=== PATIENT | female | born 1995 | race Caucasian/White ===

== ENCOUNTER → 2020-05-07 11:50 | Outpatient (CLI) | payer BC, SELFPAY ==
[2020-05-07 11:14] VITALS: BMI 23.6
[2020-05-07 12:35] LABS: hCG Titer Quant., Serum 514 mIU/mL (1-3)
== END ==
PROVIDERS: PCP Family Medicine; Referring Provider Obstetrics & Gynecology; Visit Provider Obstetrics & Gynecology
DX: O20.0 Threatened abortion (principal)
CPT/HCPCS: 36415; 84702

== ENCOUNTER → 2020-05-09 09:26 | Outpatient (CLI) | payer BC, SELFPAY ==
[2020-05-07 11:14] VITALS: BMI 23.6
[2020-05-09 10:56] LABS: hCG Titer Quant., Serum 1175 mIU/mL (1-3)
== END ==
PROVIDERS: PCP Family Medicine; Visit Provider Obstetrics & Gynecology
DX: O20.0 Threatened abortion (principal)
CPT/HCPCS: 36415; 84702

== ENCOUNTER → 2020-06-02 | Outpatient (CLI) | payer BC, SELFPAY ==
[2020-06-02 11:32] VITALS: BMI 27.8
[2020-06-02 14:23] LABS: Amphetamine Urine VISTA NEGATIVE (<1000 ng/mL); Barbiturate Urine VISTA NEGATIVE (< 200 ng/mL); Benzodiazepine Urine VISTA NEGATIVE (< 200 ng/mL); Cocaine Urine VISTA NEGATIVE (< 300 ng/mL); Ecstacy Urine VISTA NEGATIVE (< 500 ng/mL); Methadone Urine VISTA NEGATIVE (< 300 ng/mL); PCP Urine VISTA NEGATIVE (< 25 ng/mL); THC Urine VISTA NEGATIVE (< 50 ng/mL); Vista UDS pH Range 7
[2020-06-04 20:34] LABS: HPV Reflexed? NOT INDICATED
[2020-06-05 03:06] LABS: Chlamydia By Nucleic Acid AMP Negative (Negative)
[2020-06-05 14:12] LABS: Gonococcus By Nucleic Acid AMP Negative (Negative)
== END | disposition home or self-care (01) ==
PROVIDERS: PCP Family Medicine; Referring Provider Obstetrics & Gynecology; Visit Provider Obstetrics & Gynecology
DX: Z34.00 Encounter for supervision of normal first pregnancy, unspecified trimester (principal)
CPT/HCPCS: 80307; 87086; 87088; 87491; 87591; 88175; G0145

== ENCOUNTER → 2020-06-15 08:16 | Outpatient (CLI) | payer BC, SELFPAY ==
[2020-06-02 11:32] VITALS: BMI 27.8
[2020-06-15 08:47] LABS: Absolute Lymphocyte Count 2.24 X10^3/uL (0.83-4.51); Absolute Neutrophil Count 6.2 X10^3/uL (2.0-7.7); Basophil# 0.04 X10^3/uL; Basophil% 0.4 % (0-1); Eosinophil# 0.11 X10^3/uL; Eosinophils% 1.2 % (0-5); Hematocrit 38.2 % (37-47); Hemoglobin 12.8 g/dL (12.0-15.0); Lymphocyte # 2.24 X10^3/ul (4.0); Lymphocyte % 24.5 % (19-41); Mean Corp Hgb Conc 33.5 g/dL (32-36); Mean Corpuscular Hgb 29.6 pg (27.0-32.0); Mean Corpuscular Volume 88.2 fL (81-99); Mean Platelet Vol. 9.1 fl (6.2-12.0); Monocyte% 5.5 % (0-10); NRBC Flagged by Analyzer 0 % (0-5); Neutrophil # 6.23 X10^3/uL (2.7-7.7); Platelet Count 347 K/mm3 (150-450); RBC Distribution Width CV 13.1 % (11.6-14.6); RBC Distribution Width SD 42.3 fl (35.1-43.9); Red Blood Count 4.33 M/mm3 (4.2-5.4); White Blood Count 9.2 K/mm3 (4.4-11.0)
[2020-06-15 09:15] LABS: Thyroid Stim Hormone (TSH) 3.41 uIU/mL (0.358-3.74)
[2020-06-15 10:38] LABS: HIV - WCH Non-Reactive (Nonreactive); Hepatitis B Surface Antigen Non-Reactive (Nonreactive); Hepatitis C Antibody Non-Reactive (Nonreactive); Rubella IgG 120.5 IU/mL
[2020-06-15 17:09] LABS: NATERA MAILED SPECIMEN
[2020-06-17 03:03] LABS: Rapid Plasmin Reagin (RPR) NONREACTIVE (NONREACTIVE)
== END ==
PROVIDERS: PCP Family Medicine; Referring Provider Obstetrics & Gynecology; Visit Provider Obstetrics & Gynecology
DX: Z34.81 Encounter for supervision of other normal pregnancy, first trimester (principal)
CPT/HCPCS: 36415; 84443; 85025; 86592; 86703; 86762; 86803; 86850; 86900; 86901; 87340

== ENCOUNTER → 2020-06-30 11:27 | Outpatient (CLI) | payer BC, SELFPAY ==
[2020-06-30 10:52] VITALS: BMI 27.6
== END ==
PROVIDERS: PCP Family Medicine; Referring Provider Obstetrics & Gynecology; Visit Provider Obstetrics & Gynecology
DX: Z34.81 Encounter for supervision of other normal pregnancy, first trimester (principal)

== ENCOUNTER → 2020-10-18 08:49 | Outpatient (CLI) | payer BC, SELFPAY ==
[2020-09-21 13:07] VITALS: BMI 29.8
[2020-10-18 09:19] LABS: Absolute Lymphocyte Count 1.91 X10^3/uL (0.83-4.51); Absolute Neutrophil Count 10.5 X10^3/uL (2.0-7.7); Basophil# 0.07 X10^3/uL; Basophil% 0.5 % (0-1); Eosinophil# 0.06 X10^3/uL; Eosinophils% 0.4 % (0-5); Hematocrit 36.1 % (37-47); Hemoglobin 12.1 g/dL (12.0-15.0); Lymphocyte # 1.91 X10^3/ul (4.0); Lymphocyte % 14.2 % (19-41); Mean Corp Hgb Conc 33.5 g/dL (32-36); Mean Corpuscular Hgb 29.9 pg (27.0-32.0); Mean Corpuscular Volume 89.1 fL (81-99); Mean Platelet Vol. 9.1 fl (6.2-12.0); Monocyte# 0.67 X10^3/uL; NRBC Flagged by Analyzer 0 % (0-5); Neutrophil # 10.49 X10^3/uL (2.7-7.7); Neutrophil % 78.2 % (47-70); Platelet Count 329 K/mm3 (150-450); RBC Distribution Width CV 12.8 % (11.6-14.6); RBC Distribution Width SD 41.4 fl (35.1-43.9); Red Blood Count 4.05 M/mm3 (4.2-5.4); White Blood Count 13.4 K/mm3 (4.4-11.0)
[2020-10-18 09:39] LABS: Glucose Challenge Gest 1H 50g 139 mg/dL (70-140); Thyroid Stim Hormone (TSH) 9.52 uIU/mL (0.358-3.74)
== END ==
PROVIDERS: PCP Family Medicine; Referring Provider Obstetrics & Gynecology; Visit Provider Obstetrics & Gynecology
DX: O99.280 Endocrine, nutritional and metabolic diseases complicating pregnancy, unspecified trimester (principal); E89.0 Postprocedural hypothyroidism; Z13.1 Encounter for screening for diabetes mellitus; Z3A.00 Weeks of gestation of pregnancy not specified
CPT/HCPCS: 36415; 82950; 84439; 84443; 85025

== ENCOUNTER → 2020-10-21 06:47 | Outpatient (CLI) | payer BC, SELFPAY ==
[2020-10-18 09:33] VITALS: BMI 30.9
[2020-10-21 08:03] LABS: Glucose GTT-Gestation. Fasting 72 mg/dL (<105)
[2020-10-21 08:53] LABS: Glucose GTT-Gestational 1 Hr 203 mg/dL (<190)
[2020-10-21 09:33] LABS: Glucose GTT-Gestational 2 Hr 181 mg/dL (<165)
[2020-10-21 10:47] LABS: Glucose GTT-Gestational 3 Hr 126 L (<145)
== END ==
PROVIDERS: PCP Family Medicine; Referring Provider Obstetrics & Gynecology; Visit Provider Obstetrics & Gynecology
DX: O99.810 Abnormal glucose complicating pregnancy (principal); Z3A.00 Weeks of gestation of pregnancy not specified
CPT/HCPCS: 36415; 82951; 82952

== ENCOUNTER → 2020-11-15 08:46 | Outpatient (CLI) | payer BC, SELFPAY ==
[2020-11-01 13:41] VITALS: BMI 29.9
--- NOTE | 2020-11-15 08:49 | US_ITS ---
STUDY: SECOND AND THIRD TRIMESTER OBSTETRICAL ULTRASOUND - LIMITED REASON FOR EXAM: Female, 25 years old growth LMP: 04/04/2020. PRIOR ULTRASOUND: None. TECHNIQUE: Transabdominal TECHNICAL QUALITY: Adequate. FINDINGS: There is a single intrauterine fetus. The fetus is in an transverse lie with the head on the maternal left side. There is demonstrated cardiac activity with a heart rate of 147 bpm. There is a normal amniotic fluid volume. The largest amniotic fluid pocket measures 6.8 cm. The amniotic fluid index (ADRIANA) is 18.3 cm. The placenta is anterior and fundal in location and is not low lying. There are Grade 2 placental changes. The cervix measures 5.85 cm in length. BIOMETRY: BPD: 8.2 cm: 32 weeks, 6 days HC: 30.3 cm: 33 weeks, 4 days AC: 28.5 cm: 32 weeks, 3 days FL: 6.4 cm: 32 weeks, 5 days Age by LMP: 32 weeks, 1 days. MICHAEL by LMP: 01/09/2021. age by current US: 32 weeks, 6 days. MICHAEL by current US: 01/04/2021. Estimated weight: 2049 grams, +/- 307 grams, 60 percentile. US/OB Limited With Biometrics IMPRESSION: Single live intrauterine gestation with a mean gestational age of 32 weeks and 6 days. Electronically Signed: Darwin Cunningham MD at 10:56 EDT , Service support ,
== END ==
PROVIDERS: PCP Family Medicine; Referring Provider Obstetrics & Gynecology; Visit Provider Obstetrics & Gynecology
DX: O24.410 Gestational diabetes mellitus in pregnancy, diet controlled (principal); Z3A.32 32 weeks gestation of pregnancy
CPT/HCPCS: 76816

== ENCOUNTER → 2020-11-24 08:21 | Outpatient (CLI) | payer BC, SELFPAY ==
[2020-11-15 13:24] VITALS: BMI 30.4
[2020-11-24 09:15] LABS: T4 Free Direct 1.28 ng/dL (0.76-1.46); Thyroid Stim Hormone (TSH) 0.74 uIU/mL (0.358-3.74)
[2020-11-24 16:38] LABS: Xtra Tube EP Lab EXTRA TUBE
== END ==
PROVIDERS: PCP Family Medicine; Referring Provider Internal Medicine Endocrinology, Diabetes & Metabolism; Visit Provider Internal Medicine Endocrinology, Diabetes & Metabolism
DX: O99.280 Endocrine, nutritional and metabolic diseases complicating pregnancy, unspecified trimester (principal); E03.9 Hypothyroidism, unspecified; Z3A.00 Weeks of gestation of pregnancy not specified
CPT/HCPCS: 36415; 84439; 84443

== ENCOUNTER 2020-11-24 09:30 | Outpatient (RCR) | payer BC, SELFPAY ==
[2020-10-25 14:09] VITALS: BMI 30.9
== END 2020-11-24 23:59 ==
LOC: NS 09:30
PROVIDERS: PCP Family Medicine; Visit Provider Obstetrics & Gynecology
DX: Z71.3 Dietary counseling and surveillance (principal); O24.419 Gestational diabetes mellitus in pregnancy, unspecified control; Z3A.00 Weeks of gestation of pregnancy not specified
CPT/HCPCS: 97802; G0108

== ENCOUNTER → 2020-12-13 | Outpatient (CLI) | payer BC, SELFPAY ==
[2020-12-13 13:40] VITALS: BMI 30.9
== END | disposition home or self-care (01) ==
LOC: LABSPEC 17:00
PROVIDERS: PCP Family Medicine; Referring Provider Obstetrics & Gynecology; Visit Provider Obstetrics & Gynecology
DX: Z34.00 Encounter for supervision of normal first pregnancy, unspecified trimester (principal)
CPT/HCPCS: 87081

== ENCOUNTER → 2020-12-16 08:46 | Outpatient (CLI) | payer BC, SELFPAY ==
[2020-11-01 13:41] VITALS: BMI 29.9
[2020-12-13 13:40] VITALS: BMI 30.9
--- NOTE | 2020-12-16 08:49 | US_ITS ---
STUDY: SECOND AND THIRD TRIMESTER OBSTETRICAL ULTRASOUND - LIMITED REASON FOR EXAM: Female, 25 years old . growth. Gestational diabetes. LMP: 04/04/2020. PRIOR ULTRASOUND: Comparison is made with prior study dated 11/15/2020. TECHNIQUE: Transabdominal TECHNICAL QUALITY: Adequate. FINDINGS: There is a single intrauterine fetus. The fetus is in a cephalic presentation. There is demonstrated cardiac activity with a heart rate of 145 bpm. There is a normal amniotic fluid volume. The largest amniotic fluid pocket measures 5. cm. The amniotic fluid index (ADRIANA) is 12.4 cm. The placenta is anterior in location and is not low lying. There are Grade 3 placental changes. BIOMETRY: BPD: 9.1 cm: 37 weeks, 0 days HC: 32.9 cm: 37 weeks, 2 days AC: 32.2 cm: 36 weeks, 0 days FL: 6.8 cm: 35 weeks, 0 days Age by LMP: 36 weeks, 4 days. MICHAEL by LMP: 01/09/2021. age by prior US: 37 weeks, 2 days. MICHAEL by prior US: 01/04/2021. age by current US: 36 weeks, 1 days. MICHAEL by current US: 01/11/2021. Estimated weight: 2826 grams, +/- 424 grams, 42 percentile. US/OB Limited With Biometrics IMPRESSION: Single live intrauterine gestation with a mean gestational age of 37 weeks and 2 days. The measurements obtained today fall within the normal expected range. Electronically Signed: Darwin Cunningham MD at 11:10 EDT , Service support ,
== END ==
PROVIDERS: PCP Family Medicine; Referring Provider Obstetrics & Gynecology; Visit Provider Obstetrics & Gynecology
DX: O24.410 Gestational diabetes mellitus in pregnancy, diet controlled (principal); Z3A.37 37 weeks gestation of pregnancy
CPT/HCPCS: 76816

== ENCOUNTER → 2021-01-03 15:29 | Outpatient (CLI) | payer BC, SELFPAY ==
[2020-12-13 13:40] VITALS: BMI 30.9
[2021-01-03 13:24] VITALS: BMI 31.3
== END ==
PROVIDERS: PCP Family Medicine; Visit Provider Obstetrics & Gynecology
DX: Z34.90 Encounter for supervision of normal pregnancy, unspecified, unspecified trimester (principal)
CPT/HCPCS: 87635; C9803; U0002

== ENCOUNTER 2021-01-07 05:00 | Inpatient (IN) | payer BC, SELFPAY ==
[2021-01-03 13:24] VITALS: BMI 31.3
[2021-01-07] VITALS (40 sets, daily range): BP systolic 110–151; BP diastolic 63–92; PULSE 83–116; TEMP 36.6–37.8; O2SAT 97–100; BMI 32.3
[2021-01-07] MEDS: Lactated Ringers 1,000 ML 50 ML IV (06:45)
[2021-01-07 06:56] LABS: Bedside Glucose 102 mg/dL (70-110)
--- NOTE | 2021-01-07 07:33 | HP.PCM.OB_ITS ---
HPI - General General Date of Admission: 01/07/21 HPI Narrative MERON GO, is a 25 F at 39/5 who presents with contractions and was scheduled for IOL for GDMA1 this am. COUNT INCLUDES THE [facility] Medical History (Updated 01/07/21 @ 07:[address] 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 Thyroid disease Thyroid nodule Home Medications multivitamin no.47-iron fum 27 mg-folate no.1 1 mg-dha 300 mg capsule 1 cap PO DAILY 05/25/20 [History Last Taken Unknown] blood sugar diagnostic #100 ea 10/21/20 [Rx Last Taken Unknown] blood-glucose meter #1 ea 10/21/20 [Rx Last Taken Unknown] lancets 30 gauge #100 ea 10/21/20 [Rx Last Taken Unknown] blood-glucose meter #1 ea 10/26/20 [History Last Taken Unknown] levothyroxine 175 mcg tablet 175 mcg PO DAILY tab 10/26/20 [History Last Taken Unknown] Allergy/AdvReac Type Severity Reaction Status Date / Time ibuprofen [From Advil] Allergy Severe mouth Verified 01/07/21 05:37 tingles and tounge swells naproxen [From Aleve] Allergy Severe Anaphylaxis Verified 01/07/21 05:37 Family History Other Colon cancer Diabetes Heart disease Surgical History H/O thyroidectomy (~2009) History of tonsillectomy and adenoidectomy Social History household members: spouse current occupational status: employed current occupation: [employer] pets and animals: Yes Smoking Status: Former smoker second hand exposure: No alcohol intake: never substance use type: does not use seatbelt use: always do you feel safe at home: Yes additional social history: REBECCA Sylvester History 1 Elective abortions Hx Para 0 Spontaneous abortions Hx # Term Pregnancies Ectopic pregnancies Hx # Pregnancies Multiple births # of living children Visit Details Expected Delivery Route/Plan Labor Preferences- CB/BF classes: discussed, planning , labor support person: [place], mom- Audria labor intervention preferences: pain management options preferred: epidural cut cord/dad catch: yes : yes PP control planned: pill discussed possible routes of delivery and associated risks: discussed possible delivery modalities and possible indications for each including R/B/A of , VAVD, FAVD, and CS. questions answered. special requests: [] Plans flu vaccine: decline tdap vaccine: given rhogam: na LARC form signed: declined movement and labor precautions reviewed. Problem list reviewed and updated with the most current plan of care details and appropriate orders placed. Relevant counseling for the gestational age provided. Continue routine care and follow up unless otherwise noted in visit notes/problem list details OB Flowsheet Initial Weight: 172 lb Date -?-?-?-?-?-?-?-?-?-?-?-?- EGA Weight BP Urine Prot -?-?-?-?-?-?-?-?-?-?-?-?- Glucose FHR FuHt Pres Dilation -?-?-?-?-?-?-?-?-?-?-?-?- Effaced St Visit Note 06/02/20 -?-?-?-?-?-?-?-?-?-?-?-?- 8w 3d 172 lb 8 oz (+8 oz) 126/80 -?-?-?-?-?-?-?-?-?-?-?-?- 170 -?-?-?-?-?-?-?-?-?-?-?--?- GP - CRL consist ent with LMP. 06/30/20 -?-?-?-?-?-?-?-?-?-?-?-?- 12w 3d 171 lb 2 oz (-14 oz) 124/82 -?-?-?-?-?-?-?-?-?-?-?-?- 160 -?-?-?-?-?-?-?-?-?-?-?-?- GP - no cramping or bleeding. PRR. Discussed NIPT low fraction - repeat blood draw today. 07/27/20 -?-?-?-?-?-?-?-?-?-?-?-?- 16w 2d 173 lb 6 oz (+1 lb 6 oz) 104/70 Negative -?-?-?-?-?-?-?-?-?-?-?-?- Negative 156 -?-?-?-?-?-?-?-?-?-?-?--?- MH-No Vb, LOF. Denies concerns. Anatomy US 08/1208/25/20 -?-?-?-?-?-?-?-?-?-?-?-?- 20w 3d 176 lb 4 oz (+4 lb 4 oz) 110/72 Negative -?-?-?-?-?-?-?-?-?-?-?-?- Negative 155 -?-?-?-?-?-?-?-?-?-?-?-?- GP - no ctx, LOF , VB. +FM. Anatomy results reviewed. Discussed MFM recommended growth US 2/2 hypothyroid - after discussion with patient will plan for 1 growth at 36 weeks. 10/18/20 -?-?-?-?-?-?-?-?-?-?-?-?- 28w 1d 192 lb (+20 lb) 100/78 Negative -?-?-?-?-?-?-?-?-?-?-?-?- Negative 150 -?-?-?-?-?-?-?-?-?-?-?-?- SM- ordered 3 hr gtt, no vb lof good fm no regular ctx. planning CB classes, discussed abnl thyroid testing and glucose. 11/01/20 -?-?-?-?-?-?-?-?-?-?-?-?- 30w 1d 191 lb 4 oz (+19 lb 4 oz) 114/82 -?-?-?--?-?-?-?-?-?-?-?-?- 145 30 -?-?-?-?-?-?-?-?-?-?-?-?- GP - no LOF, VB, DFM, ctx. Discussed GDM diagnosis. BGTs controlled with diet. Discussed timing of delivery and growths q4w 11/15/20 -?-?-?-?-?-?-?-?-?-?-?-?- 32w 1d 194 lb (+22 lb) 124/78 Negative -?-?-?-?-?-?-?-?-?-?-?-?- Negative 140 32 -?-?-?-?-?-?-?-?-?-?-?-?- SM- no vb lof go od fm no regular ctx 11/29/20 -?-?-?-?-?-?-?-?-?-?-?-?- 34w 1d 195 lb (+23 lb) 120/76 Negative -?-?-?-?-?-?-?-?-?-?-?-?- Negative 145 34 -?-?-?-?-?-?-?-?-?-?-?-?- SM- no vb lof go od fm no regular ctx 12/13/20 -?-?-?-?-?-?-?-?-?-?-?-?- 36w 1d 197 lb 8 oz (+25 lb 8 oz) 116/90 120/82 Negative -?-?-?-?-?-?-?-?-?-?-?-?- Negative 140 36 Cephalic 0 .5 -?-?-?-?-?-?-?-?-?-?-?-?- 50 -3 GP - no LO F, VB, DFM, ctx. Discussed routes of delivery. BGTs well controlled with diet. 12/20/20 -?-?-?-?-?-?-?-?-?-?-?-?- 37w 1d 200 lb (+28 lb) -?-?-?-?-?-?-?-?-?-?-?-?- 140 37 Cephalic 1 -?-?-?-?-?-?-?-?-?-?-?-?- SM- no vb lof go od fm n regular ctx BS well controlled 12/27/20 -?-?-?-?-?-?-?-?-?-?-?-?- 38w 1d 203 lb 1 oz (+31 lb 1 oz) 120/86 Negative -?-?-?-?-?-?-?-?-?-?-?-?- Negative 140 38 Cephalic 1 -?-?-?-?-?-?-?-?-?-?-?-?- 50 -3 GP - no LO F, VB, dFM, ctx. BGTs controlled. Will schedule IOL at next visit. 01/03/21 -?-?--?-?-?-?-?-?-?-?-?-?- 39w 1d 201 lb (+29 lb) 120/82 Negative -?-?-?-?-?-?-?-?-?-?-?-?- Negative 140 39 Cephalic 1 -?-?-?-?-?-?-?-?-?-?--?-?- 50 -3 SM- no vb lof good fm n oreuglar ctx discussed IOL by the end of the week for GDMA1 01/07/21 -?-?-?-?-?-?-?-?-?-?-?-?- 39w 5d 200 lb 6 oz (+28 lb 6 oz) 151/92 136/78 133/79 131/83 124/84 -?-?-?-?-?-?-?-?-?-?-?-?- -?-?-?-?-?-?-?-?-?-?-?-?- GP - Admitted in active labor and for iol for GDMA1 NST FHR Rate Baby A Baseline: 140 Variability:: Moderate Accelerations:: 15 x 15 Decelerations:: None NST Reactive:: Yes FHR Category:: Category I Uterine Activity:: q5 min ROS Eyes Eyes: Reports systems reviewed and no addt'l complaints, except as documented ENT HEENT: Reports systems reviewed and no addt'l complaints, except as documented Cardiovascular Cardiovascular: Reports systems reviewed and no addt'l complaints, except as documented Respiratory/Chest Respiratory/Chest: Reports systems reviewed and no addt'l complaints, except as documented Gastrointestinal Gastrointestinal: Reports systems reviewed and no addt'l complaints, except as documented Genitourinary Genitourinary: Reports systems reviewed and no addt'l complaints, except as documented Musculoskeletal Musculoskeletal: Reports systems reviewed and no addt'l complaints, except as documented Integumentary Integumentary: Reports systems reviewed and no addt'l complaints, except as documented Neurologic Neurologic: Reports systems reviewed and no addt'l complaints, except as documented Psychiatric Psychiatric: Reports systems reviewed and no addt'l complaints, except as documented Endocrine Endocrinology: Reports systems reviewed and no addt'l complaints, except as documented Hematologic/Lymphatic Hematologic/Lymphatic: Reports systems reviewed and no addt'l complaints, except as documented Allergic/Immunologic Allergic/Immunologic: Reports systems reviewed and no addt'l complaints, except as documented Vital Signs Vital Signs Vital Signs: 01/07/21 05:12 01/07/21 05:28 01/07/21 05:43 Temperature Temperature Source Pulse Rate 113 H 101 H 94 Blood Pressure 151/92 H 136/78 H 133/79 H BP Systolic 151 136 133 BP Diastolic 92 78 79 Pulse Ox 01/07/21 05:58 01/07/21 06:06 01/07/21 07:24 Temperature 98.9 F 98.3 F Temperature Source Temporal Temporal Pulse Rate 116 H Blood Pressure 131/83 H BP Systolic 131 BP Diastolic 83 Pulse Ox 98 01/07/21 07:27 Temperature Temperature Source Pulse Rate 105 H Blood Pressure 124/84 H BP Systolic 124 BP Diastolic 84 Pulse Ox 97 Physical Exam Const alert, oriented x3, no apparent distress, average body habitus, healthy appearing and well nourished HEENT normocephalic and moist oral mucous membranes Head and Scalp: atraumatic Eyes PERRL and EOMs intact bilaterally Neck full ROM Resp normal respiratory effort, no retractions and no use of accessory muscles Cardio regular rate and regular rhythm GI soft to palpation, non-tender and non-distended Extremity normal to inspection and full ROM Skin no rashes or lesions noted Neuro no focal motor deficits and no sensory deficits noted Psych mental status grossly normal, affect normal, speech normal and activity/motor behavior normal Assessment & Plan (1) Active labor: PLAN: Patient presents IAL, plan expectant management for , pitocin/AROM PRN if needed. Pain management: plans epidural. GBS .negative Management of any complications: GDMA1 - BGTs per protocol [facility] and made any clinically relevant updates. (2) : QUALIFIERS: Weeks of gestation: 38 weeks Qualified Code(s): Z3A.38 - 38 weeks gestation of COMMENT: Declines carrier and AFP. NIPT low FF - repeated. NIPT low risk; NL anatomy (3) Supervision of normal first : QUALIFIERS: Trimester: third trimester Qualified Code(s): Z34.03 - Encounter for supervision of normal first , third trimester COMMENT: PRR MICHAEL 01/09/2021 Girl! Tiffanie Spouse: [place] (4) Thyroid disease affecting : (5) H/O thyroidectomy: COMMENT: [facility] rec serial growth US. After discussion with patient, as long as measuring appropriately will plan growth at 36w. (6) Gestational diabetes: QUALIFIERS: Gestational diabetes mellitus control: diet-controlled Trimester: third trimester Qualified Code(s): O24.410 - Gestational diabetes mellitus in , diet controlled COMMENT: Following with Dr. Jay. Diet controlled. Growths q4w. Timing of delivery 39-40w depending on glycemic control. NL growth 60% 11/15/20
--- NOTE | 2021-01-07 07:42 | DCINST_ITS ---
Discharge Instructions Diet Discharge Diet: No restrictions Activity Discharge Activity: May Not Drive (for 2 weeks), May not drive while taking narcotic pain medications., May Shower and May Take a Tub Bath (in 7 days) May shower in (days): 0 May resume sexual activity in: 4-6 weeks Weight Bearing Status: Full weight bearing Lifting Restrictions: 20 pounds Dressing / Incision Call your doctor if your incision/area has: Continuous Slow Oozing, Sudden Increased Bleeding, Increased Pain/ Swelling, Increased Redness and Foul Smel ling Discharge Call your doctor if you observe: Fever of 101 or Higher and Using more than one pad per hour (for 2 hours) Suture Line Care: Avoid Pulling/Pushing and Avoid Pinching/Bending Cleanse incision/area with: Soap & Water and Keep Dressing Clean & Dry Follow Up Care Please Follow Up With: Aileen Guardado MD When: Call [phone] to make an appointment for an incision check in 1-2 weeks. Test Results: Test results from this visit will be discussed in further detail at your follow-up appointment, if applicable. Discharge Plan Admission Admit Date/Time: 01/07/21 05:00 Attending Provider: Alis Miranda Primary Care Provider: Frank Shoemaker Discharge Orders/Prescriptions Prescriptions: No Action PNV-DHA 27 mg iron-1 mg -300 mg capsule 1 cap PO DAILY RF: 0 levothyroxine 175 mcg tablet 175 mcg PO DAILY RF: 0 (DME) blood-glucose meter Kit See Rx Instructions ea .ROUTE .MEDSUPPLY Qty: 1 RF: 0 (DME) blood-glucose meter Misc See Rx Instructions .ROUTE .MEDSUPPLY Qty: 1 RF: 0 (DME) Blood Glucose Test Strip See Rx Instructions .ROUTE .MEDSUPPLY Qty: 100 RF: 6 (DME) lancets 30 gauge misc See Rx Instructions .ROUTE .MEDSUPPLY Qty: 100 RF: 6 Referrals / Follow Up: Frank Shoemaker [Primary Care Provider] -
--- NOTE | 2021-01-07 07:48 | PN.OBGYN_ITS ---
Objective Data Objective Data Vital Signs: Vital Signs Temp Pulse BP Pulse Ox 98.3 F 105 H 124/84 H 97 01/07/21 07:24 01/07/21 07:27 01/07/21 07:27 01/07/21 07:27 Weight: 200 lb 6 oz Body Mass Index (BMI) 32.3 Lab / Micro Data Result Diagrams: 01/07/21 06:35 Labs: Laboratory Results - last 24 hr 01/07/21 01/07/21 01/07/21 06:27 06:35 06:35 WBC Cancelled Corrected WBC Cancelled RBC Cancelled Hgb Cancelled Hct Cancelled MCV Cancelled MCH Cancelled MCHC Cancelled RDW Std Deviation Cancelled RDW Coeff of Abdiaziz Cancelled Plt Count Cancelled MPV Cancelled Immature Gran % (Auto) Cancelled Neut % (Auto) Cancelled Lymph % (Auto) Cancelled [place] % (Auto) Cancelled Eos % (Auto) Cancelled Baso % (Auto) Cancelled Absolute Neuts (auto) Cancelled Absolute Lymphs (auto) Cancelled Total Counted Cancelled Neutrophils % (Manual) Cancelled Band Neutrophils % Cancelled Lymphocytes % (Manual) Cancelled Monocytes % (Manual) Cancelled Eosinophils % (Manual) Cancelled Basophils % (Manual) Cancelled Metamyelocytes % Cancelled Myelocytes % Cancelled Promyelocytes % Cancelled Blast Cells % Cancelled Plasma Cell % (Manual) Cancelled Other Cells % Cancelled Nucleated RBC % Cancelled Nucleated RBCs/100 WBC Cancelled Differential Comment Cancelled Diff Path Review Cancelled Hypersegmented Neuts Cancelled Atypical Lymphocytes Cancelled Reactive Lymphocytes Cancelled Smudge Cells Cancelled Toxic Granulation Cancelled Toxic Vacuolation Cancelled Dohle Bodies Cancelled Carolina Rods Cancelled Platelet Estimate Cancelled Plt Morphology Comment Cancelled RBC Morphology Cancelled Polychromasia Cancelled Hypochromasia Cancelled Poikilocytosis Cancelled Basophilic Stippling Cancelled Anisocytosis Cancelled Microcytosis Cancelled Macrocytosis Cancelled Spherocytes Cancelled Sickle Cells Cancelled Target Cells Cancelled Tear Drop Cells Cancelled Ovalocytes Cancelled Stomatocytes Cancelled [place] Bodies Cancelled Francisco Cells Cancelled Bite Cells Cancelled Crenated Cell Cancelled Acanthocytes (Spur) Cancelled Rouleaux Cancelled Schistocytes Cancelled POC Glucose 102 Blood Type Cancelled Antibody Screen Cancelled Assessment & Plan (1) Active labor: PLAN: s/p PPD # 2 1. routine post delivery care 2. breast feeding- support given 3. rh positive 4. rubella immune
[2021-01-07 08:31] LABS: Absolute Lymphocyte Count 2.06 X10^3/uL (0.83-4.51); Absolute Neutrophil Count 10.5 X10^3/uL (2.0-7.7); Basophil# 0.06 X10^3/uL; Basophil% 0.4 % (0-1); Eosinophil# 0.31 X10^3/uL; Eosinophils% 2.2 % (0-5); Hematocrit 39.1 % (37-47); Hemoglobin 12.6 g/dL (12.0-15.0); Lymphocyte # 2.06 X10^3/ul (0.83-4.51); Lymphocyte % 14.7 % (19-41); Mean Corp Hgb Conc 32.2 g/dL (32-36); Mean Corpuscular Hgb 28.2 pg (27.0-32.0); Mean Corpuscular Volume 87.5 fL (81-99); Mean Platelet Vol. 9.6 fl (6.2-12.0); Monocyte# 0.99 X10^3/uL; NRBC Flagged by Analyzer 0 % (0-5); Neutrophil # 10.48 X10^3/uL (2.7-7.7); Neutrophil % 74.6 % (47-70); Platelet Count 328 K/mm3 (150-450); RBC Distribution Width CV 13.2 % (11.6-14.6); RBC Distribution Width SD 41.9 fl (35.1-43.9); Red Blood Count 4.47 M/mm3 (4.2-5.4); White Blood Count 14.1 K/mm3 (4.4-11.0)
[2021-01-07 08:36] LABS: Bedside Glucose 105 mg/dL (70-110)
[2021-01-07] MEDS: Oxytocin 30 units/NS 500 ml 30 UNITS/500 ML IV.SOLN IV (09:33)
[2021-01-07 10:36] LABS: Bedside Glucose 113 mg/dL (70-110)
[2021-01-07 11:36] LABS: Bedside Glucose 85 mg/dL (70-110)
[2021-01-07] MEDS: Lactated Ringers 500 ML 999 ML IV (12:13)
[2021-01-07] MEDS: fentaNYL-bupivacaine (epidural) 100 ML BAG EPIDURAL ×3 (13:36→22:23)
[2021-01-07 15:36] LABS: Bedside Glucose 77 mg/dL (70-110)
[2021-01-07 15:36] LABS: Bedside Glucose 80 mg/dL (70-110)
[2021-01-07] MEDS: Lactated Ringers 1,000 ML 200 ML IV ×2 (16:28→21:22)
[2021-01-07 16:46] LABS: Bedside Glucose 80 mg/dL (70-110)
[2021-01-07 18:01] LABS: Bedside Glucose 81 mg/dL (70-110)
[2021-01-07 18:35] LABS: Bedside Glucose 90 mg/dL (70-110)
[2021-01-07 19:41] LABS: Bedside Glucose 70 mg/dL (70-110)
[2021-01-07 20:46] LABS: Bedside Glucose 105 mg/dL (70-110)
[2021-01-07 21:35] LABS: Bedside Glucose 98 mg/dL (70-110)
[2021-01-07 22:36] LABS: Bedside Glucose 109 mg/dL (70-110)
[2021-01-07 23:40] LABS: Bedside Glucose 92 mg/dL (70-110)
[2021-01-08] VITALS (34 sets, daily range): BP systolic 103–141; BP diastolic 57–89; PULSE 88–224; RESP 16–18; TEMP 36.2–38.2; O2SAT 82–100
[2021-01-08] MEDS: Ondansetron 4 MG/2 ML Vial IV (00:44)
[2021-01-08 00:46] LABS: Bedside Glucose 110 mg/dL (70-110)
[2021-01-08 01:41] LABS: Bedside Glucose 122 mg/dL (70-110)
--- NOTE | 2021-01-08 01:42 | EX.PCM.OBRPT ---
Maternal Data Information MICHAEL Calculator Estimated Delivery Date Method Current WG Current Estimate 01/09/21 LMP (Certain) 39w 6d Other Estimates 01/12/21 Ultrasound #1 39w 3d Vaginal Delivery Maternal Presentation Maternal Presentation: Active Labor Type of Induction: Pitocin Medical Reason for Induction: Maternal Medical Condition: list: (gdma1) Operative Information Pre-Operative Diagnosis: IAL Post-Operative Diagnosis: same Surgery / Procedure Performed: Spontaneous Vaginal Delivery Type of Anesthesia: Epidural Special Medications: none Estimated Blood Loss: 200 Fluids Replaced: crystalloid Findings Description of Procedure: Patient began pushing and delivered the head in the SABINA presentation. The head was delivered atraumatically. The anterior and posterior shoulders delivered without complication followed by the rest of the and the was placed on the maternal abdomen. Delayed cord clamping was employed for approximately 60 seconds. Cord was clamped and cut and gentle traction was applied to the cord and the placenta delivered spontaneously immediately following it was noted to be intact with three-vessel cord. The perineum and vagina were inspected and noted to have a first-degree perineal laceration that was repaired in the usual fashion with 3-0 Vicryl repeat. EBL was 200 cc. Patient and infant tolerated delivery well. Presentation: SABINA and LEANDRO Amniotic Membrane Rupture Type: Artificial Amniotic Fluid Description: Clear Placental Delivery Description: Spontaneous Placenta Disposition: [facility] Cord Vessel Description: 3 Vessels Cord Entanglement: None A Gender: Female Delayed Cord Clamping: Yes Post Vaginal Delivery Medications Given After Delivery: IV Pitocin Episiotomy Description: None Laceration: None Complication Complications: None Procedures Urinary/Genital [id number]: [id number] Vaginal Delivery [facility]
--- NOTE | 2021-01-08 01:48 | PCM.DC ---
Discharge Instructions Diet Discharge Diet: No restrictions Activity Discharge Activity: Return to Normal Activity, May not drive while taking narcotic pain medications. and May Shower May resume sexual activity in: 4-6 weeks Dressing / Incision Call your doctor if your incision/area has: Continuous Slow Oozing, Sudden Increased Bleeding, Increased Pain/ Swelling, Increased Redness and Foul Smelling Discharge Follow Up Care Please Follow Up With: Aileen Guardado MD When: Call [phone] to make an appointment with your doctor in 6 weeks. If you had elevated blood pressure or 4th degree laceration, you will need to be seen in 2 weeks. Test Results: Test results from this visit will be discussed in further detail at your follow-up appointment, if applicable. Discharge Plan Admission Admit Date/Time: 01/07/21 05:00 Attending Provider: Alis Miranda Primary Care Provider: Frank Shoemaker Discharge Orders/Prescriptions Prescriptions: New naproxen 250 MG tablet 250 - 500 mg PO Q8H PRN PRN (Reason: MILD PAIN) Qty: 30 RF: 1 Continued levothyroxine 175 mcg tablet 175 mcg PO DAILY RF: 0 No Action PNV-DHA 27 mg iron-1 mg -300 mg capsule 1 cap PO DAILY RF: 0 (DME) blood-glucose meter Kit See Rx Instructions ea .ROUTE .MEDSUPPLY Qty: 1 RF: 0 (DME) blood-glucose meter Misc See Rx Instructions .ROUTE .MEDSUPPLY Qty: 1 RF: 0 (DME) Blood Glucose Test Strip See Rx Instructions .ROUTE .MEDSUPPLY Qty: 100 RF: 6 (DME) lancets 30 gauge misc See Rx Instructions .ROUTE .MEDSUPPLY Qty: 100 RF: 6 Referrals / Follow Up: Frank Shoeamker [Primary Care Provider] -
[2021-01-08] MEDS: Oxytocin 30 units/NS 500 ml 30 UNITS/500 ML IV.SOLN 334 UNITS IV (02:02)
--- NOTE | 2021-01-08 02:11 | NURSING ---
noel catheter removed at 0211
[2021-01-08 04:26] LABS: Bedside Glucose 121 mg/dL (70-110)
[2021-01-08] MEDS: Acetaminophen 500 MG Tablet 1000 MG PO ×3 (04:31→20:54)
[2021-01-08] MEDS: Levothyroxine 175 MCG Tablet PO (05:15)
[2021-01-09 00:35] VITALS: BP 118/63; PULSE 79; RESP 16; TEMP 36.1
[2021-01-09 04:58] VITALS: BP 104/70; PULSE 91; RESP 16; TEMP 36.1
[2021-01-09] MEDS: Levothyroxine 175 MCG Tablet PO (05:01)
[2021-01-09 05:26] LABS: Bedside Glucose 78 mg/dL (70-110)
[2021-01-09 08:00] VITALS: BP 119/81; PULSE 82; RESP 14; TEMP 36.9; O2SAT 96
--- NOTE | 2021-01-09 08:25 | PCM.PN.OB ---
Subjective Subjective Patient doing well without complaints. Tolerating PO. Ambulating and voiding without difficulty. feeding well. Denies chest pain, shortness of breath, calf pain/swelling, fevers, chills, lightheadedness. Objective Data Objective Data Vital Signs: Vital Signs Temp Pulse Resp BP Pulse Ox 97 F L 91 16 104/70 96 01/09/21 04:58 01/09/21 04:58 01/09/21 04:58 01/09/21 04:58 01/08/21 04:29 Oxygen Delivery Method Room Air Weight: 200 lb 6 oz Body Mass Index (BMI) 32.3 Intake & Output: Intake and Output for Last 24 Hours 01/07/21 01/08/21 01/09/21 23:59 23:59 23:59 Intake Total 3519.29 / 3519.29 1467.53 / 1467.53 Output Total 2100 / 2100 1100 / 1100 Balance 1419.29 / 1419.29 367.53 / 367.53 Lab / Micro Data Result Diagrams: 01/07/21 08:10 Labs: Laboratory Results - last 24 hr 01/09/21 05:22 POC Glucose 78 ROS Constitutional Constitutional: Reports systems reviewed and no addt'l complaints, except as documented Cardiovascular Cardiovascular: Reports systems reviewed and no addt'l complaints, except as documented Respiratory/Chest Respiratory/Chest: Reports systems reviewed and no addt'l complaints, except as documented Gastrointestinal Gastrointestinal: Reports systems reviewed and no addt'l complaints, except as documented Physical Exam Const alert, oriented x3 and no apparent distress HEENT Head and Scalp: atraumatic Resp normal respiratory effort GI soft to palpation and non-tender Bimanual Exam - Vag & Uterus: uterus non-tender Uterus Palpation: uterus fundus firm (below Umbilicus) Assessment & Plan (1) Gestational diabetes: QUALIFIERS: Gestational diabetes mellitus control: diet-controlled Trimester: third trimester Qualified Code(s): O24.410 - Gestational diabetes mellitus in , diet controlled COMMENT: Following with Dr. Jay. Diet controlled. Growths q4w. Timing of delivery 39-40w depending on glycemic control. NL growth 60% 11/15/20 PLAN: s/p PPD 1 1. routine post delivery care 2. breast feeding- support given 3. rh positive 4. rubella immune
[2021-01-09] MEDS: Acetaminophen 500 MG Tablet 1000 MG PO (08:32)
== END 2021-01-09 13:20 | disposition home or self-care (01) | DRG 807 ==
PROVIDERS: Admitting Provider Obstetrics & Gynecology; PCP Family Medicine; Visit Provider Obstetrics & Gynecology
DX: O24.420 Gestational diabetes mellitus in childbirth, diet controlled (principal); O70.0 First degree perineal laceration during delivery; O99.284 Endocrine, nutritional and metabolic diseases complicating childbirth; E89.0 Postprocedural hypothyroidism; Z79.890 Hormone replacement therapy; Z79.899 Other long term (current) drug therapy; Z87.891 Personal history of nicotine dependence; Z3A.39 39 weeks gestation of pregnancy; Z37.0 Single live birth
CPT/HCPCS: 59025; 59050; 82962; 85025; 86850; 86900; 86901; 99218; J7120; G0378; J2405

== ENCOUNTER → 2021-02-15 14:21 | Outpatient (CLI) | payer BC, SELFPAY ==
[2021-01-07 05:35] VITALS: BMI 32.3
[2021-02-15 15:20] LABS: Thyroid Stim Hormone (TSH) 0.04 uIU/mL (0.358-3.74)
== END ==
PROVIDERS: PCP Family Medicine; Referring Provider Internal Medicine Endocrinology, Diabetes & Metabolism; Visit Provider Internal Medicine Endocrinology, Diabetes & Metabolism
DX: E03.8 Other specified hypothyroidism (principal); E06.3 Autoimmune thyroiditis
CPT/HCPCS: 36415; 84439; 84443

== ENCOUNTER 2021-12-13 22:14 | Emergency (ER) | payer OTHER, SELFPAY ==
[2021-12-13 22:14] VITALS: BP 146/98; PULSE 129; RESP 26; TEMP 36.8; O2SAT 100; BMI 28.0
--- NOTE | 2021-12-13 22:23 | EKG12_ITS ---
Test Reason : CP Blood Pressure : / mmHG Vent. Rate : 122 BPM Atrial Rate : 122 BPM P-R Int : 142 ms QRS Dur : 086 ms QT Int : 386 ms P-R-T Axes : 058 078 029 degrees QTc Int : 550 ms Sinus tachycardia Nonspecific T wave abnormality Abnormal ECG Confirmed by TAMARA SEQUEIRA, GIORGIO ([id number]), slot editor CORAZON FIORE ([id number]) on 12/15/2021 10:56:47 AM Referred By: KENNY Confirmed By:GIORGIO MCDONALD MD
--- NOTE | 2021-12-13 22:24 | EDS_ITS ---
HPI History of Present Illness Chief Complaint: Chest Pain Detail of Chief Complaint: Epigastric pain/burning retrosternal pressure Informant: patient Onset/Context/Timing Onset: Hours (2029 while playing with daughter) Activity at onset: sudden Timing: Continuous Quality: Positive for Burning (Initially in the epigastrium) and Pressure (Moved to the retrosternal area) Current Severity: Mild Maximum Severity: Moderate Worsened By: Exertion and - (Upright position) Relieved By: - (Better supine position) Associated Symptoms: Positive for Nausea, Vomiting, Diaphoresis, Dyspnea and Lightheadedness; Negative for Cough, Fever, Acid Reflux and Palpitations Narrative Narrative: Patient is a 26-year-old female with history of hypothyroidism who presents with epigastric pain that started at 2030 while playing with daughter. Patient ate Welsh fries and hamburger at 1900. She does have history of indigestion when she eats greasy or fried foods. There is no family history of cholelithiasis and she has no history of cholelithiasis. She is on control pills. She has no history of VTE. No recent surgery, immobilization and denies leg pain, swelling or discoloration. She denies sour eructation. She denies black or maroon-colored stool. She states the discomfort did radiate to the back of her lower neck. She denies fever, chills or night sweats. She denies weight gain or weight loss. She denies upper respiratory infectious symptoms. 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 Thyroid disease Thyroid nodule Home Medications multivitamin no.47-iron fum 27 mg-folate no.1 1 mg-dha 300 mg capsule 1 cap PO DAILY 05/25/20 [History Last Taken Unknown] desogestrel 0.15 mg-ethinyl estradiol 0.03 mg tablet 1 tab PO QDAY #28 tab 02/15/21 [Rx Last Taken Unknown] levothyroxine 175 mcg tablet 175 mcg PO .Mon-Sat #60 tab 11/07/21 [Rx Last Taken Unknown] Allergy/AdvReac Type Severity Reaction Status Date / Time ibuprofen [From Advil] Allergy Severe mouth Verified 12/13/21 22:18 tingles and tounge swells naproxen [From Aleve] Allergy Severe Anaphylaxis Verified 12/13/21 22:18 Family History Other Colon cancer Diabetes Heart disease Surgical History H/O thyroidectomy (~2009) History of tonsillectomy and adenoidectomy Social History household members: spouse current occupational status: employed current occupation: [employer] pets and animals: Yes Smoking Status: Never smoker second hand exposure: No alcohol intake: never substance use type: does not use seatbelt use: always do you feel safe at home: Yes additional social history: - [place]- [place] ROS ROS ED Constitutional Constitutional ED: Denies chills, fever(s), subjective, sweats or weight loss Eyes Eyes: Denies blurry vision or change in vision ENT ENT ED: Denies ear pain, rhinorrhea or sore throat Cardiovascular Cardiovascular: Reports as per HPI; Denies orthopnea or paroxysmal nocturnal dyspnea Respiratory/Chest Respiratory/Chest: Reports dyspnea and dyspnea on exertion; Denies cough, orthopnea, paroxysmal nocturnal dyspnea or sputum Gastrointestinal Gastrointestinal: Reports abdominal pain, nausea and vomiting; Denies constipation, diarrhea or melena Genitourinary Genitourinary ED: Denies dysuria, hematuria or urinary frequency Musculoskeletal Musculoskeletal: Reports neck pain; Denies arthralgias, back pain or myalgias Integumentary Denies rash Neurologic Neurologic: Denies headache(s) or weakness Endocrine Endocrinology: Denies polydipsia, polyphagia or polyuria Hematologic/Lymphatic Hematologic/Lymphatic: Denies easy bleeding or easy bruising EXAM Physical Exam Const Vital Signs: 12/13/21 22:14 12/13/21 23:13 Temperature 98.2 F Temperature Source Oral Pulse Rate 129 H 98 Respiratory Rate 26 H 23 H Blood Pressure 146/98 H 134/75 H Blood Pressure Mean 114 94 Pulse Ox 100 99 Oxygen Delivery Method Room Air Room Air Positive well nourished and well developed General Appearance ED: well developed and NAD; Negative for pallor HEENT Reports TM's clear and moist mucous membranes HEENT Narrative: Uvula midline. Posterior pharyngeal erythema or exudate. normocephalic and atraumatic Tympanic Membrane ED: Yes TM's clear Eyes PERRL and EOMs intact bilaterally General Eye ED: Negative for pale conjunctiva or scleral icterus Neck no lymphadenopathy, supple and no JVD Neck Narrative: No carotid bruit noted right or left. Resp normal respiratory effort and clear to auscultation bilaterally Effort and Inspection: respiratory distress Cardio regular rhythm, S1 normal heart sound, S2 normal heart sound and no murmurs Rate: tachycardic GI normal to inspection, nondistended, normoactive bowel sounds, soft to palpation, non-tender and non-distended Back/Spine no thoracic nor lumbar tenderness Cervical Spine: Negative for cervical spine tenderness Extremity normal to inspection Extremity Narrative: Insert lower extremity DVT. General Extremety ED: Negative for edema or tenderness General Extremity: Negative for edema Neuro oriented x3 and CN's II-XII intact bilaterally Sensorium / Orientation: awake and alert Psych Mood & Affect: anxious Skin no rashes or lesions noted and no wounds General Skin Exam: Negative for jaundice or pallor Heart Score History: Slightly/Non-Suspicious ECG: Nonspecific Repolarization Age: </= 45 years Risk Factors: No Risk Factors Score: 1 MDM MDM MDM Narrative Medical decision making narrative: Differential diagnosis would include peptic ulcer disease/GERD, biliary disease, pulmonary embolus and cardiac etiology. Work-up included EKG, chest x-ray and appropriate labs. Since patient is not PERC negative a D-dimer was obtained since she is tachycardic at 122 on the twelve-lead EKG. Patient was informed of her test results. Patient was informed that this may represent biliary disease or GERD. She states she has had episodes when she is awake in the night where she has discomfort. Recommended keeping a diary to see if there is any relationship with greasy or fried foods or eating late etc. Also suggested that she could take omeprazole that is [id number] and see if this alleviates her nighttime intermittent discomfort. Ultrasound of the gallbladder was not obtained since she had a greasy fried meal 4 hours ago and need to wait at least 6 to 8 hours since the gallbladder may be contracted and resulted in a nondiagnostic test. Furthermore patient's transaminases, alk phos and lipase are all normal. Lab Data Attestation: I reviewed the patient's lab results. Lab results narrative: White count is slightly elevated which is nonspecific. D-dimer is normal at 0.44. Comprehensive metabolic panel is not remarkable. Potassium is low at 3.4. Glucose is slightly elevated at 123. High-sensitivity troponin is less than 3. Transaminases are normal. Lipase is normal. Labs: Laboratory Results - last 24 hr 12/13/21 12/13/21 12/13/21 22:40 22:40 22:40 WBC 11.4 H RBC 4.86 Hgb 14.3 Hct 42.4 MCV 87.2 MCH 29.4 MCHC 33.7 RDW Std Deviation 39.6 RDW Coeff of Abdiaziz 12.4 Plt Count 357 MPV 9.4 Immature Gran % (Auto) 0.400 Neut % (Auto) 65.4 Lymph % (Auto) 26.7 Alcorn % (Auto) 6.2 Eos % (Auto) 1.0 Baso % (Auto) 0.3 Absolute Neuts (auto) 7.4 Absolute Lymphs (auto) 3.04 Nucleated RBC % 0 D-Dimer Quant (PE/DVT) 0.44 Sodium 137 Potassium 3.4 L Chloride 106 Carbon Dioxide 23.0 Anion Gap 8 BUN 7 Creatinine 0.80 Estim Creat Clear Calc 99.76 Est GFR (MDRD) Af Amer 110 Est GFR (MDRD) Non-Af 91 BUN/Creatinine Ratio 8.7 L Glucose 123 H Calcium 8.9 Total Bilirubin 0.50 AST 29 ALT 28 Alkaline Phosphatase 118 H Troponin I High Sens < 3 L Total Protein 8.0 Albumin 3.4 Globulin 4.6 H Albumin/Globulin Ratio 0.7 L Lipase 273 Radiography Chest X-Ray - ED: 1 View, Read by ED Physician (Single view portable chest X interpreted by me as normal. Cardiac silhouette and size normal. Perihilar/mediastinum normal. Osseous structures normal.), Normal, Heart, Lungs, Mediastinum (There is no evidence of hiatal hernia.), Bony Structures, No Acute Disease and No Infiltrates Diagnostic Testing: Clinical Impression(s) from Imaging Studies Chest X-Ray 12/13/21 22:40 IMPRESSION: No radiographic evidence of acute cardiopulmonary disease. Electronically Signed: Felipe Jim MD at 22:56 EDT , EKG Initial EKG: Attestation: I personally reviewed and interpreted this EKG as follows: Interpretation: Sinus Tachycardia (Ventricular rate is 122. VA interval is 142 ms. QRS duration 86 ms. QT duration 386 ms. [place] is normal. There is no ossific changes noted in the inferior leads.) Discharge Plan Triage Chief Complaint: Chest Pain ED Provider: Jamie Joel Dx/Rx/DC Orders Clinical Impression: Substernal chest pain, Nausea & vomiting, Sinus tachycardia, Acute dyspnea Instructions: ED Chest Pain, Noncardiac Prescriptions: No Action PNV-DHA 27 mg iron-1 mg -300 mg capsule 1 cap PO DAILY RF: 0 desogestrel-ethinyl estradiol [Apri] 0.15-0.03 mg tablet 1 tab PO QDAY Qty: 28 RF: 12 levothyroxine 175 mcg tablet 175 mcg PO .Mon-Sat Qty: 60 RF: 0 Primary Care Provider: Frank Shoemaker Referrals: Frank Shoemaker DO [Primary Care Provider] - 1 Week Activity Restrictions/Additional Instructions: 1. Recommend keeping a diary of what to eat during the day and when you have the discomfort. 2. Recommend purchasing [id number] omeprazole and take 1 tablet twice a day to see if this alleviates the discomfort you intermittently have at night. 3. This may represent reflux versus biliary disease. Disposition Disposition: Home, Self Care
--- NOTE | 2021-12-13 22:40 | RAD_ITS ---
EXAM: XR CHEST, 1 VIEW CLINICAL INDICATION: Chest discomfort, shortness of breath TECHNIQUE: Frontal view of the chest. This report was created using [employer] report generation technology. COMPARISON: None. FINDINGS: LUNGS AND PLEURAL SPACES: Unremarkable. No consolidation or edema. No pneumothorax. No effusion. HEART: Unremarkable. Cardiac silhouette not enlarged. MEDIASTINUM: Central airways and mediastinal contour are unremarkable. BONES/JOINTS: Unremarkable. SOFT TISSUES: Unremarkable. RAD/Chest 1 View (Portable) IMPRESSION: No radiographic evidence of acute cardiopulmonary disease. Electronically Signed: Felipe Jim MD at 22:56 EDT ,
[2021-12-13 22:52] LABS: Absolute Lymphocyte Count 3.04 X10^3/uL (0.83-4.51); Absolute Neutrophil Count 7.4 X10^3/uL (2.0-7.7); Basophil# 0.03 X10^3/uL; Basophil% 0.3 % (0-1); Eosinophil# 0.11 X10^3/uL; Hematocrit 42.4 % (37-47); Hemoglobin 14.3 g/dL (12.0-15.0); Lymphocyte # 3.04 X10^3/ul (0.83-4.51); Lymphocyte % 26.7 % (19-41); Mean Corp Hgb Conc 33.7 g/dL (32-36); Mean Corpuscular Hgb 29.4 pg (27.0-32.0); Mean Corpuscular Volume 87.2 fL (81-99); Mean Platelet Vol. 9.4 fl (6.2-12.0); Monocyte# 0.71 X10^3/uL; Monocyte% 6.2 % (0-10); NRBC Flagged by Analyzer 0 % (0-5); Neutrophil # 7.44 X10^3/uL (2.7-7.7); Neutrophil % 65.4 % (47-70); Platelet Count 357 K/mm3 (150-450); RBC Distribution Width CV 12.4 % (11.6-14.6); RBC Distribution Width SD 39.6 fl (35.1-43.9); Red Blood Count 4.86 M/mm3 (4.2-5.4); White Blood Count 11.4 K/mm3 (4.4-11.0)
[2021-12-13 23:09] LABS: D-Dimer Quantitative (DVT/PE) 0.44 FEU/ug/m (0.27-0.49)
[2021-12-13 23:13] VITALS: BP 134/75; PULSE 98; RESP 23; O2SAT 99
[2021-12-13 23:17] LABS: ALB/GLOB Ratio 0.7 RATIO (0.9-2.4); AST(SGOT) 29 U/L (15-37); Alanine Aminotransfer ALT/SGPT 28 U/L (13-56); Albumin, Serum 3.4 g/dL (3.2-5.0); Alkaline Phosphatase 118 U/L (45-117); Anion Gap 8 (5-15); BUN 7 mg/dL (7-18); BUN/Creat Ratio 8.7 RATIO (10-20); Calcium,Total 8.9 mg/dL (8.5-10.1); Chloride 106 mmol/L (98-107); EST Glomerular Filtration Rate 91 mL/min (>60); Est Glom Filt Rate - Afr Amer 110 mL/min (>60); Estimated Creatinine Clearance 99.76 ml/min; Globulin 4.6 g/dL (2.2-4.2); Glucose 123 mg/dL (74-106); Lipase 273 U/L (73-393); Potassium 3.4 mmol/L (3.5-5.1); Sodium Level 137 mmol/L (136-145); Troponin-I HS < 3 pg/mL (3.0-54.0)
[2021-12-13 23:48] VITALS: BP 125/76; PULSE 86; RESP 17; O2SAT 97
== END 2021-12-13 23:54 | disposition home or self-care (01) ==
PROVIDERS: Emergency Provider Emergency Medicine; PCP Family Medicine; Visit Provider Emergency Medicine
DX: R07.2 Precordial pain (principal); R11.2 Nausea with vomiting, unspecified; R10.13 Epigastric pain; R00.0 Tachycardia, unspecified; R06.00 Dyspnea, unspecified; E89.0 Postprocedural hypothyroidism; M54.2 Cervicalgia; Z79.3 Long term (current) use of hormonal contraceptives; Z79.890 Hormone replacement therapy; Z79.899 Other long term (current) drug therapy
CPT/HCPCS: 71045; 80053; 83690; 84484; 85025; 85379; 93005; 99283

== ENCOUNTER → 2022-02-16 | Outpatient (CLI) | payer OTHER, SELFPAY ==
[2022-02-16 15:13] LABS: T4 Free Direct 1.47 ng/dL (0.76-1.46); Thyroid Stim Hormone (TSH) 0.42 uIU/mL (0.358-3.74)
== END | disposition home or self-care (01) ==
LOC: PAVLAB 14:08
PROVIDERS: PCP Family Medicine; Referring Provider Internal Medicine Endocrinology, Diabetes & Metabolism; Visit Provider Internal Medicine Endocrinology, Diabetes & Metabolism
DX: E03.8 Other specified hypothyroidism (principal); E06.3 Autoimmune thyroiditis
CPT/HCPCS: 36415; 84439; 84443

== ENCOUNTER → 2023-02-13 | Outpatient (CLI) | payer OTHER, SELFPAY ==
[2023-02-13 14:01] LABS: T4 Free Direct 1.15 ng/dL (0.76-1.46)
== END | disposition home or self-care (01) ==
LOC: BIMLAB 08:22
PROVIDERS: PCP Family Medicine; Referring Provider Internal Medicine Endocrinology, Diabetes & Metabolism; Visit Provider Internal Medicine Endocrinology, Diabetes & Metabolism
DX: E03.8 Other specified hypothyroidism (principal); E06.3 Autoimmune thyroiditis
CPT/HCPCS: 36415; 84439; 84443

== ENCOUNTER → 2023-02-23 | Outpatient (CLI) | payer OTHER, SELFPAY ==
[2023-03-01 19:12] LABS: HPV Reflexed? NOT INDICATED
== END | disposition home or self-care (01) ==
LOC: LABSPEC 16:34
PROVIDERS: PCP Family Medicine; Referring Provider Obstetrics & Gynecology; Visit Provider Obstetrics & Gynecology
DX: Z12.4 Encounter for screening for malignant neoplasm of cervix (principal)
CPT/HCPCS: 88175; G0145

== ENCOUNTER → 2023-04-03 | Outpatient (CLI) | payer OTHER, SELFPAY ==
[2023-04-03 09:48] LABS: T4 Free Direct 1.18 ng/dL (0.76-1.46); Thyroid Stim Hormone (TSH) 5.17 uIU/mL (0.358-3.74)
== END | disposition home or self-care (01) ==
PROVIDERS: PCP Family Medicine; Referring Provider Internal Medicine Endocrinology, Diabetes & Metabolism; Visit Provider Internal Medicine Endocrinology, Diabetes & Metabolism
DX: E06.3 Autoimmune thyroiditis (principal)
CPT/HCPCS: 36415; 84439; 84443

== ENCOUNTER → 2023-06-08 | Outpatient (CLI) | payer OTHER, SELFPAY ==
[2023-06-08 10:53] LABS: T4 Free Direct 1.32 ng/dL (0.76-1.46); Thyroid Stim Hormone (TSH) 0.29 uIU/mL (0.358-3.74)
== END | disposition home or self-care (01) ==
LOC: MTLAB 07:38
PROVIDERS: PCP Family Medicine; Referring Provider Internal Medicine Endocrinology, Diabetes & Metabolism; Visit Provider Internal Medicine Endocrinology, Diabetes & Metabolism
DX: E03.8 Other specified hypothyroidism (principal); E06.3 Autoimmune thyroiditis
CPT/HCPCS: 36415; 84439; 84443

== ENCOUNTER → 2023-07-10 | Outpatient (CLI) | payer OTHER, SELFPAY ==
[2023-07-10 12:59] LABS: T4 Free Direct 1.27 ng/dL (0.76-1.46); Thyroid Stim Hormone (TSH) 1.36 uIU/mL (0.358-3.74)
== END | disposition home or self-care (01) ==
LOC: BIMLAB 09:42
PROVIDERS: PCP Family Medicine; Visit Provider Internal Medicine Endocrinology, Diabetes & Metabolism
DX: E03.8 Other specified hypothyroidism (principal); E06.3 Autoimmune thyroiditis
CPT/HCPCS: 36415; 84439; 84443

== ENCOUNTER → 2023-07-25 | Outpatient (CLI) | payer OTHER, SELFPAY ==
[2023-07-25 14:25] LABS: Absolute Lymphocyte Count 2.57 X10^3/uL (0.83-4.51); Absolute Neutrophil Count 6.9 X10^3/uL (2.0-7.7); Basophil# 0.06 X10^3/uL; Basophil% 0.6 % (0-1); Eosinophil# 0.14 X10^3/uL; Eosinophils% 1.4 % (0-5); Hematocrit 40.5 % (37-47); Hemoglobin 13.4 g/dL (12.0-15.0); Lymphocyte # 2.57 X10^3/ul (0.83-4.51); Lymphocyte % 25.1 % (19-41); Mean Corp Hgb Conc 33.1 g/dL (32-36); Mean Corpuscular Hgb 29.6 pg (27.0-32.0); Mean Corpuscular Volume 89.4 fL (81-99); Mean Platelet Vol. 8.9 fl (6.2-12.0); Monocyte# 0.58 X10^3/uL; Monocyte% 5.7 % (0-10); NRBC Flagged by Analyzer 0 % (0-5); Neutrophil # 6.85 X10^3/uL (2.7-7.7); Neutrophil % 66.7 % (47-70); Platelet Count 322 K/mm3 (150-450); RBC Distribution Width CV 12.1 % (11.6-14.6); RBC Distribution Width SD 39.6 fl (35.1-43.9); Red Blood Count 4.53 M/mm3 (4.2-5.4); White Blood Count 10.3 K/mm3 (4.4-11.0)
[2023-07-25 14:51] LABS: Hemoglobin A1c 4.9 % (3.8-5.6)
[2023-07-25 15:29] LABS: HIV - WCH Non-Reactive (Nonreactive); Hepatitis B Surface Antigen Non-Reactive (Nonreactive); Hepatitis C Antibody Non-Reactive (Nonreactive); Rubella IgG Reactive (Nonreactive); Syphilis Antibodies Non-reactive
[2023-07-29 08:07] LABS: Chlamydia By Nucleic Acid AMP Negative (Negative); Gonococcus By Nucleic Acid AMP Negative (Negative)
== END | disposition home or self-care (01) ==
PROVIDERS: PCP Family Medicine; Referring Provider Registered Nurse; Visit Provider Registered Nurse
DX: O99.280 Endocrine, nutritional and metabolic diseases complicating pregnancy, unspecified trimester (principal); E07.9 Disorder of thyroid, unspecified; Z3A.00 Weeks of gestation of pregnancy not specified; Z86.32 Personal history of gestational diabetes
CPT/HCPCS: 36415; 83036; 85025; 86703; 86762; 86780; 86803; 86850; 86900; 86901; 87086; 87340; 87491; 87591

== ENCOUNTER → 2023-09-17 | Outpatient (CLI) | payer OTHER, SELFPAY ==
--- OUTSIDE RECORDS SUMMARY | 2023-09-17 08:54 | XMS RPT_ITS | CCD ---
Author Name Unknown Address [address] [place] [address] Organization [facility] Care Team Providers Care Playground Director Name Role Phone Winter, Salisbury Unavailable Unavailable Winter, Luisito Unavailable Unavailable PROVIDER, UNKNOWN Unavailable Unavailable Winter, Salisbury Devyn Primary Care Provider Winter, Salisbury Devyn Primary Care Provider Winter DO, Salisbury Devyn Primary Care Provid er Winter DO, Salisbury Devyn Primary Care Provid er Winter DO, [place]bury Devyn Primary Care Provid er WINTER, [facility] Primary Care ARMANI Martínez Referring Unavail able [facility] Unavai lable [facility], [facility] Referring Unavai labBERNARDA Hare Attending Unavailable WINTER, [facility] Primary Care Unavai lable WINTER, [facility] Referring Unavai lable WINTER, [facility] Primary Care ARMANI Martínez Admitting Unavail able ARMANI CHAMORRO Attending Unavail able ARMANI CHAMORRO Referring Unavail able [facility] Primary Care Kaitlini ARMANI Gudino Referring Unavail able Allergies Allergy Classification Reported Allergen(s) Allergy Type Date of Onset Reaction(s) Facility (20 sources) Ibuprofen; Translations: [IBUPROFEN] Drug Allergy 11-03-2016 Angioedema, Rash, Swelling [facility] (20 sources) Naproxen; Translations: [NAPROXEN] Drug Allergy 11-03-2016 Angioedema, Swelling, Anaphylaxis [facility] Medications Completed/Discontinued Medications Medication Drug Class(es) Dates Sig (Normalized) Sig (Original) Desogestrel / Ethinyl Estradiol (15 sources) Progestin, Estrogen Start: 05-07-2021 take 1 tablet by mouth once daily ENSKYCE 0.15-0.03 mg per tablet Take 1 tablet by mouth once daily. 0 05/07/2021 Active Problems Active Problems Problem Classification Problem Date Documented Da te Episodic/Chronic Calculus of urinary tract (2 sources) Calculus of ureter; Translations: [Calculus of ureter] Onset: 8 Episodic Complications of surgical procedures or medical care (2 sources) Postoperative hypothyroidism; Translations: [Postprocedural hypothyroidism] Onset: 2 Chronic Esophageal disorders (17 sources) Gastroesophageal reflux disease without esophagitis; Translations: [Gastro-esophageal reflux disease without esophagitis] Onset: 2 Chronic Fracture of lower limb (3 sources) Closed fracture of fifth metatarsal bone; Translations: [Displaced fracture of fifth metatarsal bone, right foot, initial encounter for closed fracture] Episodic Other aftercare (1 source) Surgical follow-up; Translations: [Encounter for follow-up examination after completed treatment for conditions other than malignant neoplasm] Episodic Other connective tissue disease (1 source) Pain in right foot; Translations: [Pain in right foot] Episodic Other gastrointestinal disorders (1 source) H/O: gallstones; Translations: [Personal history of other diseases of the digestive system] Episodic Other injuries and conditions due to external causes (1 source) Fracture of bone; Translations: [Other injury of unspecified body region, initial encounter] Episodic Other liver diseases (3 sources) Lesion of liver; Translations: [Liver disease, unspecified] Chronic Other liver diseases (2 sources) Chronic liver disease; Translations: [Liver disease, unspecified] Chronic Other liver diseases (2 sources) Liver disease, unspecified; Translations: [Chronic liver disease] Onset: 2 Chronic Past or Other Problems Problem Classification Problem Date Documented Da te Episodic/Chronic Abdominal pain (20 sources) Unspecified abdominal pain; Translations: [Right upper quadrant pain] Onset: 07-04-2018 Episodic Biliary tract disease (5 sources) Gallstone; Translations: [Calculus of gallbladder without cholecystitis without obstruction] Onset: 03-09-2022 Episodic Conditions associated with dizziness or vertigo (2 sources) Dizziness; Translations: [Dizziness and giddiness] Onset: 03-22-2022 Episodic Other aftercare (1 source) Encounter for follow-up examination after completed treatment for conditions other than malignant neoplasm; Translations: [Postop check] Onset: 03-22-2022 Episodic Other gastrointestinal disorders (1 source) Personal history of other diseases of the digestive system; Translations: [History of gallstones] Onset: 03-22-2022 Episodic Other nervous system disorders (1 source) Other acute postprocedural pain; Translations: [Postoperative pain] Onset: 03-16-2022 Episodic Residual codes; unclassified (1 source) Acquired absence of other specified parts of digestive tract; Translations: [S/P jocelin] Onset: 03-22-2022 Episodic Results Test Name Value Interpretation Reference Range Facil ity Vital Signs Date Time Vital Sign Value Performing Clinician William alas 03-22-2022 12:57-0400 Body height 167.6 cm Bernarda De La Torre APRN.DRAFTING LAYOUT WORKER Work Phone: [facility] 03-22-2022 12:57-0400 Body weight 73.94 kg Bernarda De La Torre APRN.DRAFTING LAYOUT WORKER Work Phone: [facility] 03-22-2022 12:57-0400 Diastolic blood pressure 71 mm[Hg] Bernarda De La Torre APRN.DRAFTING LAYOUT WORKER Work Phone: [facility] 03-22-2022 12:57-0400 Heart rate 92 /min Bernarda De La Torre APRN.DRAFTING LAYOUT WORKER Work Phone: [facility] 03-22-2022 12:57-0400 SaO2% (BldA) [Mass fraction] 99 % Bernarda De La Torre APRN.DRAFTING LAYOUT WORKER Work Phone: [facility] 03-22-2022 12:57-0400 Systolic blood pressure 104 mm[Hg] Bernarda De La Torre APRN.DRAFTING LAYOUT WORKER Work Phone: [facility] 03-09-2022 10:06-0400 Body height 167.[address] [facility] 03-09-2022 10:06-0400 Body temperature 98.2 [degF] Pst 1 [facility] 03-09-2022 10:06-0400 Body weight 74.[address] [facility] 03-09-2022 10:06-0400 Diastolic blood pressure 78 mm[Hg] Pst [address] [facility] 03-09-2022 10:06-0400 Heart rate 90 /min Pst [address] [facility] 03-09-2022 10:06-0400 Respiratory rate 18 /min Pst 1 [facility] 03-09-2022 10:06-0400 SaO2% (BldA) [Mass fraction] 100 % Pst [address] [facility] 03-09-2022 10:06-0400 Systolic blood pressure 117 mm[Hg] Pst [address] [facility] 01-09-2022 14:13-0400 Body height 167.6 cm Armani Chamorro MD Work Phone: [facility] 01-09-2022 14:13-0400 Body weight 77.11 kg Armani Chamorro MD Work Phone: [facility] 01-09-2022 14:13-0400 Diastolic blood pressure 67 mm[Hg] Armani Chamorro MD Work Phone: [facility] 01-09-2022 14:13-0400 Heart rate 74 /min Armani Chamorro MD Work Phone: [facility] 01-09-2022 14:13-0400 Respiratory rate 20 /min Armani Chamorro MD Work Phone: [facility] 01-09-2022 14:13-0400 Systolic blood pressure 113 mm[Hg] Armani Chamorro MD Work Phone: [facility] 12-14-2021 10:43-0400 Body height 167.6 cm Luisito Winter DO Work Phone: [facility] 12-14-2021 10:43-0400 Body temperature 97.7 [degF] Salisbury Winter DO Work Phone: [facility] 12-14-2021 10:43-0400 Body weight 77.56 kg Salisbury Winter DO Work Phone: [facility] 12-14-2021 10:43-0400 Diastolic blood pressure 78 mm[Hg] Salisbury Winter DO Work Phone: [facility] 12-14-2021 10:43-0400 Heart rate 97 /min Luisito Winter DO Work Phone: [facility] 12-14-2021 10:43-0400 SaO2% (BldA) [Mass fraction] 98 % Salisbury Winter DO Work Phone: [facility] 12-14-2021 10:43-0400 Systolic blood pressure 102 mm[Hg] Salisbury Winter DO Work Phone: [facility] 07-06-2021 13:40-0500 Body height 167.6 cm Roxie Figas DPM Work Phone: [facility] 07-06-2021 13:40-0500 Body weight 78.47 kg Roxie Figas DPM Work Phone: [facility] 07-06-2021 13:40-0500 Respiratory rate 17 /min Roxie Figas DPM Work Phone: [facility] 06-10-2021 14:00-0400 Body height 167.6 cm Roxie Figas DPM Work Phone: [facility] 06-10-2021 14:00-0400 Body weight 78.47 kg Roxie Figas DPM Work Phone: [facility] 06-10-2021 14:00-0400 Respiratory rate 20 /min Roxie Figas DPM Work Phone: [facility] 05-20-2021 13:32-0400 Body height 167.6 cm Roxie Figas DPM Work Phone: [facility] 05-20-2021 13:32-0400 Body weight 78.47 kg Roxie Figas DPM Work Phone: [facility] 05-20-2021 13:32-0400 Respiratory rate 16 /min Roxie Figas DPM Work Phone: [facility] Encounters Encounter Date Encounter Type Care Provider Facility Start: 03-02-2023 Telephone encounter Luisito Yanet Shoemaker DO [facility] [place] Procedures Date Procedure Procedure Detail Performing Clinician Start: 12-19-2021 Us abdominal real ti me w/image limited Salisbury Devyn Shoemaker DO Work Phone: Start: 07-06-2021 Radex foot complete minimum 3 views Roxie Figas DPM Work Phone: Start: 06-10-2021 Radex foot complete minimum 3 views Roxie Figas DPM Work Phone: Start: 05-20-2021 Radex foot complete minimum 3 views Roxie Figas DPM Work Phone: Start: 05-16-2021 Radex foot complete minimum 3 views Salisbury Devyn Shoemaker DO Work Phone: Start: 05-16-2021 Adult depression scr eening assessment [facility] Start: 12-27-2020 EXTERNAL IMAGING Curriculum Writer al Provider Start: 12-27-2020 EXTERNAL LAB External P rovider Start: 12-02-2020 EXTERNAL LAB External P rovider Start: 11-19-2020 EXTERNAL IMAGING Curriculum Writer al Provider History of cholecystectomy S/P jocelin C kurtis De La Torre APRN.DRAFTING LAYOUT WORKER Work Phone: Plan of Treatment Date Care Activity Detail Author Start: 04-27-2023 Influenza vaccination INFLUENZA (#1) [facility] Start: 08-27-2022 DEPRESSION ASSESSMENT DEPRESSION ASSESSMENT [facility] Start: 05-16-2022 Adult depression screening assessment DEPRESSION SCREENING [facility] Start: 04-27-[address] [facility] Start: 02-28-2022 End: 04-30-2022 Alanine aminotransferase [Enzymatic activity/volume] in Serum or Plasma ALT/SGPT Lab Routine Calculus of gallbladder with chronic cholecystitis without obstruction Liver lesion Expected: 02/28/2022, Expires: 04/30/2022 [facility] Work Phone: Payers Date Payer Category Payer Unknown 2021 Unknown [employer] P[employer] [id number] 2021-Present [phone] [address] [facility] [place] [address] PPO [id number] 2021 Unknown [id number] 2009 Unknown [id number] 1995 Unknown [id number] Social History Date Type Detail Facility Tobacco smoking status NDIS Unknown if ev er smoked [facility] Start: 1995 Sex Assigned At Not on file [facility] Start: 05-13-2021 Tobacco smoking status NDIS Unknown if ever smoked [facility] Start: 05-16-2021 End: 06-10-2021 Tobacco smoking status NHIS Never smoker [facility] Start: 05-16-2021 End: 06-10-2021 Tobacco use and exposure Never used [facility] Start: 05-16-2021 End: 03-22-2022 Alcohol intake Current drinker of alcohol (finding) [facility] Start: 05-16-2021 [facility] Start: 12-09-2021 End: 03-22-2022 Exposure to SARS-CoV-2 (event) Not sure [facility] Start: 03-22-2022 End: 09-19-2022 [facility] Start: 03-22-2022 End: 09-19-[address] [facility] Adult Depression Scr eening Assessment 0 [facility] Clinical Notes 05-16-2021 to 03-02-2023 Telephone Encounter - Nicole Campos LPN - 03/02/2023 11:39 AM EDTTelephone Encounter - Nicole Campos LPN - 03/02/2023 11:39 AM RT Aleah(R) - 06/02/2022 9:00 AM EDT Note Date & Type Note Facility 03-02-2023 Miscellaneous Notes Called patient who advised she sees her Inspector [employer] Mirror, Dr. Krunal Jay for her thyroid ----- Message from Luisito Shoemaker DO sent at 03/02/2023 11:20 AM EDT ----- Somebody else managing thyroid. Correct? documented in this encounter [facility] 06-02-2022 Note HNO ID: [id number] Author: Gillian Coronel RT(R) Service: Radiology Author Type: Technologist Type: Progress Notes Filed: 06/02/2022 9:02 AM Note Text: Radiology Service Progress Note DATE OF SERVICE: June 02, 2022 TIME: 9:01 AM PATIENT IDENTITY VERIFICATION COMPLETED USING TWO (2) STANDARD IDENTIFIERS: Name and Date of confirmed by patient verbally. FALL SCREENING: Has the patient had 2 falls in the last year or 1 fall with injury or currently using an Ambulatory Assistive Device (Walker, Cane, Wheelchair, Crutches, etc.)? No PATIENT GENDER DATA: Female. status: : No status: NO. PATIENT RELEVANT IMPLANT DATA REVIEWED: Not Applicable ALLERGIES: Reviewed and unchanged CONTRAST ALLERGY: NO. EXAM: MRI - CONTRAST TYPE: GROUP II PERIPHERAL IV DATA: Ambulatory: A peripheral IV was started in the Left antecubital site with a Angio cath: 22 gauge. RADIOLOGY DEPARTMENT: MR; Exam(s) Completed: Body: Liver (routine) SIGNATURE: Rich Corrigan RT(R) PATIENT NAME: Esther Silver DATE: June 02, 2022 TIME: 9:01 AM [facility] 06-02-2022 History of Present illness Narrative Radiology Service Progress Note DATE OF SERVICE: June 02, 2022 TIME: 9:01 AM PATIENT IDENTITY VERIFICATION COMPLETED USING TWO (2) STANDARD IDENTIFIERS: Name and Date of confirmed by patient verbally. FALL SCREENING: Has the patient had 2 falls in the last year or 1 fall with injury or currently using an Ambulatory Assistive Device (Walker, Cane, Wheelchair, Crutches, etc.)? No PATIENT GENDER DATA: Female. status: : No status: NO. PATIENT RELEVANT IMPLANT DATA REVIEWED: Not Applicable ALLERGIES: Reviewed and unchanged CONTRAST ALLERGY: NO. EXAM: MRI - CONTRAST TYPE: GROUP II PERIPHERAL IV DATA: Ambulatory: A peripheral IV was started in the Left antecubital site with a Angio cath: 22 gauge. RADIOLOGY DEPARTMENT: MR; Exam(s) Completed: Body: Liver (routine) SIGNATURE: Rich Corrigan RT(R) PATIENT NAME: Esther Silver DATE: June 02, 2022 TIME: 9:01 AM documented in this encounter [facility] 05-22-2022 Miscellaneous Notes Pt requesting a refill of Levothyroxine 150mcg 1 daily. Please send to [facility] Hendricks documented in this encounter [facility] 03-22-2022 Note HNO ID: [id number] Author: Bernarda De La Torre APRN.DRAFTING LAYOUT WORKER Service: ? Author Type: Nurse Practitioner Type: Progress Notes Filed: 03/22/2022 1:36 PM Note Text: Esther Silver is a 26 year old female who is here for postoperative visit following Lap Jocelin performed on 03/16/[address] Chamorro. Patient reports that she is still having some soreness and pulling at the umbilical incision site, mostly with movement. She is still taking Tylenol PRN for pain which is helping. Does report headaches and occasional dizziness, but feels she is not drinking as much fluid as she should. Reports normal BMs, no hematuria. Denies and N/V, fevers, chills, drainage, redness, swelling, or calf pain. 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 did well with thyroidectomy and wisdom teeth surgeries PAST SURGICAL HISTORY Procedure Laterality Date - ADENOIDECTOMY PRIMARY - EXTRACTION, ERUPTED TOOTH OR EXPOSED ROOT (ELEVATION AND/OR FORCEPS REMOVAL) wisdom teeth - THYROID 2010 thyroidectomy - TONSILLECTOMY HX 2002 Tobacco Use: Low Risk ? ? Smoking Tobacco Use: Never Smoker ? ? Smokeless Tobacco Use: Never Used Alcohol Use: Not on file Drug Use: Never ALLERGIES Allergen Reactions - Ibuprofen Rash, Angioedema, Swelling Other reaction(s): Anaphylaxis, mouth tingles and tounge swells, Swelling, tongue swelling, facial itching Aleve and advil Other reaction(s): mouth tingles and tounge swells - Naproxen Angioedema, Swelling, Anaphylaxis Current Outpatient Medications Medication Sig - oxyCODONE IR (ROXICODONE) 5 mg immediate release tablet Take 1 tablet by mouth every 6 hours as needed for pain. - levothyroxine (SYNTHROID) 150 mcg tablet Take 150 mcg by mouth once daily. No current facility-administered medications for this visit. PATHOLOGY REPORT: FINAL DIAGNOSIS A. Gallbladder, cholecystectomy: - Cholelithiasis, chronic cholecystitis, and cholesterolosis. OPERATIVE NOTE: Patient is a 26-year-old female with chronic cholecystitis and cholelithiasis which is fairly symptomatic. We recommend proceeding with a laparoscopic cholecystectomy. The procedure was reviewed in detail including the risks, benefits and complications inherent to the procedure. These include, but are not limited to, bleeding, infection, other organ injury, bile leak, bile duct injury necessitating further surgery. The patient understood and was agreeable to proceed. Patient brought to the operating room after adequate general anesthesia is obtained abdomen prepped and draped in sterile fashion. All port sites were injected with 0.5% Marcaine with epinephrine. Infraumbilical incision made carried down through subcutaneous tissue to the fascia. The fascia was incised and elevated peritoneum was incised and peritoneal cavity entered in direct visualization. Blunt tipped port was placed the abdomen was then insufflated with carbon oxide to pressure approximately 15. Next the epigastric and 2 lateral ports were placed under direct utilization. Gallbladder was grasped and elevated. A critical view of safety was dissected free and identified our cystic duct. In clearing out the tissue we had gone through our cystic artery was identified it and placed a clip on it as well. Our cystic duct was clipped and divided. Gallbladder was then taken off liver bed using cautery. It was then placed in Endopouch. Right upper quadrant was inspected and was hemostatic. It was irrigated and aspirated dry. Ports were then removed under direct visualization. Gallbladder was removed as well. Fascia at umbilicus was reapproximated with 0 Vicryl suture. The remainder the 0.5% Marcaine with epinephrine was injected. Skin is then reapproximated 4 Monocryl in a subcuticular fashion. She tolerated procedure well, was extubated and transferred to the recovery in stable condition. REVIEW OF SYSTEMS: Review of Systems Constitutional: Negative for chills and fever. HENT: Negative for trouble swallowing. Headaches, dizziness Respiratory: Negative for cough and shortness of breath. Cardiovascular: Negative for chest pain and palpitations. Gastrointestinal: Negative for blood in stool and diarrhea. Genitourinary: Negative for hematuria. Musculoskeletal: Negative for gait problem. Skin: Negative for rash and wound (surgical incision ). Neurological: Positive for dizziness and headaches. Negative for seizures and syncope. Psychiatric/Behavioral: Negative for confusion. The patient is not nervous/anxious. PHYSICAL EXAM: BP 104/71 Pulse 92 Ht 5' 6 (1.68m) Wt 163 lb (73.9kg) SpO2 99% LMP 03/09/2022 BMI 26.32 kg/(m2). Physical Exam Vitals and nursing note reviewed. Eyes: Pupils: Pupils are equal, round, and reactive (more content not included)... [facility] 03-22-2022 History of Present illness Narrative Images from the original note were not included. Esther Silver is a 26 year old female who is here for postoperative visit following Lap Jocelin performed on 03/16/[address] Chamorro. Patient reports that she is still having some soreness and pulling at the umbilical incision site, mostly with movement. She is still taking Tylenol PRN for pain which is helping. Does report headaches and occasional dizziness, but feels she is not drinking as much fluid as she should. Reports normal BMs, no hematuria. Denies and N/V, fevers, chills, drainage, redness, swelling, or calf pain. 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 did well with thyroidectomy and wisdom teeth surgeries PAST SURGICAL HISTORY Procedure Laterality Date ADENOIDECTOMY PRIMARY <AGE 12 EXTRACTION, ERUPTED TOOTH OR EXPOSED ROOT (ELEVATION AND/OR FORCEPS REMOVAL) wisdom teeth THYROID 2010 thyroidectomy TONSILLECTOMY HX 2002 Tobacco Use: Low Risk Smoking Tobacco Use: Never Smoker Smokeless Tobacco Use: Never Used Alcohol Use: Not on file Drug Use: Never ALLERGIES Allergen Reactions Ibuprofen Rash, Angioedema, Swelling Other reaction(s): Anaphylaxis, mouth tingles and tounge swells, Swelling, tongue swelling, facial itching Aleve and advil Other reaction(s): mouth tingles and tounge swells Naproxen Angioedema, Swelling, Anaphylaxis Current Outpatient Medications Medication Sig oxyCODONE IR (ROXICODONE) 5 mg immediate release tablet Take 1 tablet by mouth every 6 hours as needed for pain. levothyroxine (SYNTHROID) 150 mcg tablet Take 150 mcg by mouth once daily. No current facility-administered medications for this visit. PATHOLOGY REPORT: FINAL DIAGNOSIS A. Gallbladder, cholecystectomy: - Cholelithiasis, chronic cholecystitis, and cholesterolosis. OPERATIVE NOTE: Patient is a 26-year-old female with chronic cholecystitis and cholelithiasis which is fairly symptomatic. We recommend proceeding with a laparoscopic cholecystectomy. The procedure was reviewed in detail including the risks, benefits and complications inherent to the procedure. These include, but are not limited to, bleeding, infection, other organ injury, bile leak, bile duct injury necessitating further surgery. The patient understood and was agreeable to proceed. Patient brought to the operating room after adequate general anesthesia is obtained abdomen prepped and draped in sterile fashion. All port sites were injected with 0.5% Marcaine with epinephrine. Infraumbilical incision made carried down through subcutaneous tissue to the fascia. The fascia was incised and elevated peritoneum was incised and peritoneal cavity entered in direct visualization. Blunt tipped port was placed the abdomen was then insufflated with carbon oxide to pressure approximately 15. Next the epigastric and 2 lateral ports were placed under direct utilization. Gallbladder was grasped and elevated. A critical view of safety was dissected free and identified our cystic duct. In clearing out the tissue we had gone through our cystic artery was identified it and placed a clip on it as well. Our cystic duct was clipped and divided. Gallbladder was then taken off liver bed using cautery. It was then placed in Endopouch. Right upper quadrant was inspected and was hemostatic. It was irrigated and aspirated dry. Ports were then removed under direct visualization. Gallbladder was removed as well. Fascia at umbilicus was reapproximated with 0 Vicryl suture. The remainder the 0.5% Marcaine with epinephrine was injected. Skin is then reapproximated 4 Monocryl in a subcuticular fashion. She tolerated procedure well, was extubated and transferred to the recovery in stable condition. REVIEW OF SYSTEMS: Review of Systems Constitutional: Negative for chills and fever. HENT: Negative for trouble swallowing. Headaches, dizziness Respiratory: Negative for cough and shortness of breath. Cardiovascular: Negative for chest pain and palpitations. Gastrointestinal: Negative for blood in stool and diarrhea. Genitourinary: Negative for hematuria. Musculoskeletal: Negative for gait problem. Skin: Negative for rash and wound (surgical incision ). Neurological: Positive for dizziness and headaches. Negative for seizures and syncope. Psychiatric/Behavioral: Negative for confusion. The patient is not nervous/anxious. PHYSICAL EXAM: BP 104/71 Pulse 92 Ht 5' 6 (1.68m) Wt 163 lb (73.9kg) SpO2 99% LMP 03/09/2022 BMI 26.32 kg/(m^2). Physical Exam Vitals and nursing note reviewed. Eyes: Pupils: Pupils are equal, round, and reactive to light. Cardiovascular: Rate and Rhythm: Normal rate and regular rhythm. Pulses: Normal pulses. Heart sounds: Normal heart sounds. Pulmonary: Effort: Pulmonary effort is normal. Breath sounds: Normal breath sounds. Abdominal: General: Bowel sounds are normal. Musculoskeletal: Right lower leg: No edema. Left lower leg: No edema. Skin: Findings: No erythema or lesion. Comments: Four Lap surgical sites noted on ABD, all approximated with surgical glue intact. Small amount of ecchymosis noted. No induration, redness, edema, or drainage noted. Neurological: Mental Status: She is alert and oriented to person, place, and time. Assessment: Postop check (primary encounter diagnosis) History of gallstones S/p jocelin Dizziness Plan: Esther Silver is a 26 year old female who underwent a Lap Jocelin on 03/16/[address] Chamorro. Patient reports she is still having some ABD soreness, takes Tylenol which helps. Is having headaches and some dizziness, denies any syncope, CP, SOB. Denies any N/V, constipation, fevers, chills, or drainage. Upon assessment, four Lap surgical sites noted on ABD, all approximated with surgical glue intact. Small amount of ecchymosis noted. No induration, redness, edema, or drainage noted. ASSESSMENT/PLAN: 1. Postop check - ICD9: V67.00, ICD10: Z09 (primary diagnosis) -restrict lifting to less than ten pounds until 04/17/22, work excuse given -F/u PRN 2. History of gallstones - ICD9: V12.79, ICD10: Z87.19 3. S/P jocelin - ICD9: V45.79, ICD10: Z90.49 -Keep active with walking, rest when needed 4. Dizziness - ICD9: 780.4, ICD10: R42 -be sure to drink plenty of fluids, eight 8oz of water a day Bernarda De La Torre APRN.ANA I spent a total of 15 minutes on the date of the service which included preparing to see the patient, [id number] patient care, completing clinical documentation, obtaining and/or reviewing separately obtained history, performing a medically appropriate examination and communicating with other HCPs (not separately reported). documented in this encounter [facility] 03-22-2022 Instructions Bernarda De La Torre APRN.ANA - 03/22/2022 1:00 PM EDT SIGNS OF INFECTION: 1. Contact the office if you see any drainage from the wound that is yellow, green or has an odor, or is bleeding through dressings. [place] tinged or yellow CLEAR fluid can be a normal part of healing. A virtual visit can be arranged. 2. If your wound is becoming red, painful, swollen along the wound edges, or has drainage, contact the office for further advice. 3. If you have a fever greater than 100.5, chills, nausea and vomiting, cannot eat, or your urine is becoming very dark, contact the office for additional advice. 4. If you have a drastic change in bowel function with constipation which is now causing severe abdominal pain, nausea and vomiting, and bloating, contact the office for additional advice. You may be asked to go to the ER for further evaluation. 5. If you have frequent diarrhea that is not expected, the stool has a foul odor, has considerable mucous or blood, and you are having many watery loose stools per day with abdominal bloating or pain, contact the office for further advice. You may be asked to go to the ER for further evaluation. 6. documented in this encounter [facility] 03-16-2022 Note HNO ID: [id number] Author: Janine Anton RN Service: ? Author Type: Registered Nurse Type: Nursing Progress Note Filed: 03/16/2022 4:47 PM Note Text: Pt given IS and instructed on use, able to return demonstrate proper technique. [facility] 03-16-2022 Note HNO ID: [id number] Author: Jose Mcknight APRN.CRNA Service: Anesthesiology Author Type: Nurse Rim Turning Machine Operator Type: Anesthesia Procedure Notes Filed: 03/16/2022 1:48 PM Note Text: ANESTHESIOLOGY PROCEDURE NOTE Gastric Tube General Information Procedure Start Time/Medication Administration: 03/16/2022 1:25 PM Patient location during procedure: OR Timeout Performed Pre-procedure: timeout performed Consent Obtained: Yes Patient identity confirmed: arm band and patient sedated or unresponsive Indication: gastric decompression Staffing SENIOR BEHAVIORAL SCIENTIST: Jose Mcknight APRN.SENIOR BEHAVIORAL SCIENTIST Performed by: JUDY Procedure Details Type: Orogastric tube Cortrak monitor used: Yes Size: 18 Fr cm Distance Advanced: 50 cm Initial Auscultation Appears Confirmatory: Yes Securement: taped to the cheek Successful Placement: yes Post-Procedure Details Patient tolerated the procedure well with no immediate complications SIGNATURE: Jose Mcknight APRN.CRNA PATIENT NAME: Esther Silver DATE: March 16, 2022 TIME: 1:47 PM CSN: [id number] [facility] 03-16-2022 Note HNO ID: [id number] Author: Jose Mcknight APRN.SENIOR BEHAVIORAL SCIENTIST Service: Anesthesiology Author Type: Nurse Rim Turning Machine Operator Type: Anesthesia Procedure Notes Filed: 03/16/2022 1:39 PM Note Text: ANESTHESIOLOGY PROCEDURE NOTE Airway General Information Procedure Start Time/Medication Administration: 03/16/2022 1:24 PM Patient location during procedure: OR Timeout Performed Pre-procedure: timeout performed Consent Obtained: Yes Patient identity confirmed: arm band Staffing Anesthesiologist: Coy Aguilar MD SENIOR BEHAVIORAL SCIENTIST: Jose Mcknight APRN.SENIOR BEHAVIORAL SCIENTIST Performed by: JUDY Indications and Patient Condition Preoxygenated: yes Patient position: sniffing Manual In-Line Stabilization: No Difficult Mask: No Indications for airway management: anesthesia anesthesia circuit Method: asleep Cricoid Pressure: No Final Airway Details Final airway type: endotracheal airway Final Endotracheal Airway: ETT Cuffed: yes Successful intubation technique: direct laryngoscopy Endotracheal tube insertion site: oral Blade: Jacquelyn Blade size: #3 ETT size (mm): 7.0 Measurement (cm): 21 Cormack-Lehane Classification: grade IIa - partial view of glottis Number of attempts at approach: 1 Failed airway: no Unrecognized esophageal intubation: no Airway not difficult SIGNATURE: Jose Mcknight APRN.SENIOR BEHAVIORAL SCIENTIST PATIENT NAME: Esther Silver DATE: March 16, 2022 TIME: 1:38 PM CSN: [id number] [facility] 03-09-2022 History and physical note HISTORY AND PHYSICAL EXAMINATION SERVICE DATE: 03/06/2022 SERVICE TIME: 10:18 AM PRIMARY CARE PHYSICIAN: Luisito Shoemaker DO REASON FOR VISIT: Esther Silver is a 26 year old female who is scheduled for Procedure(s): LAPAROSCOPIC CHOLECYSTECTOMY WITH GRAMS (N/A) at the request of Dr. Armani Chamorro MD for routine H&P. My final recommendation will be communicated back to the requesting physician by way of shared medical record or letter. Subjective The patient has the following: COVID-19 Immunization Status Overdue - COVID-19 VACCINE (1) Overdue - never done No completion, postpone, frequency change, or communication history exists for this topic. CHIEF COMPLAINT: I am here to have my gallbaldder out HPI: 26 year old female presents to [facility] in preparation for a laparoscopic cholecystectomy with grams. The patient reports a history of intermittent episodes of right upper abdominal discomfort and pain, especially after eating fatty foods. States she noticed heartburn pain and back pain at the end of 2020 and thought it was her mattress. She had a gallbladder attack in November 2021 and went to the ED and was told it was likely GERD and started on omeprazole. The medication did not help so she was told to stop taking omeprazole. She has undergone an ultrasound which is positive for cholelithiasis and a liver lesion. She had an MRI to further evaluate the liver lesion and was told they look benign. She denies pain today. Upper abdominal pain usually occurs after eating. She avoids foods like pizza. She has discussed surgical options with Dr. Domingo and has agreed to proceed. REVIEW OF SYSTEMS: General: Negative for: unintentional weight change, malaise and fever. Neurological: Negative for: dementia, headaches, multiple sclerosis, Parkinson's disease, seizures and strokes. Respiratory: Negative for: asthma, COPD, current cough, dyspnea, pneumonia within 6 weeks and obstructive sleep apnea. Cardiovascular: No history of HTN requiring medication, no history of angina, CHF, HI, cardiac surgery or stents. Denies rest pain, gangrene or revascularization/amputation for PVD. No history of cardiovascular symptoms or problems. Negative for: anticoagulation therapy, arrhythmia, CAD, chest pain, CHF, DVT/PE, hyperlipidemia, hypertension and murmur/valvular heart disease. GI: See HPI Negative for: GERD. : Negative for: dysuria, frequent urination, hematuria and urinary incontinence. PRENATAL TEACHER: Negative for abnormal vaginal bleeding, abnormal vaginal discharge. Endocrine: Positive hx of gestational diabetes Positive for: hypothyroidism. Hematology: Negative for: anemia, factor V Leiden, thrombocytopenia, von Willebrand disease and chronic anti-coagulation/platelet meds. Oncology: No history of CA metastasis, chemo within 30 days, or radiotherapy within 90 days. No history of oncological symptoms or problems. Psych: Negative for: anxiety and depression. Musculoskeletal: Negative for: back pain, joint pain and rheumatoid arthritis. Skin: Negative for: itching and rash. 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 did well with thyroidectomy and wisdom teeth surgeries PAST SURGICAL HISTORY Procedure Laterality Date ADENOIDECTOMY PRIMARY <AGE 12 EXTRACTION, ERUPTED TOOTH OR EXPOSED ROOT (ELEVATION AND/OR FORCEPS REMOVAL) wisdom teeth THYROID 2010 thyroidectomy TONSILLECTOMY HX 2002 FAMILY HISTORY Problem Relation Age of Onset Hypothyroidism Mother Arthritis Father No Known Problems Sister No Known Problems Brother Diabetes Maternal Grandmother Hypertension Maternal Grandmother Heart disease Maternal Grandmother Diabetes Paternal Grandmother Blood Clots Paternal Grandfather Hypertension Paternal Grandfather Social History Tobacco Use Smoking status: Never Smoker Smokeless tobacco: Never Used Vaping Use Vaping Use: Never used Substance Use Topics Alcohol use: Yes Comment: social Drug use: Never Prior to Admission medications as of 03/09/22 1005 Medication Sig Last Dose Taking levothyroxine (SYNTHROID) 150 mcg tablet Take 150 mcg by mouth once daily. Taking Yes No medication comments found. ALLERGIES Allergen Reactions Ibuprofen Rash, Angioedema, Swelling Other reaction(s): Anaphylaxis, mouth tingles and tounge swells, Swelling, tongue swelling, facial itching Aleve and advil Other reaction(s): mouth tingles and tounge swells Naproxen Angioedema, Swelling, Anaphylaxis Objective PHYSICAL EXAM: General: alert and oriented and healthy appearance. Pertinent negatives noted - not distressed. Skin: normal color, no rash or lesions. HEENT: EOM intact and pupils equal round. Pertinent negatives noted - no carotid bruit. Neck supple with FROM; no masses or tenderness; Pharynx clear. Cardiovascular: regular rate and rhythm, normal S1 and S2, no rub, murmurs, or gallop. Respiratory: normal breath sounds, no wheezes or crackles. Abdomen: bowel sounds present and soft. Pertinent negatives noted - not tender. Extremities: no deformity, no edema or tenderness, no joint swelling or clubbing. Neurological: normal cognition and motor skills. Gait normal. No weakness or sensory deficit. PAIN ASSESSMENT: VITALS: BP 117/78 Pulse 90 Temp 98.2 Resp 18 Ht 5' 6 (1.68m) Wt 165 lb (74.8kg) SpO2 100% LMP 03/09/2022 BMI 26.64 kg/(m^2). Diagnostic tests reviewed for today's visit: Lab Value Units Date High Low HB No results within date range. HCT No results within date range. WBC No results within date range. PLT No results within date range. NA No results within date range. K No results within date range. GLUC No results within date range. BUN No results within date range. CREAT No results within date range. PTSEC No results within date range. INR No results within date range. APTT No results within date range. ALT No results within date range. AST No results within date range. TBILI No results within date range. TSH No results within date range. Lab Value Units Date High Low HCGQT No results within date range. UHCG No results within date range. HCG, BODY* No results within date range. Lab Value Units Date High Low ABORHD No results within date range. ABSCREEN No results within date range. Hemoglobin A1C (%) Date Value 05/16/2021 5.2 Assessment Quinn Activity Status Index: METS: Climb a flight of stairs or walk up a hill (5.50 METs) DASI Score: 5.5 Patient denies any chest pain or undue shortness of breath with the above physical activity. [id number] Score:[id number] Score: 0 ARISCAT Score: Age: <=50 Preoperative SpO2: >=96% Respiratory infection in the last month: No Preoperative anemia: No Surgical incision: upper abdominal Duration of surgery: 2-3 hrs Emergency procedure: No ARISCAT Score: 31 ANESTHESIA FINDINGS: Intubation History: No history of difficult intubation. No abnormal airway history Significant Anesthesia Considerations: potential postop nausea/vomiting Airway History: No history of difficult airway No abnormal airway history I - PHYSICAL EVALUATION DENTAL Normal dental observations. Dental findings: teeth intact. II - ANESTHESIA PLAN Anesthetic Plan: general Prepared for Surgery: . No consults pending CONSULTS: Planned Anesthetic: general Implantable Devices: None CONSULTS: Patient does not require consults for optimization at this time. The Following Tests/Procedures Have Been Initiated: Alk phos, bilirubin, AST. ALT, and CBC ordered by surgeon; needs hcg DOS Patient has the following medical conditions: Hypothyroidism - postoperative, takes levothyroxine Assessment/Plan PLAN Planned Procedure: Procedure(s): LAPAROSCOPIC CHOLECYSTECTOMY WITH GRAMS (N/A) Instructions Given to Patient: Instructions located in the after visit summary. Patient given verbal and written preop instructions and voices comprehension and compliance. HIBICLENS WASH AND INSTRUCTIONS GIVEN TO PATIENT. SIGNATURE: Margarette Bender PA-C PATIENT NAME: Esther Silver DATE: March 06, 2022 TIME: 3:38 PM PAGER/CONTACT #: documented in this encounter [facility] 03-09-2022 Instructions Yolie Stovall APRN.CNP - 03/09/2022 10:00 AM EDT PATIENT PREOPERATIVE INSTRUCTIONS * has scheduled you for your procedure at this surgery center: [facility]: [phone], [address] [address] Please enter through the main entrance and proceed to the blue elevators. The surgery [facility] [facility] is located to the left of the blue elevators. Please read below carefully for your personalized instructions. Arrival Time for Surgery: DATE: 03/16/22 OR TIME: 12:20 pm CHECK IN TIME: 10:20 am Please be aware that emergency situations arise, which may delay or change your surgical time. If this happens, we will notify you as soon as possible and regret any inconvenience. Dietary Restrictions: - Nothing to eat or drink after midnight except for a sip of water with approved medications. Do not eat or drink anything, including water and coffee, on the morning of your surgery. This is important because if you do, your surgery may have to be cancelled Blood Thinning Medications: - Stop NSAIDS (Ibuprofen, Advil, Aleve, Motrin, Celebrex, Mobic, etc.) 7 days before surgery, as directed by your surgeon. IF YOU TAKE ANY OF THE FOLLOWING BLOOD THINNERS, PLEASE CONTACT YOUR SURGEON AND THE PHYSICIAN WHO PRESCRIBES IT FOR YOU IN ORDER TO GET PERIOPERATIVE INSTRUCTIONS SOON POSSIBLE. BLOOD THINNERS: Aspirin , Coumadin, Plavix, Eliquis, Pradaxa, Xarelto, Lovenox, Brilinta, Effient, Savaysa, Arixtra, etc - Stop Vitamin E, fish oil, multivitamins, Marijuana, CBD oil and other over the counter herbals and dietary supplements 7 days before surgery. ?-This would not apply to cancer patients who are prescribed Marinol or any other prescription form on marijuana or CBD. Medications: Approved medications to take the morning of surgery with a sip of water: BP, Heart, thyroid, psych, seizure, and pain medications excluding NSAIDS. Use inhalers as prescribed. Please bring inhalers. Please follow up with the provider that manages your diabetes and how to prepare you for surgery. If you are taking the following medications for Type 2 diabetes: Canagliflozin (INVOKANA), dapagliflozin (FARXIGA), and empagliflozin (JARDIANCE) should each be discontinued at least 3 days before scheduled surgery. Ertugliflozin (STEGLATRO) should be discontinued at least four days before scheduled surgery. - If you have a stimulator, implant or pump that requires a remote please bring the remote with you day of surgery. Pain Medications: - Please continue your current pain medications. Medications to be taken with small amount of fluid on the morning of surgery: levothyroxine If you start any new medications after today's visit, please contact the surgeon's office. Important Reminders: - If you use CPAP/BIPAP, bring the machine with you to the surgery center. - If you are prescribed inhalers for breathing, continue using them AND bring them to the surgery center. - Candy, mints, gum and tobacco products are NOT permitted the morning of surgery. - Hearing aids, dentures and glasses may be worn the morning of surgery. - NO jewelry, body piercings, makeup, hairpins or contacts are to be worn the day of surgery. -Oral hygiene and a shower or bath is required the evening before or the morning of surgery. Use the Hibiclens body wash supplied to you along with the instruction. - NO lotion, creams, powders or deodorants on the skin the day of surgery -Wear loose, comfortable clothing that will accommodate bandages. -Your length of stay will be determined by your surgeon - You will need to have someone else (Family or friend) drive you home once discharged from the hospital. You are not allowed to drive yourself home after surgery. - YOU MUST HAVE A RESPONSIBLE FOLDER TAPER OPERATOR TAKE YOU HOME. A GEOTECHNICAL LABORATORY TECHNICIAN, CAB OR UBER FOLDER TAPER OPERATOR CANNOT BE MADE A RESPONSIBLE FOLDER TAPER OPERATOR. - We recommend that a responsible person stays with you overnight to take care of you. - You cannot stay in a hotel alone after outpatient surgery. You will not be permitted to have your surgery, if you do not have someone to take care of you. Given COVID 19 pandemic, one visitor is allowed to be in the hospital. Visitors will be required to have their temperature taken on arrival at the main entrance of the building. Visitors will be asked to wear a mask that covers their mouth and nose at all times. No visitors are permitted in the recovery room. Post surgery, the surgeon will call the visitor for the update The visitor will be called by the PACU staff for discharge instructgions and will then be instructed for pick and shovel man directions. *Call your surgeon's office if covid test has been ordered to confirm this is needed If you develop symptoms such as a fever, cold, or flu, or have other changes to your health within TWO DAYS of scheduled surgery or the morning of surgery, please contact the surgery center above. Personal Belongings: - Leave ALL valuables and money at home or with family members. - You will need a form of ID and insurance card to check in the morning of surgery. - You will have to wear a hospital gown during your stay but if you wish to bring undergarments for after surgery you may. - Ambulatory surgery center [place]- orthopedic patients needing a walker should bring the walker into the building day of surgery. - Orthopedic patients having surgery [facility] listed as outpatient should bring their walker into the building. - Orthopedic patients having surgery [facility] listed as to be admitted should leave their walkers in the car or with a family member. Yolie Stovall APRN.CNP 03/09/22 documented in this encounter [facility] 02-14-2022 Miscellaneous Notes ` documented in this encounter [facility] 01-11-2022 History of Present illness Narrative Esther Silver is a 26 year old White female who presents with complaints of abdominal pain. The pain is in the right upper quadrant and radiates to her back. The pain happens after eating especially fatty foods. She also reports symptoms of GERD but she is on omeprazole which helps her GERD symptoms but has not made a difference in these new symptoms. She had an ultrasound which revealed cholelithiasis and there was also a liver lesion. An MRI is pending regarding the liver lesion. She was on oral contraceptives and after doing some research she discontinued those on her own. Ultrasound reviewed. PAST MEDICAL HISTORY Diagnosis Date Dysmenorrhea Gestational diabetes Hypoglycemia Hypothyroidism Mixed hyperlipidemia PAST SURGICAL HISTORY Procedure Laterality Date ADENOIDECTOMY PRIMARY <AGE 12 THYROID TONSILLECTOMY HX Social History Tobacco Use Smoking status: Never Smoker Smokeless tobacco: Never Used Vaping Use Vaping Use: Never used Substance Use Topics Alcohol use: Yes Comment: social Drug use: Never FAMILY HISTORY Problem Relation Age of Onset Hypothyroidism Mother Arthritis Father No Known Problems Sister No Known Problems Brother Diabetes Maternal Grandmother Hypertension Maternal Grandmother Heart disease Maternal Grandmother Diabetes Paternal Grandmother Blood Clots Paternal Grandfather Hypertension Paternal Grandfather ALLERGIES Allergen Reactions Ibuprofen Rash, Angioedema, Swelling Other reaction(s): Anaphylaxis, mouth tingles and tounge swells, Swelling, tongue swelling, facial itching Aleve and advil Other reaction(s): mouth tingles and tounge swells Naproxen Angioedema, Swelling, Anaphylaxis Current Outpatient Medications Medication Sig MULTIVITAMIN ORAL Take by mouth. omeprazole (PRILOSEC) 40 mg capsule Take 1 capsule by mouth once daily. levothyroxine (SYNTHROID) 175 mcg tablet Take 1 tablet by mouth once daily. (Patient taking differently: Take 175 mcg by mouth once daily. Mon- Sat. None on Sunday ) ENSKYCE 0.15-0.03 mg per tablet Take 1 tablet by mouth once daily. (Patient not taking: Reported on 01/09/2022 ) No current facility-administered medications for this visit. REVIEW OF SYSTEMS PAIN ASSESSMENT: Negative for pain, history of chronic pain, or current treatment for a chronic pain condition. GENERAL: No weight loss, malaise or fevers NECK: Negative for lumps, goiter, pain and significant neck swelling RESPIRATORY: Negative for cough, hemoptysis, wheezing, COPD, dyspnea or shortness of breath CARDIOVASCULAR: Negative for chest pain, leg swelling, hypertension, CHF or palpitations GI: See HPI : No history of dysuria, frequency or incontinence MUSCULOSKELETAL: Negative for joint pain or swelling, back pain or muscle pain HEMATOLOGY/LYMPHOLOGY: Negative for prolonged bleeding, bruising easily or swollen nodes ENDOCRINE: Negative for cold or heat intolerance, polyuria, polydipsia and goiter PHYSICAL EXAM: BP 113/67 Pulse 74 Resp 20 Ht 5' 6 (1.68m) Wt 170 lb (77.1kg) BMI 27.45 kg/(m^2). General Appearance: Well appearing, alert, in no acute distress, well-hydrated, well nourished.. Abdomen: Normal abdominal exam, Abdomen soft, non-tender. Bowel sounds normal. No masses, organomegaly, Negative CVA tenderness. Assessment: Calculus of gallbladder with chronic cholecystitis without obstruction (primary encounter diagnosis) Liver lesion Plan: ASSESSMENT/PLAN: 1. Calculus of gallbladder with chronic cholecystitis without obstruction - ICD9: 574.10, ICD10: K80.10 (primary diagnosis) Given her symptoms, I do believe she would benefit from a laparoscopic cholecystectomy. The procedure was reviewed in detail including the risks, benefits and complications inherent to the procedure. These include, but are not limited to, bleeding, infection, other organ injury, bile leak, bile duct injury necessitating further surgery. The patient understood and was agreeable to proceed. We will proceed after the MRI results. If the MRI reveals further work-up or other surgery necessary we will proceed accordingly. 2. Liver lesion - ICD9: 573.8, ICD10: K76.9 MRI pending. Medical Decision Making: Problems: Moderate: New problem with uncertain prognosis Data: Unique source(s) for external note(s) reviewed: 1 Unique test result(s) reviewed: 1 Unique test(s) ordered: 1 Risk: Moderate: Decision on elective major surgery w/o risk factors Medical Decision Making Level: 4 - Moderate Armani Chamorro M.D., F.A.C.S. documented in this encounter [facility] 01-09-2022 Instructions Armani Chamorro MD - 01/09/2022 2:36 PM EDT Images from the original note were not included. Thank you for coming to see me today. It is my pleasure to take care of you. If you have any questions regarding your visit, please don't hesitate to contact us. Laparoscopic Cholecystectomy (Gallbladder Removal) What is a laparoscopic cholecystectomy (gallbladder removal)? A laparoscopic cholecystectomy is a surgery during which the doctor removes your gallbladder. This procedure uses several small cuts instead of one large one. A laparoscope, a narrow tube with a camera, is inserted through one incision. This allows your doctor to see your gallbladder on a screen. Your gallbladder is then removed through another small incision. When is a laparoscopic cholecystectomy used? The procedure is used when you have stones in your gallbladder. The gallbladder stores bile, a fluid made by your liver. Bile helps digest fats in the foods you eat. Gallstones can block the flow of bile in your digestive system. This blockage can cause bloating, nausea, vomiting, and pain in your abdomen, shoulder, back, or chest. Gallstones can also block the ducts that channel the bile from the liver or gallbladder to the intestine. Gallstones can cause the gallbladder to become infected. A blockage in the common bile duct can cause jaundice (yellowing of your skin or eyes) or irritate the pancreas. Gallbladder and surrounding anatomy What happens during the surgery? A general anesthetic is given to relax your muscles, prevent pain, and help you fall asleep. Your abdomen is inflated with carbon dioxide, a harmless gas. The laparoscope is then inserted through a cut in your navel, so your doctor can look inside. A cholangiogram (a special X-ray) may be done while the surgery is going on to check for stones in your common bile duct. Other instruments are then inserted through additional small incisions. Your gallbladder is removed through one of these incisions. What are the potential risks and complications? The risk of complications is very low, however, potential risks might include: Bleeding Infection Common bile duct injury Minor shoulder pain (from the carbon dioxide gas) Bile leakage What are the benefits of laparoscopic cholecystectomy? Less discomfort than regular surgery [place] hospital stay, with a quicker recovery time compared to regular (open) surgery Smaller scars than regular surgery Call your doctor if you experience: Increasing pain and redness at an incision (cut) site Fever higher than 101 degrees Draining at the incision site that increases or becomes foul smelling What is an open cholecystectomy? A cholecystectomy is the removal of your gallbladder through a cut in the upper abdomen. An open cholecystectomy might be required instead of a laparoscopic cholecystectomy because of: Major scarring from a previous surgery A bleeding disorder A condition that would make it difficult to see through the laparoscope What happens during an open cholecystectomy? A general anesthetic is given to relax your muscles, prevent pain, and help you fall asleep. A single cut is made below the right side of your rib cage or in the center of the abdomen. Your doctor can see the gallbladder and surrounding anatomy through the cut. The gallbladder is cut away from surrounding tissue. The blood supply is tied off and divided. Sometimes a cholangiogram (a special X-ray) is done to check for stones in the common bile duct. If there are stones in the common bile duct, they are removed at this time. The skin is closed using surgical clips and stitches. References [employer]. Cholecystectomy Accessed 03/03/2016. [employer]. Laparoscopic Gallbladder Removal (Patient Information from [facility] [place] Accessed 03/03/2016. Copyright 2074-7023 [facility]. All rights reserved documented in this encounter [facility] 12-21-2021 Miscellaneous Notes See [employer] message from 12/19/21. Also patient is scheduled for 01/09/22 with general surgeon ----- Message from Luisito Shoemaker DO sent at 12/21/2021 2:07 PM EDT ----- gallstones documented in this encounter [facility] 12-20-2021 Miscellaneous Notes Confirmation number: [id number] documented in this encounter [facility] 12-19-2021 History of Present illness Narrative Radiology Service Progress Note PATIENT NAME: Esther Silver DATE OF SERVICE: December 19, 2021 TIME: 11:06 AM PATIENT IDENTITY VERIFICATION COMPLETED USING TWO (2) IDENTIFIERS: Name and Date of confirmed by patient verbally. FALL SCREENING: Has the patient had 2 falls in the last year or 1 fall with injury or currently using an Ambulatory Assistive Device (Walker, Cane, Wheelchair, Crutches, etc.)? No PATIENT GENDER DATA: Female. status: : No status: NO. PATIENT RELEVANT IMPLANT DATA REVIEWED: Not Applicable RADIOLOGY DEPARTMENT: Ultrasound PERIPHERAL IV DATA: Not applicable SIGNED BY: RT Mitra(R) December 19, 2021 11:06 AM documented in this encounter [facility] 12-14-2021 History of Present illness Narrative Images from the original note were not included. [facility] Luisito DO [address] [place] [address] Date of Evaluation: 12/14/2021 Patient Name: Esther Silver : 1995 Chief Complaint: Patient presents with: Hospital Follow Up: [facility] follow up Nursing Intake: There are no exam notes on file for this visit. Subjective Ms. Silver is a 26 year old female who presents with the following complaint(s): The history is provided by the patient. No hospice chaplain was used. Abdominal Pain This is a recurrent problem. The current episode started more than 1 week ago. The problem has not changed since onset.The pain is associated with eating. The pain is located in the RUQ. The quality of the pain is aching, dull, burning and pressure-like. The pain is moderate. Pertinent negatives include hematuria and headaches. Nothing aggravates the symptoms. Nothing relieves the symptoms. Review of Systems Constitutional: Negative for fatigue and unexpected weight change. HENT: Negative for nosebleeds. Eyes: Negative for redness and visual disturbance. Respiratory: Negative for apnea, cough and shortness of breath. Cardiovascular: Negative for chest pain, palpitations and leg swelling. Gastrointestinal: Positive for abdominal pain. Genitourinary: Negative for hematuria. Neurological: Negative for dizziness, weakness, light-headedness, numbness and headaches. Hematological: Does not bruise/bleed easily. Psychiatric/Behavioral: The patient is not nervous/anxious. PAST MEDICAL HISTORY Diagnosis Date Dysmenorrhea Gestational diabetes Hypoglycemia Hypothyroidism Mixed hyperlipidemia PAST SURGICAL HISTORY Procedure Laterality Date ADENOIDECTOMY PRIMARY <AGE 12 THYROID TONSILLECTOMY HX FAMILY HISTORY Problem Relation Age of Onset Hypothyroidism Mother Arthritis Father No Known Problems Sister No Known Problems Brother Diabetes Maternal Grandmother Hypertension Maternal Grandmother Heart disease Maternal Grandmother Diabetes Paternal Grandmother Blood Clots Paternal Grandfather Hypertension Paternal Grandfather Social History Tobacco Use Smoking status: Never Smoker Smokeless tobacco: Never Used Vaping Use Vaping Use: Never used Substance Use Topics Alcohol use: Yes Comment: social Drug use: Never Current Medications MULTIVITAMIN ORAL Take by mouth. ENSKYCE 0.15-0.03 mg per tablet Take 1 tablet by mouth once daily. levothyroxine (SYNTHROID) 175 mcg tablet Take 1 tablet by mouth once daily. omeprazole (PRILOSEC) 40 mg capsule Take 1 capsule by mouth once daily. I have confirmed and edited as necessary the past medical, family and social histories, HPI, and ROS obtained by others. Objective BP 102/78 Pulse 97 Temp 97.7 Ht 5' 6 (1.68m) Wt 171 lb (77.6kg) SpO2 98% BMI 27.61 kg/(m^2). Physical Exam Vitals and nursing note reviewed. Constitutional: General: She is not in acute distress. Appearance: Normal appearance. She is well-developed. She is not ill-appearing. HENT: Head: Normocephalic. Right Ear: Tympanic membrane, ear canal and external ear normal. There is no impacted cerumen. Left Ear: Tympanic membrane, ear canal and external ear normal. There is no impacted cerumen. Nose: Nose normal. Mouth/Throat: Mouth: Mucous membranes are moist. Pharynx: Oropharynx is clear. Uvula midline. No oropharyngeal exudate or posterior oropharyngeal erythema. Eyes: General: Lids are normal. Vision grossly intact. Gaze aligned appropriately. No scleral icterus. Right eye: No discharge. Left eye: No discharge. Extraocular Movements: Extraocular movements intact. Conjunctiva/sclera: Conjunctivae normal. Pupils: Pupils are equal, round, and reactive to light. Neck: Thyroid: No thyroid mass, thyromegaly or thyroid tenderness. Vascular: No carotid bruit. Trachea: Trachea and phonation normal. Cardiovascular: Rate and Rhythm: Normal rate and regular rhythm. Pulses: Normal pulses. Heart sounds: Normal heart sounds. Pulmonary: Effort: Pulmonary effort is normal. Breath sounds: Normal breath sounds. Abdominal: General: Abdomen is flat. Bowel sounds are normal. Palpations: Abdomen is soft. Musculoskeletal: General: Normal range of motion. Right shoulder: Normal. Left shoulder: Normal. Cervical back: Normal, full passive range of motion without pain and neck supple. No tenderness. No spinous process tenderness. Thoracic back: Normal. Lumbar back: Normal. Right knee: Normal. Left knee: Normal. Right lower leg: No edema. Left lower leg: No edema. Lymphadenopathy: Cervical: No cervical adenopathy. Skin: General: Skin is warm and dry. Neurological: General: No focal deficit present. Mental Status: She is alert and oriented to person, place, and time. Mental status is at baseline. Cranial Nerves: Cranial nerves are intact. Sensory: Sensation is intact. Motor: Motor function is intact. Psychiatric: Attention and Perception: Attention and perception normal. Mood and Affect: Mood normal. Speech: Speech normal. Behavior: Behavior normal. Thought Content: Thought content normal. Judgment: Judgment normal. Data Reviewed: No new labs ASSESSMENT/PLAN: 1. RUQ pain - ICD9: 789.01, ICD10: R10.11 (primary diagnosis) - Obtain US - Avoid fried, greasy, fatty foods - US ABD RT UPPER QUADRANT 2. GERD without esophagitis - ICD9: 530.81, ICD10: K21.9 - Start Omeprazole daily - OMEPRAZOLE 40 MG CAPSULE,DELAYED RELEASE Luisito Shoemaker DO' Return if symptoms worsen or fail to improve. Attestation: Scribe Statement: Brooke Zavala am scribing for, and in the presence of, Luisito Shoemaker DO December 14, 2021 10:54 AM. Physician Statement: I, Luisito Sohemaker DO, personally performed the services described in the documentation, as scribed by Luisa Murray in my presence, and it is both accurate and complete December 14, 2021 10:57 AM. documented in this encounter [facility] 07-06-2021 History of Present illness Narrative CC: right 5th metatarsal fracture follow up HPI: This 25 year old female with PMH indicated below presents today for follow up of right 5th metatarsal avulsion fracture. Date of injury was 05/09/21 after rolling her ankle. She has been weightbearing in a CAM boot since last visit. Pain has improved. States she does have pain in the boot at the end of the day or when she is out of the boot in the shower. Patient denies to numbness and tingling. Denies any current nausea, vomiting, fever, chills, shortness of breath, chest pain or calf pain. Denies any other pedal complaints. Luisito Shoemaker, PAST MEDICAL HISTORY Diagnosis Date Dysmenorrhea Gestational diabetes Hypoglycemia Hypothyroidism Mixed hyperlipidemia Current Outpatient Medications Medication Sig Dispense Refill ENSKYCE 0.15-0.03 mg per tablet Take 1 tablet by mouth once daily. levothyroxine (SYNTHROID) 175 mcg tablet Take 1 tablet by mouth once daily. (Patient taking differently: Take 175 mcg by mouth once daily. Sun- Sat. None on Sunday ) 30 tablet 5 No current facility-administered medications for this visit. ALLERGIES Allergen Reactions Ibuprofen Rash, Angioedema Other reaction(s): Anaphylaxis, mouth tingles and tounge swells, Swelling, tongue swelling, facial itching Aleve and advil Naproxen Angioedema, Swelling PAST SURGICAL HISTORY Procedure Laterality Date REMOVAL ADENOIDS,PRIMARY,<12 Y/O THYROID TONSILLECTOMY HX Social History Tobacco Use Smoking status: Never Smoker Smokeless tobacco: Never Used Vaping Use Vaping Use: Never used Substance Use Topics Alcohol use: Yes Comment: social Drug use: Never FAMILY HISTORY Problem Relation Age of Onset Hypothyroidism Mother Arthritis Father No Known Problems Sister No Known Problems Brother Diabetes Maternal Grandmother Hypertension Maternal Grandmother Heart disease Maternal Grandmother Diabetes Paternal Grandmother Blood Clots Paternal Grandfather Hypertension Paternal Grandfather I have confirmed and edited as necessary, the PFSH and ROS obtained by others. Physical examination: On General Observation: Patient is a pleasant, cooperative, well developed 25 year old adult female. The patient is alert and oriented to time, place and person. Patient has normal affect and mood. Resp 17 Ht 167.6 cm (5' 6 ) Wt 78.5 kg (173 lb) BMI 27.92 kg/m Patient presents in CAM boot today. Vascular: DP and PT pulses are palpable. CFT less than 3 seconds to all digits bilateral. Skin temperature is warm to warm from proximal to distal bilateral. Hair growth is noted. Minimal edema to the lateral right midfoot. No varicosities noted. Neuro: Light touch intact bilateral. Derm: Skin texture and turgor within normal limits. Toenails normal in appearance. Webspaces 1-4 clean, dry, intact bilateral. No rashes, subcutaneous nodules, or open lesions noted. No hyperkeratotic tissue. No ecchymosis. No fracture blisters noted. No erythema. Musc: Increased medial longitudinal arch. Muscle strength is 5/5 for all muscle groups including dorsiflexors, plantarflexors, everters, and inverters on the left. Muscle strength is 5/5 for all muscle groups including dorsiflexors, plantarflexors, and inverters on the right. 4/5 muscle strength with eversion on the right. No pain with active eversion. No pain to palpation to the base of the fifth metatarsal on the right. No pain noted to palpation to the ATFL. Ankle ROM of decreased without pain on the right. Radiographs: 3 views of the right foot were taken and reviewed today. Radiographic impression: Joint spaces maintained. Again a comminuted intra-articular displaced, oblique avulsion fracture noted to 5th metatarsal base. No change in position. Increased osseous trabeculation noted across the fracture site without complete consolidation. Impression: This is a 25 year old patient presenting with closed 5th metatarsal avulsion fracture of the right foot with routine healing. Plan: A problem focused history and physical examination were preformed. The patient was educated on clinical and radiographic findings, diagnosis and treatment plans. Patient state that she understands all that has been explained and all questions were answered to her apparent satisfaction. - Ok to to transition out of the boot in the lace up ankle brace and supportive shoes. - Lace up ankle brace was dispensed today. - Continue to minimize activities at this time. - Instructed on performing ankle exercises. Literature and theraband dispensed today. Follow up in 1 month with repeat x-rays. Roxie Gallegos DPM AACFAS REVIEW OF SYSTEMS: GENERAL: Well developed, well nourished. No acute distress PAIN: Negative for pain, history of chronic pain or current treatment for chronic pain conditions CARDIOVASCULAR: Negative for chest pain, leg swelling and palpations. MSK: Negative for joint swelling SKIN: Negative for lesions, rash, itching, metal sensitivity NEURO: Negative for seizure, trauma, numbness/tingling of extremities. ENDOCRINE: Negative for diabetic associated symptoms HEMATOLOGY: Negative for excessive bleeding, clots, bleeding disorders. documented in this encounter [facility] 06-10-2021 History of Present illness Narrative CC: right 5th metatarsal fracture follow up HPI: This 25 year old female with PMH indicated below presents today for follow up of right 5th metatarsal avulsion fracture. Date of injury was 05/09/21 after rolling her ankle. She has been weightbearing in a CAM boot since last visit. Pain has improved. States she does have pain in the boot at the end of the day or when she is out of the boot in the shower. Patient denies to numbness and tingling. Denies any current nausea, vomiting, fever, chills, shortness of breath, chest pain or calf pain. Denies any other pedal complaints. Luisito Shoemaker DO PAST MEDICAL HISTORY Diagnosis Date Dysmenorrhea Gestational diabetes Hypoglycemia Hypothyroidism Mixed hyperlipidemia Current Outpatient Medications Medication Sig Dispense Refill ENSKYCE 0.15-0.03 mg per tablet Take 1 tablet by mouth once daily. levothyroxine (SYNTHROID) 175 mcg tablet Take 1 tablet by mouth once daily. (Patient taking differently: Take 175 mcg by mouth once daily. Mon- Sat. None on Sunday ) 30 tablet 5 No current facility-administered medications for this visit. ALLERGIES Allergen Reactions Ibuprofen Rash, Angioedema Other reaction(s): Anaphylaxis, mouth tingles and tounge swells, Swelling, tongue swelling, facial itching Aleve and advil Naproxen Angioedema, Swelling PAST SURGICAL HISTORY Procedure Laterality Date REMOVAL ADENOIDS,PRIMARY,<12 Y/O THYROID TONSILLECTOMY HX Social History Tobacco Use Smoking status: Never Smoker Smokeless tobacco: Never Used Vaping Use Vaping Use: Never used Substance Use Topics Alcohol use: Yes Comment: social Drug use: Never FAMILY HISTORY Problem Relation Age of Onset Hypothyroidism Mother Arthritis Father No Known Problems Sister No Known Problems Brother Diabetes Maternal Grandmother Hypertension Maternal Grandmother Heart disease Maternal Grandmother Diabetes Paternal Grandmother Blood Clots Paternal Grandfather Hypertension Paternal Grandfather I have confirmed and edited as necessary, the PFSH and ROS obtained by others. Physical examination: On General Observation: Patient is a pleasant, cooperative, well developed 25 year old adult female. The patient is alert and oriented to time, place and person. Patient has normal affect and mood. Resp 20 Ht 167.6 cm (5' 6 ) Wt 78.5 kg (173 lb) BMI 27.92 kg/m [facility] Vascular: DP and PT pulses are palpable. CFT less than 3 seconds to all digits bilateral. Skin temperature is warm to warm from proximal to distal bilateral. Hair growth is noted. Mild edema to the lateral right midfoot. No varicosities noted. Neuro: Light touch intact bilateral. Derm: Skin texture and turgor within normal limits. Toenails normal in appearance. Webspaces 1-4 clean, dry, intact bilateral. No rashes, subcutaneous nodules, or open lesions noted. No hyperkeratotic tissue. Ecchymosis has resolved. No fracture blisters noted. No erythema. Musc: Increased medial longitudinal arch. Muscle strength is 5/5 for all muscle groups including dorsiflexors, plantarflexors, everters, and inverters on the left. Muscle strength is 5/5 for all muscle groups including dorsiflexors, plantarflexors, and inverters on the right. Pain to palpation to the base of the fifth metatarsal on the right. The peroneal tendons appears to be intact but there is guarded muscle strength testing to eversion against resistance on the right. No pain noted to palpation to the ATFL. Ankle ROM of decreased without pain on the right. Radiographs: 3 views of the right foot were taken and reviewed today. Radiographic impression: Joint spaces maintained. Again a comminuted intra-articular displaced, oblique avulsion fracture noted to 5th metatarsal base. No change in position. Impression: This is a 25 year old patient presenting with closed 5th metatarsal avulsion fracture of the right foot with routine healing. Plan: A problem focused history and physical examination were preformed. The patient was educated on clinical and radiographic findings, diagnosis and treatment plans. Patient state that she understands all that has been explained and all questions were answered to her apparent satisfaction. - Discussed continued need for protected weightbearing in short boot and modification of activity to allow for healing. - Advised patient to minimize activity. Ok to start driving. Discussed she cannot drive in the fracture boot. - Return to work note dispensed Follow up in 2 weeks with repeat x-rays. Consider transition out of the boot into lace up ankle brace at this time. Roxie Gallegos DPM AACFAS documented in this encounter [facility] 05-20-2021 History of Present illness Narrative CC: right foot injury HPI: This 25 year old female with PMH indicated below presents today for right foot injury. Patient states that injuried right foot on 05/09/21. Patient states that she tripped and thought she just sprained her ankle. She saw her PCP who obtained x-rays and was told that broke a bone in their foot. Patient states has applied weight to the injured extremity since that time in regular shoes. Pain is moderate, rated as 7/10. Patient denies to numbness and tingling. Denies any current nausea, vomiting, fever, chills, shortness of breath, chest pain or calf pain. Denies any other pedal complaints. Luisito Shoemaker, PAST MEDICAL HISTORY Diagnosis Date Dysmenorrhea Gestational diabetes Hypoglycemia Hypothyroidism Mixed hyperlipidemia Current Outpatient Medications Medication Sig Dispense Refill ENSKYCE 0.15-0.03 mg per tablet Take 1 tablet by mouth once daily. levothyroxine (SYNTHROID) 175 mcg tablet Take 1 tablet by mouth once daily. (Patient taking differently: Take 175 mcg by mouth once daily. Mon- Sat. None on Sunday ) 30 tablet 5 No current facility-administered medications for this visit. ALLERGIES Allergen Reactions Ibuprofen Rash, Angioedema Other reaction(s): Anaphylaxis, mouth tingles and tounge swells, Swelling, tongue swelling, facial itching Aleve and advil Naproxen Angioedema, Swelling PAST SURGICAL HISTORY Procedure Laterality Date REMOVAL ADENOIDS,PRIMARY,<12 Y/O THYROID TONSILLECTOMY HX Social History Tobacco Use Smoking status: Never Smoker Smokeless tobacco: Never Used Vaping Use Vaping Use: Never used Substance Use Topics Alcohol use: Yes Comment: social Drug use: Never FAMILY HISTORY Problem Relation Age of Onset Hypothyroidism Mother Arthritis Father No Known Problems Sister No Known Problems Brother Diabetes Maternal Grandmother Hypertension Maternal Grandmother Heart disease Maternal Grandmother Diabetes Paternal Grandmother Blood Clots Paternal Grandfather Hypertension Paternal Grandfather REVIEW OF SYSTEMS see tech note I have confirmed and edited as necessary, the PFSH and ROS obtained by others. Physical examination: On General Observation: Patient is a pleasant, cooperative, well developed 25 year old adult female. The patient is alert and oriented to time, place and person. Patient has normal affect and mood. Resp 16 Ht 167.6 cm (5' 6 ) Wt 78.5 kg (173 lb) BMI 27.92 kg/m Patient presents in regular shoes today. Vascular: DP and PT pulses are palpable. CFT less than 3 seconds to all digits bilateral. Skin temperature is warm to warm from proximal to distal bilateral. Hair growth is noted. Positive edema noted overlying lateral midfoot right foot. No varicosities noted. Neuro: Light touch intact bilateral. Derm: Skin texture and turgor within normal limits. Toenails normal in appearance. Webspaces 1-4 clean, dry, intact bilateral. No rashes, subcutaneous nodules, or open lesions noted. No hyperkeratotic tissue. Ecchymosis noted to lateral midfoot. No fracture blisters noted. Musc: Increased medial longitudinal arch. Muscle strength is 5/5 for all muscle groups including dorsiflexors, plantarflexors, everters, and inverters on the left. Muscle strength is 5/5 for all muscle groups including dorsiflexors, plantarflexors, and inverters on the right. Pain to palpation to the base of the fifth metatarsal on the right. The peroneal tendons appears to be intact but there is guarded muscle strength testing to eversion against resistance on the right. No pain noted to palpation of the cuboid or the adjacent metatarsals. Pain noted to palpation to the ATFL. No pain to palpation of the lateral malleolus and distal syndesmosis. Ankle ROM of decreased on the right. Radiographs: 3 views of the right foot were taken and reviewed today. Radiographic impression: Joint spaces maintained. Complete comminuted intra-articular displaced, oblique avulsion fracture noted to 5th metatarsal base. No bony cyst or tumors noted. Increased calcaneal inclination angle. Decreased talar declination angle. Impression: This is a 25 year old patient presenting with closed 5th metatarsal avulsion fracture of the right foot Plan: A comprehensive history and physical examination were preformed. The patient was educated on clinical and radiographic findings, diagnosis and treatment plans. Patient state that she understands all that has been explained and all questions were answered to her apparent satisfaction. Etiology and tx options were discussed in detail with the pt. - Discussed need for protected weightbearing and modification of activity to allow for healing. - Did not have short boots here at our [place] office. 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 No driving. - Work note was dispensed. - Advised patient on use of OTC anti-inflammatories as needed for pain. Follow up in 3 weeks with repeat x-rays. Roxie Gallegos DPM AACFAS REVIEW OF SYSTEMS: GENERAL: Well developed, well nourished. No acute distress PAIN: Pain R foot 6/7-10 when walking CARDIOVASCULAR: Negative for chest pain, leg swelling and palpations. MSK: Negative for joint swelling SKIN: Negative for lesions, rash, itching, metal sensitivity NEURO: Negative for seizure, trauma, numbness/tingling of extremities. ENDOCRINE: Negative for diabetic associated symptoms HEMATOLOGY: Negative for excessive bleeding, clots, bleeding disorders. documented in this encounter [facility] 05-18-2021 Miscellaneous Notes Patient updated. Left message to call office back for results and update. Stay off foot Ortho consult written Patient saw her results from xray of her right foot from this morning. Wanting to know what to do now? Please advise. documented in this encounter [facility] 05-16-2021 History of Present illness Narrative Radiology Service Progress Note PATIENT NAME: Esther Silver DATE OF SERVICE: May 16, 2021 TIME: 10:27 AM PATIENT IDENTITY VERIFICATION COMPLETED USING TWO (2) IDENTIFIERS: Name and Date of confirmed by patient verbally and Name and Date of confirmed by identification band. FALL SCREENING: Has the patient had 2 falls in the last year or 1 fall with injury or currently using an Ambulatory Assistive Device (Walker, Cane, Wheelchair, Crutches, etc.)? No PATIENT GENDER DATA: Female. status: : No status: NO. PATIENT RELEVANT IMPLANT DATA REVIEWED: Not Applicable RADIOLOGY DEPARTMENT: General X-ray: Exam(s) Completed: Lower Extremity X-Ray(s): Foot, Right PERIPHERAL IV DATA: Not applicable SIGNED BY: RT Kitty(R) May 16, 2021 10:27 AM documented in this encounter [facility] Fracture- Primary Closed fracture of unspecified bone [facility] Diagnosis Closed displaced fracture of fifth metatarsal bone of right foot, initial encounter- Primary [facility]* Diagnosis Closed displaced fracture of fifth metatarsal bone of right foot with routine healing, subsequent encounter- Primary [facility] Diagnosis Closed displaced fracture of fifth metatarsal bone of right foot with routine healing, subsequent encounter- Primary [facility]* Diagnosis RUQ pain- Primary Abdominal pain, right upper quadrant GERD without esophagitis Esophageal reflux [facility] Diagnosis RUQ pain Abdominal pain, right upper quadrant [facility]* Diagnosis Gallstones- Primary Calculus of gallbladder without mention of cholecystitis or obstruction [facility]* Diagnosis Right upper quadrant pain- Primary Abdominal pain, right upper quadrant [facility]* Diagnosis Calculus of gallbladder with chronic cholecystitis without obstruction- Primary Calculus of gallbladder with other cholecystitis, without mention of obstruction Liver lesion Other specified disorders of liver [facility]* Diagnosis Right upper quadrant pain Abdominal pain, right upper quadrant [facility]* Diagnosis Chronic liver disease Unspecified chronic liver disease without mention of alcohol [facility]* Diagnosis Calculus of gallbladder with chronic cholecystitis without obstruction- Primary Calculus of gallbladder with other cholecystitis, without mention of obstruction Liver lesion Other specified disorders of liver Calculus of gallbladder with chronic cholecystitis without obstruction Calculus of gallbladder with other cholecystitis, without mention of obstruction Liver lesion Other specified disorders of liver [facility]* Diagnosis Preop examination Preoperative examination, unspecified Calculus of gallbladder with chronic cholecystitis without obstruction Calculus of gallbladder with other cholecystitis, without mention of obstruction Postoperative hypothyroidism Postsurgical hypothyroidism Liver lesion Other specified disorders of liver Calculus of gallbladder with chronic cholecystitis without obstruction Calculus of gallbladder with other cholecystitis, without mention of obstruction Liver lesion Other specified disorders of liver [facility]* Diagnosis Postop check- Primary Follow-up examination, following unspecified surgery History of gallstones Personal history of other diseases of digestive system S/P jocelin Other acquired absence of organ Dizziness Dizziness and giddiness [facility]* Diagnosis Chronic liver disease Unspecified chronic liver disease without mention of alcohol [facility] Diagnostic Procedure Only (Routine) Status Reason Specialty Diagnoses / Procedures Referred By Contact Referred To Contact Closed Auto-Generated Referral XR IMAGING Diagnoses Right foot pain Procedures XR FOOT GENERAL 3V AP/LAT/OBL RT X-RAY FOOT MINIMUM 3 VIEWS Luisito Shoemaker DO [address] [place] [address] Xr Imaging [facility] for referral (narrative)* Diagnostic Procedure Only (Routine) Status Reason Specialty Diagnoses / Procedures Referred By Contact Referred To Contact Pending Review Auto-Generated Referral XR IMAGING Diagnoses Closed displaced fracture of fifth metatarsal bone of right foot, initial encounter Procedures XR FOOT GENERAL 3V AP/LAT/OBL RT X-RAY FOOT MINIMUM 3 VIEWS Roxie Gallegos DPM [address] [place] [address] Xr Imaging [facility] for referral (narrative)* Diagnostic Procedure Only (Routine) Status Reason Specialty Diagnoses / Procedures Referred By Contact Referred To Contact Pending Review Auto-Generated Referral XR IMAGING Diagnoses Closed displaced fracture of fifth metatarsal bone of right foot with routine healing, subsequent encounter Procedures XR FOOT GENERAL 3V AP/LAT/OBL RT X-RAY FOOT MINIMUM 3 VIEWS Roxie Gallegos DPM [address] [place] [address] Xr Imaging [facility] for referral (narrative)* Diagnostic Procedure Only (Routine) - Pending Review Specialty Diagnoses / Procedures Referred By Contac t Referred To Contact XR IMAGING Diagnoses Closed displaced fracture of fifth metatarsal bone of right foot with routine healing, subsequent encounter Procedures XR FOOT GENERAL 3V AP/LAT/OBL RT X-RAY FOOT MINIMUM 3 VIEWS Roxie Gallegos DPM [address] [place] [address] Xr Imaging Referral ID Status Reason Start Date Expiration Date Visits Requested Visits Authorized [id number] Pending Review Auto-Generat ed Referral 08/05/2022 1 1 [facility] for referral (narrative)* Diagnostic Procedure Only (Routine) - Closed Specialty Diagnoses / Procedures Referred By Contac t Referred To Contact US IMAGING Diagnoses RUQ pain Procedures US ABD RT UPPER QUADRANT US ABDOMINAL REAL TIME W/IMAGE LIMITED Luisito Shoemaker, [place] [address] Us Imaging Referral ID Status Reason Start Date Expiration Date V isits Requested Visits Authorized [id number] Closed Auto-Generate d Referral 08/27/2021 08/26/2022 1 1 [facility] for referral (narrative)* Diagnostic Procedure Only (Routine) - Closed Specialty Diagnoses / Procedures Referred By Contac t Referred To Contact US IMAGING Diagnoses RUQ pain Procedures US ABD RT UPPER QUADRANT US ABDOMINAL REAL TIME W/IMAGE LIMITED WinterLuisito rizo, [place] [address] Us Imaging Referral ID Status Reason Start Date Expiration Date V isits Requested Visits Authorized [id number] Closed Auto-Generate d Referral 08/27/2021 08/26/2022 1 1 T [facility] for visit Narrative* Diagnostic Procedure Only (Routine) Status Reason Specialty Diagnoses / Procedures Referred By Contact Referred To Contact Closed Auto-Generated Referral XR IMAGING Diagnoses Right foot pain Procedures XR FOOT GENERAL 3V AP/LAT/OBL RT X-RAY FOOT MINIMUM 3 VIEWS Luisito Shoemaker, [place] [address] Xr Imaging [facility] for visit Narrative* Diagnostic Procedure Only (Routine) - Closed Specialty Diagnoses / Procedures Referred By Contac t Referred To Contact US IMAGING Diagnoses RUQ pain Procedures US ABD RT UPPER QUADRANT US ABDOMINAL REAL TIME W/IMAGE LIMITED WinterLuisito rizo, [place] [address] Us Imaging Referral ID Status Reason Start Date Expiration Date V isits Requested Visits Authorized [id number] Closed Auto-Generate d Referral 08/27/2021 08/26/[address] 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 Advance Directive(s) 03/16/2022 10:14 AM Reason for Referral Status Reason Specialty Diagnoses / Procedures Referred By Contact Referred To Contact Authorized PCP Requested Referral Orthopedics Diagnoses Fracture Procedures CONSULT TO ORTHOPAEDICS NEW PATIENT VISIT LEVEL 5 [facility], [place] [address] Specialty Diagnoses / Procedures Referred By Contac t Referred To Contact MR IMAGING Diagnoses Gallstones Procedures MRI LIVER WO IVCON MRI, ABDOMEN (MRI) [place] [address] Mr Imaging Referral ID Status Reason Start Date Expiration Date Visits Requested Visits Authorized [id number] Pending Review Auto-Generat ed Referral 12/20/2021 01/19/2023 1 1 Specialty Diagnoses / Procedures Referred By Contac t Referred To Contact General Surgery Diagnoses Gallstones Procedures CONSULT TO GENERAL SURGERY OFFICE/OUTPATIENT [facility] 60-74 MINUTES WinterCharmaineSalisbury Devyn, [place] [address] Referral ID Status Reason Start Date Expiration Date Visits Requested Visits Authorized [id number] Pending Review PCP Requested Referral 12/20/2021 12/20/2022 1 1 Specialty Diagnoses / Procedures Referred By Contac t Referred To Contact MR IMAGING Diagnoses Right upper quadrant pain Procedures MRI 3D POST PROCESSING 3D RENDERING W/INTERP&POSTPROC DIFF WORK [place] [address] Mr Imaging Referral ID Status Reason Start Date Expiration Date Visits Requested Visits Authorized [id number] Pending Review Auto-Generat ed Referral 01/06/2022 02/05/2023 1 1 Specialty Diagnoses / Procedures Referred By Contac t Referred To Contact MR IMAGING Diagnoses Right upper quadrant pain Procedures MRI LIVER WO/W IVCON MRI ABDOMEN W/O & W/CONTRAST MATERIAL Luisito Shoemaker, DO [address] [place] [id number] Mr Imaging Referral ID Status Reason Start Date Expiration Date Visits Requested Visits Authorized [id number] Pending Review Auto-Generat ed Referral 01/06/2022 02/05/2023 1 1 Specialty Diagnoses / Procedures Referred By Contac t Referred To Contact MR IMAGING Diagnoses Chronic liver disease Procedures MRI LIVER WO/W IVCON MRI ABDOMEN W/O & W/CONTRAST MATERIAL Luisito Shoemaker, DO [address] [place] [address] Mr Imaging Referral ID Status Reason Start Date Expiration Date Visits Requested Visits Authorized [id number] Pending Review Auto-Generat ed Referral 02/14/2022 03/16/2023 1 1 Referral ID Status Reason Start Date Expiration Date V isits Requested Visits Authorized [id number] Closed Auto-Generate d Referral 08/27/2021 08/26/2022 1 1 Additional Source Comments INFORMATION SOURCE (unrecogn ized section and content) DATE CREATED AUTHOR AUTHOR'S ORGANIZ ATION 10/21/2019 [facility] ([place]) DATE CREATED AUTHOR AUTHOR'S ORGANIZ ATION 10/22/2020 [facility] DATE CREATED AUTHOR AUTHOR'S ORGANIZ ATION 03/07/2023 [facility] [place] Source Comments (unrecognize d section and content) In the event this informatio n is protected by the Federal Confidentiality of Alcohol and Drug Abuse Patient Records regulations: The Federal rules restrict any use of the information to criminally investigate or prosecute any alcohol or drug abuse patient.[facility] the event this information is protected by the Federal Confidentiality of Alcohol and Drug Abuse Patient Records regulations: The Federal rules restrict any use of the information to criminally investigate or prosecute any alcohol or drug abuse patient.[facility] the event this information is protected by the Federal Confidentiality of Alcohol and Drug Abuse Patient Records regulations: The Federal rules restrict any use of the information to criminally investigate or prosecute any alcohol or drug abuse patient.[facility] the event this information is protected by the Federal Confidentiality of Alcohol and Drug Abuse Patient Records regulations: The Federal rules restrict any use of the information to criminally investigate or prosecute any alcohol or drug abuse patient.[facility] the event this information is protected by the Federal Confidentiality of Alcohol and Drug Abuse Patient Records regulations: The Federal rules restrict any use of the information to criminally investigate or prosecute any alcohol or drug abuse patient.[facility] the event this information is protected by the Federal Confidentiality of Alcohol and Drug Abuse Patient Records regulations: The Federal rules restrict any use of the information to criminally investigate or prosecute any alcohol or drug abuse patient.[facility] the event this information is protected by the Federal Confidentiality of Alcohol and Drug Abuse Patient Records regulations: The Federal rules restrict any use of the information to criminally investigate or prosecute any alcohol or drug abuse patient.[facility] the event this information is protected by the Federal Confidentiality of Alcohol and Drug Abuse Patient Records regulations: The Federal rules restrict any use of the information to criminally investigate or prosecute any alcohol or drug abuse patient.[facility] the event this information is protected by the Federal Confidentiality of Alcohol and Drug Abuse Patient Records regulations: The Federal rules restrict any use of the information to criminally investigate or prosecute any alcohol or drug abuse patient.[facility] the event this information is protected by the Federal Confidentiality of Alcohol and Drug Abuse Patient Records regulations: The Federal rules restrict any use of the information to criminally investigate or prosecute any alcohol or drug abuse patient.[facility] the event this information is protected by the Federal Confidentiality of Alcohol and Drug Abuse Patient Records regulations: The Federal rules restrict any use of the information to criminally investigate or prosecute any alcohol or drug abuse patient.[facility] the event this information is protected by the Federal Confidentiality of Alcohol and Drug Abuse Patient Records regulations: The Federal rules restrict any use of the information to criminally investigate or prosecute any alcohol or drug abuse patient.[facility] the event this information is protected by the Federal Confidentiality of Alcohol and Drug Abuse Patient Records regulations: The Federal rules restrict any use of the information to criminally investigate or prosecute any alcohol or drug abuse patient.[facility] the event this information is protected by the Federal Confidentiality of Alcohol and Drug Abuse Patient Records regulations: The Federal rules restrict any use of the information to criminally investigate or prosecute any alcohol or drug abuse patient.[facility] the event this information is protected by the Federal Confidentiality of Alcohol and Drug Abuse Patient Records regulations: The Federal rules restrict any use of the information to criminally investigate or prosecute any alcohol or drug abuse patient.[facility] the event this information is protected by the Federal Confidentiality of Alcohol and Drug Abuse Patient Records regulations: The Federal rules restrict any use of the information to criminally investigate or prosecute any alcohol or drug abuse patient.[facility] the event this information is protected by the Federal Confidentiality of Alcohol and Drug Abuse Patient Records regulations: The Federal rules restrict any use of the information to criminally investigate or prosecute any alcohol or drug abuse patient.[facility] the event this information is protected by the Federal Confidentiality of Alcohol and Drug Abuse Patient Records regulations: The Federal rules restrict any use of the information to criminally investigate or prosecute any alcohol or drug abuse patient.[facility] the event this information is protected by the Federal Confidentiality of Alcohol and Drug Abuse Patient Records regulations: The Federal rules restrict any use of the information to criminally investigate or prosecute any alcohol or drug abuse patient.[facility] the event this information is protected by the Federal Confidentiality of Alcohol and Drug Abuse Patient Records regulations: The Federal rules restrict any use of the information to criminally investigate or prosecute any alcohol or drug abuse patient.[facility] the event this information is protected by the Federal Confidentiality of Alcohol and Drug Abuse Patient Records regulations: The Federal rules restrict any use of the information to criminally investigate or prosecute any alcohol or drug abuse patient.[facility] the event this information is protected by the Federal Confidentiality of Alcohol and Drug Abuse Patient Records regulations: The Federal rules restrict any use of the information to criminally investigate or prosecute any alcohol or drug abuse patient.[facility] the event this information is protected by the Federal Confidentiality of Alcohol and Drug Abuse Patient Records regulations: The Federal rules restrict any use of the information to criminally investigate or prosecute any alcohol or drug abuse patient.[facility] the event this information is protected by the Federal Confidentiality of Alcohol and Drug Abuse Patient Records regulations: The Federal rules restrict any use of the information to criminally investigate or prosecute any alcohol or drug abuse patient.[facility] the event this information is protected by the Federal Confidentiality of Alcohol and Drug Abuse Patient Records regulations: The Federal rules restrict any use of the information to criminally investigate or prosecute any alcohol or drug abuse patient.[facility] the event this information is protected by the Federal Confidentiality of Alcohol and Drug Abuse Patient Records regulations: The Federal rules restrict any use of the information to criminally investigate or prosecute any alcohol or drug abuse patient.[facility] Reason for Visit (unrecogniz ed section and content) Reason Comments Results Reason Comments New Status Reason Specialty Diagnoses / Procedures Referred By Contact Referred To Contact Closed PCP Requested Referral Orthopedics Diagnoses Fracture Procedures CONSULT TO ORTHOPAEDICS NEW PATIENT VISIT LEVEL [address] [place] [address] Reason Comments Follow Up Pain Fracture Reason Comments Follow Up Reason Comments Hospital Follow Up [facility] fol low up Specialty Diagnoses / Procedures Referred By Blanca woodson Referred To Contact Family Practice / FAMILY MEDICINE Diagnoses [facility] ED ON 12/13 FOR GALLBLADDER CONCERNS (DRZ) Procedures 4C EST HOSP/ER FU Luisito Shoemaker, [place] [address] [place] [address] Referral ID Status Reason Start Date Expiration Date Visits Requested Visits Authorized [id number] Authorized Patient Cleared - INN Insurance Found 12/14/2021 03/14/2022 99 [phone] Reason Comments Results Reason Comments New Patient GALL BLADDER Specialty Diagnoses / Procedures Referred By Contac t Referred To Contact General Surgery / GENERAL SURGERY Diagnoses Follow-up exam gallstones Procedures OFFICE/OUTPATIENT NEW MODERATE MDM 45-59 MINUTES NEW PATIENT Luisito Shoemaker, DO [address] [place] [address] Armani Chamorro MD [address] [place] [address] Referral ID Status Reason Start Date Expiration Date Visits Re quested Visits Authorized [id number] Closed 08/27/2021 08/26/2022 1 1 Specialty Diagnoses / Procedures Referred By Contac t Referred To Contact MR IMAGING Diagnoses Right upper quadrant pain Procedures MRI LIVER WO/W IVCON MRI ABDOMEN W/O & W/CONTRAST MATERIAL Luisito Shoemaker, DO [address] [place] [address] Mr Imaging Referral ID Status Reason Start Date Expiration Date V isits Requested Visits Authorized [id number] Closed Auto-Generat ed Referral Clearance Not Met - Admin/Chairm an/Director Advise to Postpone/Res chedule or Not Proceed 08/27/2021 08/26/2022 1 1 Reason Comments Orders Repeat MRI 3-4 mo. A ddressed in 02/14 encounter Specialty Diagnoses / Procedures Referred By Leviac t Referred To Contact Pre Surg Testing [facility] Diagnoses [facility] Procedures OFFICE CONSULTATION NEW/ESTAB PATIENT 80 MIN COMPLETE PST Armani Anne MD [address] [place] [address] [facility] [address] [place] [address] Referral ID Status Reason Start Date Expiration Date Visits Re quested Visits Authorized [id number] Closed 08/27/2021 08/26/2022 1 1 Reason Comments Consult General Surgery Reason Comments Post-Op Visit Ms. Silver is here today for s/p cholecystectomy. Specialty Diagnoses / Procedures Referred By Blanca woodson Referred To Contact General Surgery / GENERAL SURGERY Diagnoses POST OP [facility] Procedures POST OP Luisito Shoemaker, [address] [place] [id number] Bernarda De La Torre APRN.DRAFTING LAYOUT WORKER [address] [place] [address] Referral ID Status Reason Start Date Expiration Date Visits Re quested Visits Authorized [id number] Closed 03/22/2022 06/20/2022 1 1 Specialty Diagnoses / Procedures Referred By Blanca woodson Referred To Contact MR IMAGING Diagnoses Chronic liver disease Procedures MRI LIVER WO/W IVCON MRI ABDOMEN W/O & W/CONTRAST MATERIAL Luisito Shoemaker, DO [address] [place] [address] Mr Imaging Referral ID Status Reason Start Date Expiration Date V isits Requested Visits Authorized [id number] Closed Auto-Generate d Referral 08/27/2021 08/26/2022 1 1 Reason Comments Refill Request Telephone Encounter - Edda Felix Lpn, LPN - 10/20/2020 1:20 PM ESTTelephone Encounter - Luisito Shoemaker - 10/20/2020 9:57 AM EST Miscellaneous Notes (unrecog nized section and content) Pharmacy added to chart, to send Rx. Margareth Lakhani [place] Yes . Need a pharmacy Pt had blood work by her ob-obstetrics/gynecology nurse and her thyroid numbers came back high. Pt is wondering if she should adjust her synthroid 150 mcg taking 1 per day? Her TSH came back 9.52 Margareth Rader documented in this encounter Care Teams (unrecognized sec tion and content) Playground Director Relationship Specialty Start Date End Date Luisito Shoemaker, DO [address] [place] [address] PCP - General Family Practice 10/19/20 Playground Director Relationship Specialty Start Date End Date Luisito Shoemaker, DO [address] [place] [address] PCP - General Family Practice 10/19/20 Playground Director Relationship Specialty Start Date End Date Luisito Shoemaker, DO [address] [place] [address] PCP - General Family Practice 10/19/20 Playground Director Relationship Specialty Start Date End Date Luisito Shoemaker, DO [address] [place] [address] PCP - General Family Practice 10/19/20 Playground Director Relationship Specialty Start Date End Date Luisito Shoemaker, DO [address] [place] [address] PCP - General Family Practice 10/19/20 Playground Director Relationship Specialty Start Date End Date Luisito Shoemaker, DO [address] [place] [address] PCP - General Family Practice 10/19/20 Playground Director Relationship Specialty Start Date End Date Luisito Shoemaker, DO [address] [place] [address] PCP - General Family Practice 10/19/20 Playground Director Relationship Specialty Start Date End Date Luisito Shoemaker, DO [address] [place] [address] PCP - General Family Practice 10/19/20 Playground Director Relationship Specialty Start Date End Date Luisito Shoemaker, DO [address] [place] [address] PCP - General Family Practice 10/19/20 Playground Director Relationship Specialty Start Date End Date Luisito Shoemaker DO [address] [place] [id number] PCP - General Family Practice 10/19/20 Playground Director Relationship Specialty Start Date End Date Luisito Shoemaker DO [address] [place] [id number] PCP - General Family Practice 10/19/20 Playground Director Relationship Specialty Start Date End Date Luisito Shoemaker [address] [place] [address] PCP - General Family Medicine 10/19/20 Playground Director Relationship Specialty Start Date End Date Luisito Shoemaker DO [address] [place] [id number] PCP - General Family Medicine 10/19/20 Playground Director Relationship Specialty Start Date End Date Luisito Shoemaker DO [address] [place] [id number] PCP - General Family Medicine 10/19/20 FOR RECORDS PERTAINING TO PATIENTS WHO ARE OR HAVE BEEN ENROLLED IN A CHEMICAL DEPENDENCY/SUBSTANCEABUSE PROGRAM, SOME INFORMATION MAY BE OMITTED. This clinical summary was aggregated from multiple sources. Caution should be exercised in using it in the provision of clinical care. This summary normalizes information from multiple sources, and as a consequence, information in this document may materially change the coding, format and clinical context of patient data. In addition, data may be omitted in some cases. CLINICAL DECISIONS SHOULD BE BASED ON THE PRIMARY CLINICAL RECORDS. [employer] [facility]. provides no warranty or guarantee of the accuracy or completeness of information in this document.
[2023-09-17 09:46] LABS: T4 Free Direct 1.17 ng/dL (0.76-1.46)
== END | disposition home or self-care (01) ==
LOC: PAVLAB 08:10
PROVIDERS: Visit Provider Internal Medicine Endocrinology, Diabetes & Metabolism
DX: O99.280 Endocrine, nutritional and metabolic diseases complicating pregnancy, unspecified trimester (principal); E07.9 Disorder of thyroid, unspecified; Z3A.00 Weeks of gestation of pregnancy not specified
CPT/HCPCS: 36415; 84439; 84443

== ENCOUNTER → 2023-10-22 | Outpatient (CLI) | payer OTHER, SELFPAY ==
--- OUTSIDE RECORDS SUMMARY | 2023-10-22 08:53 | XMS RPT_ITS | CCD ---
Author Name Unknown Address [address] [place] [address] Organization [facility] Care Team Providers Care Train Master Name Role Phone Luisito Shoemaker Unavailable Unavailable Luisito Shoemaker Unavailable Unavailable PROVIDER, UNKNOWN Unavailable Unavailable [facility] Primary [facility] Provider Winter [place] Devyn Primary Care Provider Winter MIR, [facility] Primary Care [facility] er Winter , [facility] er Winter DO, [facility] Primary Care [facility] er [facility] Primary Care ARMANI Martínez Referring Unavail able [facility] Primary Care Unavai lable WINTER, [facility] Referring Unavai BERNARDA Garcia Attending Unavailable [facility] Primary [facility] Unavai lable WINTER, [facility] Referring Unavai lable WINTER, [facility] Primary Care Unalisi ARMANI Gudino Admitting Unavail able ARMANI CHAMORRO Attending Unavail able ARMANI CHAMORRO Referring Unavail able [facility], [facility] Primary Care SheilavaARMANI Sparks Referring Unavail able ABRAHAM DAVID Referring UnavailANDREW Boyce Attending Unavailable [facility] Unavailable Allergies Allergy Classification Reported Allergen(s) Allergy Type Date of Onset Reaction(s) Facility (20 sources) Ibuprofen; Translations: [IBUPROFEN] Drug Allergy 11-03-2016 Angioedema, Rash, Swelling [facility] (20 sources) Naproxen; Translations: [NAPROXEN] Drug Allergy 11-03-2016 Angioedema, Swelling, Anaphylaxis [facility] Medications Completed/Discontinued Medications Medication Drug Class(es) [...] height 167.6 cm Bernarda De La Torre APRN.CNP Work Phone: [facility] 03-22-2022 12:57-0400 Body weight 73.94 kg Bernarda De La Torre APRN.CNP Work Phone: [facility] 03-22-2022 12:57-0400 Diastolic blood pressure 71 mm[Hg] Bernarda De La Torre APRN.CNP Work Phone: [facility] 03-22-2022 12:57-0400 Heart rate 92 /min Bernarda De La Torre APRN.CNP Work Phone: [facility] 03-22-2022 12:57-0400 SaO2% (BldA) [Mass fraction] 99 % Bernarda De La Torre APRN.CNP Work Phone: [facility] 03-22-2022 12:57-0400 Systolic blood pressure 104 mm[Hg] Bernarda De La Torre APRN.SAP TRAINER Work Phone: [facility] 03-09-2022 10:06-0400 Body height 167.6 cm Pst 1 [facility] 03-09-2022 10:06-0400 Body temperature 98.2 [degF] Pst 1 [facility] 03-09-2022 10:06-0400 Body weight 74.84 kg Pst 1 [facility] 03-09-2022 10:06-0400 Diastolic blood pressure 78 mm[Hg] Pst 1 [facility] 03-09-2022 10:06-0400 Heart rate 90 /min Pst 1 [facility] 03-09-2022 10:06-0400 Respiratory rate 18 /min Pst 1 [facility] 03-09-2022 10:06-0400 SaO2% (BldA) [Mass fraction] 100 % Pst 1 [facility] 03-09-2022 10:06-0400 Systolic blood pressure 117 mm[Hg] Pst 1 [facility] 01-09-2022 14:13-0400 Body height 167.6 cm Armani Chamorro MD Work Phone: [facility] 01-09-2022 14:13-0400 Body weight 77.11 kg Armani Chamorro MD Work Phone: [facility] 01-09-2022 14:13-0400 Diastolic blood pressure 67 mm[Hg] Armani Chamorro MD Work Phone: [facility] 01-09-2022 14:13-0400 Heart rate 74 /min Armani Chamorro MD Work Phone: [facility] 01-09-2022 14:13-0400 Respiratory rate 20 /min Armani Chamorro MD Work Phone: [facility] 01-09-2022 14:13-0400 Systolic blood pressure 113 mm[Hg] Armani Chamorro MD Work Phone: [facility] 12-14-2021 10:43-0400 Body height 167.6 cm [place] Winter DO Work Phone: [facility] 12-14-2021 10:43-0400 Body temperature 97.7 [degF] [place] Winter DO Work Phone: [facility] 12-14-2021 10:43-0400 Body weight 77.56 kg Luisito Winter DO Work Phone: [facility] 12-14-2021 10:43-0400 Diastolic blood pressure 78 mm[Hg] Luisito Winter DO Work Phone: [facility] 12-14-2021 10:43-0400 Heart rate 97 /min [place] Winter DO Work Phone: [facility] 12-14-2021 10:43-0400 SaO2% (BldA) [Mass fraction] 98 % [place] Winter DO Work Phone: [facility] 12-14-2021 10:43-0400 Systolic blood pressure 102 mm[Hg] [place] Winter DO Work Phone: [facility] 07-06-2021 13:40-0500 Body height 167.6 cm Roxie Figas DPM Work Phone: [facility] 07-06-2021 13:40-0500 Body weight 78.47 kg Roxie Figas DPM Work Phone: [facility] 07-06-2021 13:40-0500 Respiratory rate 17 /min Roxie Figas DPM Work Phone: [facility] 06-10-2021 14:00-0400 Body height 167.6 cm Roxie Figas DPM Work Phone: [facility] 06-10-2021 14:00-0400 Body weight 78.47 kg Roxie Figas DPM Work Phone: [facility] 06-10-2021 14:00-0400 Respiratory rate 20 /min Roxie Figas DPM Work Phone: [facility] 05-20-2021 13:32-0400 Body height 167.6 cm Roxie Figas DPM Work Phone: [facility] 05-20-2021 13:32-0400 Body weight 78.47 kg Roxie Figas DPM Work Phone: [facility] 05-20-2021 13:32-0400 Respiratory rate 16 /min Roxie Figas DPM Work Phone: [facility] Encounters Encounter Date Encounter Type Care Provider Facility Start: 10-04-2023 End: 10-04-2023 ambulatory ABRAHAM DAVID [facility] Start: 03-02-2023 Telephone encounter [place] Yanet Shoemaker DO Work Phone: [facility] [place] Procedures Date Procedure Procedure Detail Performing Clinician Start: 12-19-2021 Us abdominal real ti me w/image limited [place] Devyn Shoemaker DO Work Phone: Start: 07-06-2021 Radex foot complete minimum 3 views Roxie Figas DPM Work Phone: Start: 06-10-2021 Radex foot complete minimum 3 views Roxie Figas DPM Work Phone: Start: 05-20-2021 Radex foot complete minimum 3 views Roxie Figas DPM Work Phone: Start: 05-16-2021 Radex foot complete minimum 3 views [place] Devyn Shoemaker DO Work Phone: Start: 05-16-2021 Adult depression scr eening assessment [facility] Start: 12-27-2020 EXTERNAL IMAGING Supervisor Travel Trailer al Provider Start: 12-27-2020 EXTERNAL LAB External P rovider Start: 12-02-2020 EXTERNAL LAB External P rovider Start: 11-19-2020 EXTERNAL IMAGING Supervisor Travel Trailer al Provider History of cholecystectomy S/P jocelin C kurtis De La Torre APRN.SAP TRAINER Work Phone: Plan of Treatment Date Care Activity Detail Author Start: 04-27-2023 Influenza vaccination INFLUENZA (#1) [facility] Start: 08-27-2022 DEPRESSION ASSESSMENT DEPRESSION ASSESSMENT [facility] Start: 05-16-2022 Adult depression screening assessment DEPRESSION SCREENING [facility] Start: 04-27-2022 Influenza vaccination [facility] Start: 02-28-2022 End: 04-30-2022 Alanine aminotransferase [Enzymatic activity/volume] in Serum or Plasma ALT/SGPT Lab Routine Calculus of gallbladder with chronic cholecystitis without obstruction Liver lesion Expected: 02/28/2022, Expires: 04/30/2022 [facility] Work Phone: Payers Date Payer Category Payer Unknown 2021 Unknown [employer] PPO [id number] 2021-Present [phone] [address] [place] [address] PPO [id number] 2021 Unknown [id number] 2009 Unknown [id number] 1995 Unknown [id number] 1995 Unknown [id number] Social History Date Type Detail Facility Tobacco smoking status WYIS Unknown if ev er smoked [facility] Start: 1995 Sex Assigned At Not on file [facility] Start: 05-13-2021 Tobacco smoking status [facility] Unknown if ever smoked [facility] Start: 05-16-2021 End: 06-10-2021 Tobacco smoking status NHIS Never smoker [facility] Start: 05-16-2021 End: 06-10-2021 Tobacco use and exposure Never used [facility] Start: 05-16-2021 End: 03-22-2022 Alcohol intake Current drinker of alcohol (finding) [facility] Start: 05-16-2021 Alcohol Comment social [facility] Start: 12-09-2021 End: 03-22-2022 Exposure to SARS-CoV-2 (event) Not sure [facility] Start: 03-22-2022 End: 09-19-2022 History of Social function [facility] Start: 03-22-2022 End: 09-19-2022 Tobacco use panel [facility] Adult Depression Scr eening Assessment 0 [facility] Clinical Notes 05-16-2021 to 03-02-2023 Telephone Encounter - Nicole Campos LPN - 03/02/2023 11:39 AM EDTTelephone Encounter - Nicole Campos LPN - 03/02/2023 11:39 AM EDTMRT Steve(R) - 06/02/2022 9:00 AM EDT Note Date & Type Note Facility 03-02-2023 Miscellaneous Notes Called patient who advised she sees her [place], Dr. Krunal Jay for her thyroid ----- Message from Luisito Shoemaker DO sent at 03/02/2023 11:20 AM EDT ----- Somebody else managing thyroid. Correct? documented in this encounter [facility] 06-02-2022 Note HNO ID: [id number] Author: RT Veronica(R) Service: Radiology Author Type: Technologist Type: Progress [...] (routine) SIGNATURE: Rich Corrigan RT(R) PATIENT NAME: Meron Silver DATE: June 02, 2022 TIME: 9:01 AM [facility] 06-02-2022 History of Present illness Narrative [...] (routine) SIGNATURE: Rich Corrigan RT(R) PATIENT NAME: Meron Silver DATE: June 02, 2022 TIME: 9:01 AM documented in this encounter [facility] 05-22-2022 Miscellaneous Notes Pt requesting a refill of Levothyroxine 150mcg 1 daily. Please send to Kar Hendricks documented in this encounter [facility] 03-22-2022 Note HNO ID: [id number] Author: Bernarda De La Torre APRN.SAP TRAINER Service: ? Author Type: Nurse Practitioner Type: Progress Notes Filed: 03/22/2022 1:36 PM Note Text: Meron Silver is a 26 year old female [...] reactive (more content not included)... [facility] 03-22-2022 History of Present illness Narrative Images from the original note were not included. Meron Silver is a 26 year old female [...] History of gallstones S/p jocelin Dizziness Plan: Meron Silver is a 26 year old female [...] which included preparing to see the patient, [id number] patient care, completing clinical documentation, obtaining and/or reviewing separately obtained history, performing a medically appropriate examination and communicating with other HCPs (not separately reported). documented in this encounter [facility] 03-22-2022 Instructions Bernarda De La Torre APRN.CNP - 03/22/2022 1:00 PM EDT SIGNS OF INFECTION: 1. Contact the office if you see any drainage from the wound that is yellow, green or has an odor, or is bleeding through dressings. [place] tinged or yellow CLEAR fluid can be [...] further evaluation. 6. documented in this encounter [facility] 03-16-2022 Note HNO ID: [id number] Author: Janine Anton RN Service: ? Author Type: Registered Nurse Type: Nursing Progress Note Filed: 03/16/2022 4:47 PM Note Text: Pt given IS and instructed on use, able to return demonstrate proper technique. [facility] 03-16-2022 Note HNO ID: [id number] Author: Jose Mcknight APRN.METER CALIBRATOR Service: Anesthesiology Author Type: Nurse Installer Metal Flooring Type: Anesthesia Procedure Notes Filed: 03/16/2022 1:48 PM Note Text: ANESTHESIOLOGY PROCEDURE NOTE Gastric Tube General Information Procedure Start Time/Medication Administration: 03/16/2022 1:25 PM Patient location during procedure: OR Timeout Performed Pre-procedure: timeout performed Consent Obtained: Yes Patient identity confirmed: arm band and patient sedated or unresponsive Indication: gastric decompression Staffing METER CALIBRATOR: Jose Mcknight APRN.METER CALIBRATOR Performed by: JUDY Procedure Details Type: Orogastric tube Cortrak monitor used: Yes Size: 18 Fr cm Distance Advanced: 50 cm Initial Auscultation Appears Confirmatory: Yes Securement: taped to the cheek Successful Placement: yes Post-Procedure Details Patient tolerated the procedure well with no immediate complications SIGNATURE: Jose Mcknight APRN.CRNA PATIENT NAME: Meron Silver DATE: March 16, 2022 TIME: 1:47 PM CSN: [id number] [facility] 03-16-2022 Note HNO ID: [id number] Author: Jose Mcknight APRN.CRNA Service: Anesthesiology Author Type: Nurse Installer Metal Flooring Type: Anesthesia Procedure Notes Filed: 03/16/2022 1:39 PM Note Text: ANESTHESIOLOGY PROCEDURE NOTE Airway General Information Procedure Start Time/Medication Administration: 03/16/2022 1:24 PM Patient location during procedure: OR Timeout Performed Pre-procedure: timeout performed Consent Obtained: Yes Patient identity confirmed: arm band Staffing Anesthesiologist: Coy Aguilar MD METER CALIBRATOR: Jose Mcknight APRN.METER CALIBRATOR Performed by: JUDY Indications and Patient Condition [...] no Airway not difficult SIGNATURE: Jose Mcknight APRN.CRNA PATIENT NAME: Meron Silver DATE: March 16, 2022 TIME: 1:38 PM CSN: [id number] [facility] 03-09-2022 History and physical note HISTORY AND PHYSICAL EXAMINATION SERVICE DATE: 03/06/2022 SERVICE TIME: 10:18 AM PRIMARY CARE PHYSICIAN: Luisito Shoemaker DO REASON FOR VISIT: Meron Silver is a 26 year old female [...] HPI: 26 year old female presents to PST in preparation for a laparoscopic cholecystectomy with [...] requiring medication, no history of angina, CHF, [place], cardiac surgery or stents. Denies rest pain, gangrene or revascularization/amputation for PVD. No history of cardiovascular symptoms or problems. Negative for: anticoagulation therapy, arrhythmia, CAD, chest pain, CHF, DVT/PE, hyperlipidemia, hypertension and murmur/valvular heart disease. GI: See HPI Negative for: GERD. : Negative for: dysuria, frequent urination, hematuria and urinary incontinence. APARTMENT LOCATOR: Negative for abnormal vaginal bleeding, abnormal vaginal [...] of breath with the above physical activity. [id number] Score:[id number] Score: 0 ARISCAT Score: Age: <=50 Preoperative [...] PATIENT. SIGNATURE: Margarette Bender PA-C PATIENT NAME: Meron Silver DATE: March 06, 2022 TIME: 3:38 PM PAGER/CONTACT #: documented in this encounter [facility] 03-09-2022 Instructions Yolie Stovall APRN.CNP - 03/09/2022 10:00 AM EDT PATIENT PREOPERATIVE INSTRUCTIONS * has scheduled you for your procedure at this surgery center: [facility]: [phone], [address] [address] Please enter through the main entrance and proceed to the blue elevators. The surgery [facility] center is located to the left of [...] surgery. - YOU MUST HAVE A RESPONSIBLE PATIENT OBSERVER TAKE YOU HOME. A LINE THERAPIST, CAB OR UBER PATIENT OBSERVER CANNOT BE MADE A RESPONSIBLE PATIENT OBSERVER. - We recommend that a responsible person [...] instructgions and will then be instructed for roll picker directions. *Call your surgeon's office if covid [...] surgery. - Orthopedic patients having surgery [facility] listed as outpatient should bring their walker into the building. - Orthopedic patients having surgery [facility] listed as to be admitted should leave their walkers in the car or with a family member. Yolie Stovall APRN.CNP 03/09/22 documented in this encounter [facility] 02-14-2022 Miscellaneous Notes ` documented in this encounter [facility] 01-11-2022 History of Present illness Narrative Meron Silver is a 26 year old White [...] 175 mcg by mouth once daily. Sun- Sun. None on Sunday ) ENSKYCE 0.15-0.03 mg [...] Chamorro M.D., F.A.C.S. documented in this encounter [facility] 01-09-2022 Instructions Armani Chamorro MD - [...] laparoscopic cholecystectomy? Less discomfort than regular surgery [facility] stay, with a quicker recovery time [...] closed using surgical clips and stitches. References [employer]. Cholecystectomy Accessed 03/03/2016. [employer]. Laparoscopic Gallbladder Removal (Patient Information from [facility] Accessed 03/03/2016. Copyright 0024-1325 [facility]. All rights reserved documented in this encounter [facility] 12-21-2021 Miscellaneous Notes See [employer] message from 12/19/21. Also patient is scheduled for 01/09/22 with general surgeon ----- Message from Luisito Shoemaker DO sent at 12/21/2021 2:07 PM EDT ----- gallstones documented in this encounter [facility] 12-20-2021 Miscellaneous Notes Confirmation number: [id number] documented in this encounter [facility] 12-19-2021 History of Present illness Narrative Radiology Service Progress Note PATIENT NAME: Meron Silver DATE OF SERVICE: December 19, 2021 [...] 2021 11:06 AM documented in this encounter [facility] 12-14-2021 History of Present illness Narrative Images from the original note were not included. [facility] [address] [place] [address] Date of Evaluation: 12/14/2021 Patient Name: Meron Silver : 1995 Chief Complaint: Patient presents with: Hospital Follow Up: [facility] follow up Nursing Intake: There are no exam notes on file for this visit. Subjective Ms. Silver is a 26 year old female who presents with the following complaint(s): The history is provided by the patient. No low vision therapist was used. Abdominal Pain This is a [...] - OMEPRAZOLE 40 MG CAPSULE,DELAYED RELEASE Luisito Shoemaker, DO' Return if symptoms worsen or fail to improve. Attestation: Scribe Statement: Brooke Zavala am scribing for, and in the presence of, Luisito Shoemaker DO December 14, 2021 10:54 AM. Physician Statement: I, Luisito Shoemaker DO, personally performed the services described in the documentation, as scribed by Luisa Murray in my presence, and it is both accurate and complete December 14, 2021 10:57 AM. documented in this encounter [facility] 07-06-2021 History of Present illness Narrative [...] clots, bleeding disorders. documented in this encounter [facility] 06-10-2021 History of Present illness Narrative [...] lb) BMI 27.92 kg/m [facility]. V[facility]: DP and PT pulses are [...] Gallegos DPM AACFAS documented in this encounter [facility] 05-20-2021 History of Present illness Narrative [...] Denies any other pedal complaints. Luisito Shoemaker, DO PAST MEDICAL HISTORY Diagnosis Date Dysmenorrhea [...] to go to our [place] office to roll picker a short boot - Advised patient to [...] clots, bleeding disorders. documented in this encounter [facility] 05-18-2021 Miscellaneous Notes Patient updated. Left message to call office back for results and update. Stay off foot Ortho consult written Patient saw her results from xray of her right foot from this morning. Wanting to know what to do now? Please advise. documented in this encounter [facility] 05-16-2021 History of Present illness Narrative Radiology Service Progress Note PATIENT NAME: Meron Silver DATE OF SERVICE: May 16, 2021 [...] 2021 10:27 AM documented in this encounter [facility] Fracture- Primary Closed fracture of unspecified bone [facility] Diagnosis Closed displaced fracture of fifth metatarsal bone of right foot, initial encounter- Primary [facility] Diagnosis Closed displaced fracture of fifth metatarsal bone of right foot with routine healing, subsequent encounter- Primary [facility] Diagnosis Closed displaced fracture of fifth metatarsal bone of right foot with routine healing, subsequent encounter- Primary [facility] Diagnosis RUQ pain- Primary Abdominal pain, right upper quadrant GERD without esophagitis Esophageal reflux [facility] Diagnosis RUQ pain Abdominal pain, right upper quadrant [facility] Diagnosis Gallstones- Primary Calculus of gallbladder without mention of cholecystitis or obstruction [facility] Diagnosis Right upper quadrant pain- Primary Abdominal pain, right upper quadrant [facility] Diagnosis Calculus of gallbladder with chronic cholecystitis without obstruction- Primary Calculus of gallbladder with other cholecystitis, without mention of obstruction Liver lesion Other specified disorders of liver [facility] Diagnosis Right upper quadrant pain Abdominal pain, right upper quadrant [facility] Diagnosis Chronic liver disease Unspecified chronic liver disease without mention of alcohol [facility] Diagnosis Calculus of gallbladder with chronic cholecystitis without obstruction- Primary Calculus of gallbladder with other cholecystitis, without mention of obstruction Liver lesion Other specified disorders of liver Calculus of gallbladder with chronic cholecystitis without obstruction Calculus of gallbladder with other cholecystitis, without mention of obstruction Liver lesion Other specified disorders of liver [facility] Diagnosis Preop examination Preoperative examination, unspecified [...] disorders of liver [facility] Diagnosis Postop check- Primary Follow-up examination, following unspecified surgery History of gallstones Personal history of other diseases of digestive system S/P jocelin Other acquired absence of organ Dizziness Dizziness and giddiness [facility] Diagnosis Chronic liver disease Unspecified chronic liver disease without mention of alcohol documented in this encounter [facility] for referral (narrative)* Diagnostic Procedure Only (Routine) Status Reason Specialty Diagnoses / Procedures Referred By Contact Referred To Contact Closed Auto-Generated Referral XR IMAGING Diagnoses Right foot pain Procedures XR FOOT GENERAL 3V AP/LAT/OBL RT X-RAY FOOT MINIMUM 3 VIEWS Luisito Shoemaker DO [address] [place] [address] Xr Imaging [facility] for referral (narrative)* Diagnostic Procedure Only (Routine) Status Reason Specialty Diagnoses / Procedures Referred By Contact Referred To Contact Pending Review Auto-Generated Referral XR IMAGING Diagnoses Closed displaced fracture of fifth metatarsal bone of right foot, initial encounter Procedures XR FOOT GENERAL 3V AP/LAT/OBL RT X-RAY FOOT MINIMUM 3 VIEWS Roxie Gallegos DPM [address] [place] [address] Xr Imaging [facility] for referral (narrative)* Diagnostic Procedure Only (Routine) Status Reason Specialty Diagnoses / Procedures Referred By Contact Referred To Contact Pending Review Auto-Generated Referral XR IMAGING Diagnoses Closed displaced fracture of fifth metatarsal bone of right foot with routine healing, subsequent encounter Procedures XR FOOT GENERAL 3V AP/LAT/OBL RT X-RAY FOOT MINIMUM 3 VIEWS Roxie Gallegos DPM [address] [place] [address] Xr Imaging [facility] for referral (narrative)* Diagnostic Procedure Only (Routine) - Pending Review Specialty Diagnoses / Procedures Referred By Contac t Referred To Contact XR IMAGING Diagnoses Closed displaced fracture of fifth metatarsal bone of right foot with routine healing, subsequent encounter Procedures XR FOOT GENERAL 3V AP/LAT/OBL RT X-RAY FOOT MINIMUM 3 VIEWS Roxie Gallegos DPM [address] [place] [address] Xr Imaging Referral ID Status Reason Start Date Expiration Date Visits Requested Visits Authorized [id number] Pending Review Auto-Generat ed Referral 08/05/2022 1 [facility] [facility] [place] for referral (narrative)* Diagnostic Procedure Only (Routine) - Closed Specialty Diagnoses / Procedures Referred By Contac t Referred To Contact US IMAGING Diagnoses RUQ pain Procedures US ABD RT UPPER QUADRANT US ABDOMINAL REAL TIME W/IMAGE LIMITED Luisito Shoemaker, [place] [address] Us Imaging Referral ID Status Reason Start Date Expiration Date V isits Requested Visits Authorized [id number] Closed Auto-Generate d Referral 08/27/2021 08/26/2022 1 1 [facility] for referral (narrative)* Diagnostic Procedure Only (Routine) - Closed Specialty Diagnoses / Procedures Referred By Contac t Referred To Contact US IMAGING Diagnoses RUQ pain Procedures US ABD RT UPPER QUADRANT US ABDOMINAL REAL TIME W/IMAGE LIMITED Luisito Shoemaker, [place] [address] Us Imaging Referral ID Status Reason Start Date Expiration Date V isits Requested Visits Authorized [id number] Closed Auto-Generate d Referral 08/27/2021 08/26/2022 1 1 T [facility] for visit Narrative* Diagnostic Procedure Only (Routine) Status Reason Specialty Diagnoses / Procedures Referred By Contact Referred To Contact Closed Auto-Generated Referral XR IMAGING Diagnoses Right foot pain Procedures XR FOOT GENERAL 3V AP/LAT/OBL RT X-RAY FOOT MINIMUM 3 VIEWS Luisito Shoemaker, [place] [address] Xr Imaging [facility] for visit Narrative* Diagnostic Procedure Only (Routine) - Closed Specialty Diagnoses / Procedures Referred By Contac t Referred To Contact US IMAGING Diagnoses RUQ pain Procedures US ABD RT UPPER QUADRANT US ABDOMINAL REAL TIME W/IMAGE LIMITED Charmaine Shoemakerland Devyn, [place] [address] Us Imaging Referral ID Status Reason Start Date Expiration Date V isits Requested Visits Authorized [id number] Closed Auto-Generate d Referral 08/27/2021 08/26/2022 1 1 [facility] Summary Purpose Family History No Family History Records FoundNo Family History Records FoundNo Family History Records FoundNo Family History Records FoundNo Family History Records Found Advance Directives No Advanced Directives Records FoundDocuments on File Type Date Recorded 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 Advance Directive(s) 03/16/2022 10:14 AM Reason for Referral Status Reason Specialty Diagnoses / Procedures Referred By Contact Referred To Contact Authorized PCP Requested Referral Orthopedics Diagnoses Fracture Procedures CONSULT TO ORTHOPAEDICS NEW PATIENT VISIT LEVEL 5 [place] [address] Specialty Diagnoses / Procedures Referred By Contac t Referred To Contact MR IMAGING Diagnoses Gallstones Procedures MRI LIVER WO IVCON MRI, ABDOMEN (MRI) Luisito Shoemaker, [place] [address] Mr Imaging Referral ID Status Reason Start Date Expiration Date Visits Requested Visits Authorized [id number] Pending Review Auto-Generat ed Referral 12/20/2021 01/19/2023 1 1 Specialty Diagnoses / Procedures Referred By Contac t Referred To Contact General Surgery Diagnoses Gallstones Procedures CONSULT TO GENERAL SURGERY OFFICE/OUTPATIENT [facility] MDM 60-74 MINUTES [place] Dev[place], [place] [address] Referral ID Status Reason Start Date Expiration Date Visits Requested Visits Authorized [id number] Pending Review PCP Requested Referral 12/20/2021 12/20/2022 1 1 Specialty Diagnoses / Procedures Referred By Contac t Referred To Contact MR IMAGING Diagnoses Right upper quadrant pain Procedures MRI 3D POST PROCESSING 3D RENDERING W/INTERP&POSTPROC DIFF WORK STATION Charmaine Shoemakerland Devyn, DO [address] [place] [address] Mr Imaging Referral ID Status Reason Start Date Expiration Date Visits Requested Visits Authorized [id number] Pending Review Auto-Generat ed Referral 01/06/2022 02/05/2023 1 1 Specialty Diagnoses / Procedures Referred By Contac t Referred To Contact MR IMAGING Diagnoses Right upper quadrant pain Procedures MRI LIVER WO/W IVCON MRI ABDOMEN W/O & W/CONTRAST MATERIAL Charmaine Shoemakerland Devyn, DO [address] [place] [address] Mr Imaging Referral ID Status Reason Start Date Expiration Date Visits Requested Visits Authorized [id number] Pending Review Auto-Generat ed Referral 01/06/2022 02/05/2023 1 1 Specialty Diagnoses / Procedures Referred By Contac t Referred To Contact MR IMAGING Diagnoses Chronic liver disease Procedures MRI LIVER WO/W IVCON MRI ABDOMEN W/O & W/CONTRAST MATERIAL Charmaine Shoemakerland Devyn, DO [address] [place] [address] Mr Imaging Referral ID Status Reason Start Date Expiration Date Visits Requested Visits Authorized [id number] Pending Review Auto-Generat ed Referral 02/14/2022 03/16/2023 1 1 Referral ID Status Reason Start Date Expiration Date V isits Requested Visits Authorized [id number] Closed Auto-Generate d Referral 08/27/2021 08/26/2022 1 1 Additional Source Comments INFORMATION SOURCE (unrecogn ized section and content) DATE CREATED AUTHOR AUTHOR'S ORGANIZ ATION 10/21/2019 [facility] ([place]) DATE CREATED AUTHOR AUTHOR'S ORGANIZ ATION 10/22/2020 [facility] DATE CREATED AUTHOR AUTHOR'S ORGANIZ ATION 03/07/2023 [facility] DATE CREATED AUTHOR AUTHOR'S ORGANIZ ATION 10/06/2023 [facility] Source Comments (unrecognize d section and content) In the event this informatio n is protected by the Federal Confidentiality of Alcohol and Drug Abuse Patient Records regulations: The Federal rules restrict any use of the information to criminally investigate or prosecute any alcohol or drug abuse patient.[facility] the event this information is protected by the Federal Confidentiality of Alcohol and Drug Abuse Patient Records regulations: The Federal rules restrict any use of the information to criminally investigate or prosecute any alcohol or drug abuse patient.[facility] the event this information is protected by the Federal Confidentiality of Alcohol and Drug Abuse Patient Records regulations: The Federal rules restrict any use of the information to criminally investigate or prosecute any alcohol or drug abuse patient.[facility] the event this information is protected by the Federal Confidentiality of Alcohol and Drug Abuse Patient Records regulations: The Federal rules restrict any use of the information to criminally investigate or prosecute any alcohol or drug abuse patient.[facility] the event this information is protected by the Federal Confidentiality of Alcohol and Drug Abuse Patient Records regulations: The Federal rules restrict any use of the information to criminally investigate or prosecute any alcohol or drug abuse patient.[facility] the event this information is protected by the Federal Confidentiality of Alcohol and Drug Abuse Patient Records regulations: The Federal rules restrict any use of the information to criminally investigate or prosecute any alcohol or drug abuse patient.[facility] the event this information is protected by the Federal Confidentiality of Alcohol and Drug Abuse Patient Records regulations: The Federal rules restrict any use of the information to criminally investigate or prosecute any alcohol or drug abuse patient.[facility] the event this information is protected by the Federal Confidentiality of Alcohol and Drug Abuse Patient Records regulations: The Federal rules restrict any use of the information to criminally investigate or prosecute any alcohol or drug abuse patient.[facility] the event this information is protected by the Federal Confidentiality of Alcohol and Drug Abuse Patient Records regulations: The Federal rules restrict any use of the information to criminally investigate or prosecute any alcohol or drug abuse patient.[facility] the event this information is protected by the Federal Confidentiality of Alcohol and Drug Abuse Patient Records regulations: The Federal rules restrict any use of the information to criminally investigate or prosecute any alcohol or drug abuse patient.[facility] the event this information is protected by the Federal Confidentiality of Alcohol and Drug Abuse Patient Records regulations: The Federal rules restrict any use of the information to criminally investigate or prosecute any alcohol or drug abuse patient.[facility] the event this information is protected by the Federal Confidentiality of Alcohol and Drug Abuse Patient Records regulations: The Federal rules restrict any use of the information to criminally investigate or prosecute any alcohol or drug abuse patient.[facility] the event this information is protected by the Federal Confidentiality of Alcohol and Drug Abuse Patient Records regulations: The Federal rules restrict any use of the information to criminally investigate or prosecute any alcohol or drug abuse patient.[facility] the event this information is protected by the Federal Confidentiality of Alcohol and Drug Abuse Patient Records regulations: The Federal rules restrict any use of the information to criminally investigate or prosecute any alcohol or drug abuse patient.[facility] the event this information is protected by the Federal Confidentiality of Alcohol and Drug Abuse Patient Records regulations: The Federal rules restrict any use of the information to criminally investigate or prosecute any alcohol or drug abuse patient.[facility] the event this information is protected by the Federal Confidentiality of Alcohol and Drug Abuse Patient Records regulations: The Federal rules restrict any use of the information to criminally investigate or prosecute any alcohol or drug abuse patient.[facility] the event this information is protected by the Federal Confidentiality of Alcohol and Drug Abuse Patient Records regulations: The Federal rules restrict any use of the information to criminally investigate or prosecute any alcohol or drug abuse patient.[facility] HospitalIn the event this information is protected by the Federal Confidentiality of Alcohol and Drug Abuse Patient Records regulations: The Federal rules restrict any use of the information to criminally investigate or prosecute any alcohol or drug abuse patient.[facility] Hospital[facility] the event this information is protected by the Federal Confidentiality of Alcohol and Drug Abuse Patient Records regulations: The Federal rules restrict any use of the information to criminally investigate or prosecute any alcohol or drug abuse patient.[facility] Hospital[facility] the event this information is protected by the Federal Confidentiality of Alcohol and Drug Abuse Patient Records regulations: The Federal rules restrict any use of the information to criminally investigate or prosecute any alcohol or drug abuse patient.[facility] HospitalIn the event this information is protected by the Federal Confidentiality of Alcohol and Drug Abuse Patient Records regulations: The Federal rules restrict any use of the information to criminally investigate or prosecute any alcohol or drug abuse patient.[facility] HospitalIn the event this information is protected by the Federal Confidentiality of Alcohol and Drug Abuse Patient Records regulations: The Federal rules restrict any use of the information to criminally investigate or prosecute any alcohol or drug abuse patient.[facility] HospitalIn the event this information is protected by the Federal Confidentiality of Alcohol and Drug Abuse Patient Records regulations: The Federal rules restrict any use of the information to criminally investigate or prosecute any alcohol or drug abuse patient.[facility] HospitalIn the event this information is protected by the Federal Confidentiality of Alcohol and Drug Abuse Patient Records regulations: The Federal rules restrict any use of the information to criminally investigate or prosecute any alcohol or drug abuse patient.[facility]In the event this information is protected by the Federal Confidentiality of Alcohol and Drug Abuse Patient Records regulations: The Federal rules restrict any use of the information to criminally investigate or prosecute any alcohol or drug abuse patient.[facility] HospitalIn the event this information is protected by the Federal Confidentiality of Alcohol and Drug Abuse Patient Records regulations: The Federal rules restrict any use of the information to criminally investigate or prosecute any alcohol or drug abuse patient.[facility] Reason for Visit (unrecogniz ed section and content) Reason Comments Results Reason Comments New Status Reason Specialty Diagnoses / Procedures Referred By Contact Referred To Contact Closed PCP Requested Referral Orthopedics Diagnoses Fracture Procedures CONSULT TO ORTHOPAEDICS NEW PATIENT VISIT LEVEL 5 Luisito Shoemaker DO [address] [place] [address] Reason Comments Follow Up Pain Fracture Reason Comments Follow Up Reason Comments Hospital Follow Up [facility] low up Specialty Diagnoses / Procedures Referred By Blanca woodson Referred To Contact Family Practice / FAMILY MEDICINE Diagnoses [facility] ED ON 12/13 FOR GALLBLADDER CONCERNS (DRZ) Procedures 4C EST HOSP/ER FU Luisito Shoemaker, DO [address] [place] [address] Luisito Shoemaker, DO [address] [place] [address] Referral ID Status Reason Start Date Expiration Date Visits Requested Visits Authorized [id number] Authorized Patient Cleared - INN Insurance Found 12/14/2021 03/14/2022 99 99 Reason Comments Results Reason Comments New Patient GALL BLADDER Specialty Diagnoses / Procedures Referred By Contac t Referred To Contact General Surgery / GENERAL SURGERY Diagnoses Follow-up exam gallstones Procedures OFFICE/OUTPATIENT NEW MODERATE MDM 45-59 MINUTES NEW PATIENT Luisito Shoemaker, DO [address] [place] [address] Armani Chamorro MD [address] [address] Referral ID Status Reason Start Date Expiration Date Visits Re quested Visits Authorized [id number] Closed 08/27/2021 08/26/2022 1 1 Specialty Diagnoses / Procedures Referred By Contac t Referred To Contact MR IMAGING Diagnoses Right upper quadrant pain Procedures MRI LIVER WO/W IVCON MRI ABDOMEN W/O & W/CONTRAST MATERIAL Luisito Shoemaker, [place] [address] Mr Imaging Referral ID Status Reason Start Date Expiration Date V isits Requested Visits Authorized [id number] Closed Auto-Generat ed Referral Clearance Not Met - Admin/Chairm an/Director Advise to Postpone/Res chedule or Not Proceed 08/27/2021 08/26/2022 1 1 Reason Comments Orders Repeat MRI 3-4 mo. A ddressed in 02/14 encounter Specialty Diagnoses / Procedures Referred By Contac t Referred To Contact Pre Surg Testing [facility] Diagnoses LAP JOCELIN Procedures OFFICE CONSULTATION NEW/ESTAB PATIENT 80 MIN COMPLETE PST Armani Anne MD [address] [place] [address] Pre Surg Testing [facility] [address] [place] [address] Referral ID Status Reason Start Date Expiration Date Visits Re quested Visits Authorized [id number] Closed 08/27/2021 08/26/2022 1 1 Reason Comments Consult General Surgery Reason Comments Post-Op Visit Ms. Silver is here today for s/p cholecystectomy. Specialty Diagnoses / Procedures Referred By Blanca t Referred To Contact General Surgery / GENERAL SURGERY Diagnoses POST OP LAP JOCELIN Procedures POST OP Charmaine Shoemakerland Devyn, [address] [address] Bernarda De La Torre APRN.[employer] TRAINER [address] [place] [address] Referral ID Status Reason Start Date Expiration Date Visits Re quested Visits Authorized [id number] Closed 03/22/2022 06/20/2022 1 1 Specialty Diagnoses / Procedures Referred By Blanca woodson Referred To Contact MR IMAGING Diagnoses Chronic liver disease Procedures MRI LIVER WO/W IVCON MRI ABDOMEN W/O & W/CONTRAST MATERIAL Luisito Shoemaker, [address] [address] Mr Imaging Referral ID Status Reason Start Date Expiration Date V isits Requested Visits Authorized [id number] Closed Auto-Generate d Referral 08/27/2021 08/26/2022 1 1 Reason Comments Refill Request Telephone Encounter - Edda Felix Lpn, LPN - 10/20/2020 1:20 PM ESTTelephone Encounter - Luisito Shoemaker - 10/20/2020 9:57 AM EST Miscellaneous Notes (unrecog nized section and content) Pharmacy added to chart, [place] . 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 Pt is wondering if she should adjust her synthroid 150 mcg taking 1 per day? Her TSH came back 9.52 Sagle Kar Rader documented in this encounter Care Teams (unrecognized sec tion and content) Train Master Relationship Specialty Start Date End Date WinterCharmaineLuisitojavier Shepard, DO [address] [place] [address] PCP - General Family Practice 10/19/20 Train Master Relationship Specialty Start Date End Date Luisito Shoemaker, DO [address] [place] [address] PCP - General Family Practice 10/19/20 Train Master Relationship Specialty Start Date End Date Luisito Shoemaker, DO [address] [place] [address] PCP - General Family Practice 10/19/20 Train Master Relationship Specialty Start Date End Date Luisito Shoemaker, DO [address] [place] [id number] PCP - General Family Practice 10/19/20 Train Master Relationship Specialty Start Date End Date Luisito Shoemaker, DO [address] [place] [address] PCP - General Family Practice 10/19/20 Train Master Relationship Specialty Start Date End Date Luisito Shoemaker, DO [address] [place] [address] PCP - General Family Practice 10/19/20 Train Master Relationship Specialty Start Date End Date Luisito Shoemaker, DO [address] [place] [address] PCP - General Family Practice 10/19/20 Train Master Relationship Specialty Start Date End Date Luisito Shoemaker DO [address] [place] [id number] PCP - General Family Practice 10/19/20 Train Master Relationship Specialty Start Date End Date Luisito Shoemaker DO [address] [place] [address] PCP - General Family Practice 10/19/20 Train Master Relationship Specialty Start Date End Date Luisito Shoemaker DO [address] [place] [address] PCP - General Family Practice 10/19/20 Train Master Relationship Specialty Start Date End Date Luisito Shoemaker DO [address] [place] [address] PCP - General Family Practice 10/19/20 Train Master Relationship Specialty Start Date End Date Luisito Shoemaker DO [address] [place] [address] PCP - General Family Medicine 10/19/20 Train Master Relationship Specialty Start Date End Date Luisito Shoemaker DO [address] [place] [address] PCP - General Family Medicine 10/19/20 Train Master Relationship Specialty Start Date End Date Luisito Shoemaker DO [address] [place] [address] PCP - General Family Medicine 10/19/20 FOR [...] BE BASED ON THE PRIMARY CLINICAL RECORDS. [facility]. provides no warranty or guarantee of the accuracy or completeness of information in this document.
[2023-10-22 13:32] LABS: T4 Free Direct 1.24 ng/dL (0.76-1.46); Thyroid Stim Hormone (TSH) 1.29 uIU/mL (0.358-3.74)
== END | disposition home or self-care (01) ==
LOC: BIMLAB 08:30
PROVIDERS: Referring Provider Internal Medicine Endocrinology, Diabetes & Metabolism; Visit Provider Internal Medicine Endocrinology, Diabetes & Metabolism
DX: O99.280 Endocrine, nutritional and metabolic diseases complicating pregnancy, unspecified trimester (principal); E07.9 Disorder of thyroid, unspecified; Z3A.00 Weeks of gestation of pregnancy not specified
CPT/HCPCS: 36415; 84439; 84443

== ENCOUNTER 2023-12-02 22:00 | Emergency (ER) | payer OTHER, SELFPAY ==
[2023-12-02 22:01] VITALS: BP 127/77; PULSE 100; RESP 18; TEMP 36.9; O2SAT 97; BMI 29.9
[2023-12-02 22:23] LABS: Mucous, Urine 0 SEEN /hpf (<or=2+)
--- NOTE | 2023-12-02 22:23 | CT_ITS ---
INDICATION: left kidney stone - pt is 26 wk preg EXAMINATION: CT ABDOMEN AND PELVIS WITHOUT CONTRAST - CT Abdomen And Pelvis W/O Contrast Injection TECHNIQUE: Helically acquired images were obtained of the abdomen and pelvis without oral or IV contrast. A radiation dose optimization technique was used for this scan. CTDI 14.02/ DLP 682.76 IV Contrast dosage and agent: None. Oral contrast: None. COMPARISON: Chest radiograph December 13, 2021. FINDINGS: LOWER CHEST: Lung bases are clear. No cardiomegaly or pericardial effusion. LIVER: Homogeneous. No focal mass. GALLBLADDER AND BILIARY TREE: Cholecystectomy. No intra- or extrahepatic biliary ductal dilation. PANCREAS: No focal cystic or solid mass. SPLEEN: Normal size without focal cystic or solid mass. ADRENAL GLANDS: No nodules. KIDNEYS AND URETERS: [Vesicle junction 3 mm stone with mild hydronephrosis. 2 mm nonobstructive right renal stone. No right hydronephrosis. No perinephric inflammation. Homogeneous renal parenchymal appearance. PERITONEUM: No ascites or free air. No other fluid collection. BOWEL: No acute gastric finding. No small bowel distention or focal wall thickening. Normal appendix. No acute colonic finding. LYMPH NODES: No enlarged mesenteric or retroperitoneal lymph nodes. VESSELS: Aorta is non-dilated. URINARY BLADDER: Unremarkable. REPRODUCTIVE ORGANS: Gravid uterus. Current cephalic presentation. Placenta anterior without evidence of previa.. ABDOMINAL WALL: No discrete abdominal or pelvic wall hernia. BONES: No lytic or blastic abnormality. CT/Abdomen/Pelvis without Cont IMPRESSION: 3 mm left ureterovesical junction stone with mild hydronephrosis. Nonobstructive right nephrolithiasis. Gravid uterus Electronically Signed: Fernie Butt MD at 23:37 EDT Reading Location ID and State: [facility] / [place] Tel , Service support ,
--- NOTE | 2023-12-02 22:24 | EDS_ITS ---
HPI History of Present Illness Chief Complaint: Flank Pain Informant: patient and spouse/S.O. Narrative Narrative: 28-year-old female presenting to the emergency room with left flank and pelvic pain. Patient is 26 weeks G2, P1 patient with Dr. Guardado's. Patient has been experiencing back pain with this but today is experiencing more left-sided back pain waxing and waning during the day. She laid down for a period and since getting up the pain is more more constant now radiating towards the front low pelvis. She notes some associated urinary frequency. She has had ureterolithiasis in the past. She spoke with Dr. Guardado who recommended emergency department evaluation. Patient denies any fevers. She states it does not matter if she lays down and sit up or gets up the pain has been fairly constant now. 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 Thyroid disease Thyroid nodule Home Medications multivitamin no.47-iron fum 27 mg-folate no.1 1 mg-dha 300 mg capsule (PNV-DHA) cap PO DAILY 07/13/23 [History Last Taken Unknown] ondansetron 4 mg disintegrating tablet 4 mg PO Q6H PRN nausea and vomiting #30 tabs 08/03/23 [Rx Last Taken Unknown] Unithroid 150 mcg tablet (levothyroxine) 150 mcg PO .qd, 2 on Sun and Sun #114 tabs 09/18/23 [Rx Last Taken Unknown] oxycodone 5 mg tablet 5 mg PO Q6H PRN pain 3 days #12 tabs 12/02/23 [Rx Last Taken Unknown] Allergy/AdvReac Type Severity Reaction Status Date / Time ibuprofen [From Advil] Allergy Severe mouth Verified 12/02/23 22:03 tingles and tounge swells naproxen [From Aleve] Allergy Severe Anaphylaxis Verified 12/02/23 22:03 Family History Grandfather Diabetes Paternal Heart disease Grandmother Diabetes maternal Heart disease Maternal Other Colon cancer Hypertension Surgical History H/O thyroidectomy (~2009) H/O wisdom tooth extraction History of cholecystectomy History of tonsillectomy and adenoidectomy Social History adopted: No household members: spouse and children number of children: 1 current occupational status: employed current occupation: [employer] pets and animals: Yes pets and animals: dog(s) history of recent travel: No Smoking Status: Never smoker second hand exposure: No alcohol intake: never substance use type: does not use diet: diabetic well-balanced diet: daily or most days caffeine: Yes Type: coffee Number of servings: 1 eating out: 1-3 times/week during the past year weight has: remained stable what type of physical activity do you participate in: walking frequency: daily duration: 30-45 minutes/day sanket/adventism: Yarsanism seatbelt use: always do you feel safe at home: Yes additional social history: BF- [place]- Self Employed ROS ROS ED Constitutional Constitutional ED: Denies chills or weight loss Eyes Eyes: Denies change in vision or diplopia ENT ENT ED: Denies ear pain, rhinorrhea or sore throat Cardiovascular Cardiovascular: Denies chest pain, orthopnea, palpitations or racing heartbeat Respiratory/Chest Respiratory/Chest: Denies cough, dyspnea or orthopnea Gastrointestinal Gastrointestinal: Reports abdominal pain; Denies diarrhea, nausea or vomiting Genitourinary Genitourinary ED: Reports urinary frequency; Denies dysuria or hematuria Musculoskeletal Musculoskeletal: Reports back pain; Denies arthralgias or myalgias Integumentary Denies abscess or rash Neurologic Neurologic: Denies headache(s) or weakness Psychiatric Psychiatric: Denies anxiety, depression, suicidal ideation or suicidal thoughts Endocrine Endocrinology: Denies polydipsia, polyphagia or polyuria Allergic/Immunologic Allergic/Immunologic ED: Denies mouth swelling, tongue swelling or urticaria EXAM Physical Exam Const Vital Signs: 12/02/23 22:01 12/02/23 22:46 Temperature 98.4 F Temperature Source Temporal Pulse Rate 100 80 Respiratory Rate 18 16 Blood Pressure 127/77 H 122/80 H Blood Pressure Mean 93 94 Pulse Ox 97 100 Oxygen Delivery Method Room Air Room Air Positive well nourished and well developed General Appearance ED: well developed HEENT Reports normocephalic, head/scalp atraumatic and moist mucous membranes Eyes PERRL and EOMs intact bilaterally Neck no lymphadenopathy, supple and no JVD Resp normal respiratory effort and clear to auscultation bilaterally Cardio regular rate, regular rhythm and no murmurs GI normal to inspection, nondistended, normoactive bowel sounds and non-tender Palpation: soft Back/Spine no CVA tenderness and normal ROM Extremity normal to inspection General Extremety ED: Negative for edema General Extremity: Negative for edema Neuro oriented x3 and CN's II-XII intact bilaterally Sensorium / Orientation: alert Motor Exam: strength 5/5 throughout Psych mental status grossly normal Mood & Affect: Negative for depressed or tearful Skin no rashes or lesions noted and no wounds MDM MDM MDM Narrative Medical decision making narrative: He is on his second CBC with a white count of 14.2 hemoglobin 12.2 platelet count 355. Glucose 127 with creatinine 0.56. Urinalysis 5-10 squamous cells 3+ bacteria 50-100 white blood cells negative nitrates 0-5 red cells 500 leukocyte esterase. This will be sent for culture. Risk benefits of obtaining a CT was discussed with the patient especially in light of her . We did obtain a noncontrasted CT which demonstrates a distal 3 mm ureteral stone with mild hydronephrosis hydroureter. Patient received a dose of morphine. Pain is better but still present. She does not wish any further narcotics. She would like to stick with Tylenol but I will go ahead and write her for some oxycodone in case she gets more severe pain. It is also reasonable to cover the urine with antibiotics. Patient to return if worsening or concerns. She is to follow-up with OB as scheduled. Urology as needed. History & Record Review Discussion w/independent historian: Patient and Significant other Lab Data Attestation: I reviewed the patient's lab results. Labs: Laboratory Results - last 24 hr 12/02/23 22:17 WBC 14.2 H RBC 4.06 L Hgb 12.2 Hct 36.2 L MCV 89.2 MCH 30.0 MCHC 33.7 RDW Std Deviation 41.5 RDW Coeff of Abdiaziz 12.7 Plt Count 355 MPV 9.2 Immature Gran % (Auto) 1.200 H Neut % (Auto) 69.0 Lymph % (Auto) 22.3 [place] % (Auto) 6.1 Eos % (Auto) 1.1 Baso % (Auto) 0.3 Absolute Neuts (auto) 9.8 H Absolute Lymphs (auto) 3.16 Nucleated RBC % 0 Sodium 138 Potassium 3.4 L Chloride 107 Carbon Dioxide 25.0 Anion Gap 6 BUN 8 Creatinine 0.56 Estim Creat Clear Calc 163.45 Est GFR (MDRD) Af Amer 166 Est GFR (MDRD) Non-Af 137 BUN/Creatinine Ratio 14.3 Glucose 127 H Calcium 9.1 Urine Color Yellow Urine Clarity Sl Cloudy Urine pH 6.5 Ur Specific [place] 1.015 Urine Protein 30 H Urine Glucose (UA) Normal Urine Ketones Negative Urine Occult Blood 25 H Urine Nitrite Negative Urine Bilirubin Negative Urine Urobilinogen Normal Ur Leukocyte Esterase 500 H Urine RBC 0-5 SEEN Urine WBC 50-100 SEEN Ur Squamous Epith Cells 5-10 SEEN Urine Bacteria 3+ Urine Mucus 0 SEEN Radiography Diagnostic Testing: Clinical Impression(s) from Imaging Studies Abdomen/Pelvis CT 12/02/23 22:23 IMPRESSION: 3 mm left ureterovesical junction stone with mild hydronephrosis. Nonobstructive right nephrolithiasis. Gravid uterus Electronically Signed: Fernie Butt MD at 23:37 EDT Reading Location ID and State: [facility] [place] Tel , Service support , Discharge Plan Triage Chief Complaint: Flank Pain ED Provider: Marlon Leiva Dx/Rx/DC Orders Clinical Impression: , Kidney stone on left side Instructions: ED Kidney Stone with Pain Prescriptions: New oxycodone 5 mg tablet 5 mg PO Q6H PRN (Reason: pain) 3 Days Qty: 12 0RF No Action PNV-DHA 27 mg iron-1 mg -300 mg capsule PO DAILY ondansetron 4 mg tablet,disintegrating 4 mg PO Q6H PRN (Reason: nausea and vomiting) Qty: 30 0RF levothyroxine [Unithroid] 150 mcg tablet 150 mcg PO .qd, 2 on Sun and Sun Qty: 114 3RF Primary Care Provider: Frank Shoemaker Referrals: Frank Shoemaker DO [Primary Care Provider] - Sudeep Goldsmith MD [Med Staff - Active Staff] - As Needed Disposition Disposition: Home, Self Care
[2023-12-02 22:30] LABS: Glucose, Dipstick Normal (Normal); Ketone-Dipstick Negative (Negative); Leukocyte Esterase-Dipstick 500 /ul (Negative); Nitrite-Dipstick Negative (Negative); Occult Blood-Urine 25 /ul (Negative); Protein-Dipstick 30 mg/dl (Negative); Specific Gravity, Urine 1.015 (1.002-1.030); Urine Bilirubin Dipstick Negative (Negative); Urine Urobilinogen Normal (Normal); Urine pH 6.5 (5.0 - 8.0)
[2023-12-02 22:34] LABS: Color, Urine Yellow (Yellow)
[2023-12-02 22:35] LABS: Absolute Lymphocyte Count 3.16 X10^3/uL (0.83-4.51); Absolute Neutrophil Count 9.8 X10^3/uL (2.0-7.7); Basophil# 0.04 X10^3/uL; Basophil% 0.3 % (0-1); Eosinophil# 0.16 X10^3/uL; Eosinophils% 1.1 % (0-5); Hematocrit 36.2 % (37-47); Hemoglobin 12.2 g/dL (12.0-15.0); Lymphocyte # 3.16 X10^3/ul (0.83-4.51); Lymphocyte % 22.3 % (19-41); Mean Corp Hgb Conc 33.7 g/dL (32-36); Mean Corpuscular Volume 89.2 fL (81-99); Mean Platelet Vol. 9.2 fl (6.2-12.0); Monocyte# 0.87 X10^3/uL; Monocyte% 6.1 % (0-10); NRBC Flagged by Analyzer 0 % (0-5); Neutrophil # 9.78 X10^3/uL (2.7-7.7); Platelet Count 355 K/mm3 (150-450); RBC Distribution Width CV 12.7 % (11.6-14.6); RBC Distribution Width SD 41.5 fl (35.1-43.9); Red Blood Count 4.06 M/mm3 (4.2-5.4); Urine Clarity Sl Cloudy (Clear); White Blood Count 14.2 K/mm3 (4.4-11.0)
[2023-12-02 22:36] LABS: Bacteria 3+ /hpf (None Seen); White Blood Cells 50-100 SEEN /hpf (0-5)
[2023-12-02 22:37] LABS: Red Blood Cells-Urine 0-5 SEEN /hpf (0-5); Squamous Epithelial Cells - UA 5-10 SEEN /hpf (5-10)
[2023-12-02 22:39] LABS: Anion Gap 6 (5-15); BUN 8 mg/dL (7-18); BUN/Creat Ratio 14.3 RATIO (10-20); Calcium,Total 9.1 mg/dL (8.5-10.1); Chloride 107 mmol/L (98-107); Creatinine, Serum 0.56 mg/dL (0.55-1.02); EST Glomerular Filtration Rate 137 mL/min (>60); Est Glom Filt Rate - Afr Amer 166 mL/min (>60); Estimated Creatinine Clearance 163.45 ml/min; Glucose 127 mg/dL (74-106); Potassium 3.4 mmol/L (3.5-5.1); Sodium Level 138 mmol/L (136-145)
[2023-12-02 22:46] VITALS: BP 122/80; PULSE 80; RESP 16; O2SAT 100
[2023-12-02] MEDS: Morphine 4 MG/ML Syringe IV (22:47)
[2023-12-02] MEDS: Ondansetron 4 MG/2 ML Vial IV (22:47)
[2023-12-03] VITALS: BP 120/78; PULSE 65; RESP 18; O2SAT 99
[2023-12-03 00:31] VITALS: BP 133/89; PULSE 79; RESP 16; TEMP 36.9; O2SAT 100
== END 2023-12-03 00:32 | disposition home or self-care (01) ==
PROVIDERS: Emergency Provider Emergency Medicine; PCP Family Medicine; Visit Provider Emergency Medicine
DX: O99.891 Other specified diseases and conditions complicating pregnancy (principal); N13.2 Hydronephrosis with renal and ureteral calculous obstruction; Z3A.26 26 weeks gestation of pregnancy; Z90.49 Acquired absence of other specified parts of digestive tract
CPT/HCPCS: 74176; 80048; 81001; 85025; 87086; 96374; 96375; 99283; A4216; J2405

== ENCOUNTER → 2023-12-10 | Outpatient (CLI) | payer OTHER, SELFPAY ==
[2023-12-10 07:30] LABS: Absolute Lymphocyte Count 2.26 X10^3/uL (0.83-4.51); Absolute Neutrophil Count 8.5 X10^3/uL (2.0-7.7); Basophil# 0.04 X10^3/uL; Basophil% 0.3 % (0-1); Eosinophil# 0.11 X10^3/uL; Eosinophils% 0.9 % (0-5); Hematocrit 36.1 % (37-47); Lymphocyte # 2.26 X10^3/ul (0.83-4.51); Lymphocyte % 19.3 % (19-41); Mean Corp Hgb Conc 33.2 g/dL (32-36); Mean Corpuscular Hgb 29.3 pg (27.0-32.0); Mean Corpuscular Volume 88.3 fL (81-99); Mean Platelet Vol. 9.4 fl (6.2-12.0); Monocyte# 0.69 X10^3/uL; Monocyte% 5.9 % (0-10); NRBC Flagged by Analyzer 0 % (0-5); Neutrophil # 8.46 X10^3/uL (2.7-7.7); Neutrophil % 72.6 % (47-70); Platelet Count 329 K/mm3 (150-450); RBC Distribution Width CV 12.2 % (11.6-14.6); RBC Distribution Width SD 39.5 fl (35.1-43.9); Red Blood Count 4.09 M/mm3 (4.2-5.4); White Blood Count 11.7 K/mm3 (4.4-11.0)
[2023-12-10 07:59] LABS: Glucose GTT-Gestation. Fasting 81 mg/dL (<105)
[2023-12-10 08:13] LABS: Thyroid Stim Hormone (TSH) 4.26 uIU/mL (0.358-3.74)
[2023-12-10 09:12] LABS: Glucose GTT-Gestational 1 Hr 203 mg/dL (<190)
[2023-12-10 09:42] LABS: HIV - WCH Non-Reactive (Nonreactive); Syphilis Antibodies Non-reactive
[2023-12-10 09:59] LABS: Glucose GTT-Gestational 2 Hr 173 mg/dL (<165)
[2023-12-10 11:01] LABS: Glucose GTT-Gestational 3 Hr 67 L (<145)
== END | disposition home or self-care (01) ==
LOC: LAB 06:48
PROVIDERS: Internal Medicine Endocrinology, Diabetes & Metabolism; PCP Family Medicine; Referring Provider Obstetrics & Gynecology; Visit Provider Obstetrics & Gynecology
DX: E03.8 Other specified hypothyroidism (principal); E06.3 Autoimmune thyroiditis; Z86.32 Personal history of gestational diabetes; Z3A.00 Weeks of gestation of pregnancy not specified; O99.280 Endocrine, nutritional and metabolic diseases complicating pregnancy, unspecified trimester
CPT/HCPCS: 36415; 82951; 82952; 84439; 84443; 85025; 86703; 86780

== ENCOUNTER → 2024-01-17 | Outpatient (CLI) | payer OTHER, SELFPAY ==
[2024-01-17 12:45] LABS: T4 Free Direct 1.67 ng/dL (0.76-1.46); Thyroid Stim Hormone (TSH) 0.02 uIU/mL (0.358-3.74)
== END | disposition home or self-care (01) ==
LOC: BIMLAB 09:41
PROVIDERS: Visit Provider Internal Medicine Endocrinology, Diabetes & Metabolism
DX: O99.280 Endocrine, nutritional and metabolic diseases complicating pregnancy, unspecified trimester (principal); E07.9 Disorder of thyroid, unspecified; Z3A.00 Weeks of gestation of pregnancy not specified
CPT/HCPCS: 36415; 84439; 84443

== ENCOUNTER → 2024-02-04 | Outpatient (CLI) | payer OTHER, SELFPAY ==
--- NOTE | 2024-02-04 11:31 | US_ITS ---
STUDY: SECOND AND THIRD TRIMESTER OBSTETRICAL ULTRASOUND - LIMITED REASON FOR EXAM: Female, 28 years old growth LMP: May 28, 2023 PRIOR ULTRASOUND: None. TECHNIQUE: Transabdominal TECHNICAL QUALITY: Adequate. FINDINGS: There is a single intrauterine fetus. The fetus is in a cephalic presentation. There is demonstrated cardiac activity with a heart rate of 148 bpm. There is a normal amniotic fluid volume. The largest amniotic fluid pocket measures 4.82 cm. The amniotic fluid index (ADRIANA) is 15.81 cm. The placenta is anterior in location and is not low lying. There are Grade 3 placental changes. The cervix was not measured due to head position. BIOMETRY: BPD: 9.07 cm: 36 weeks, 5 days HC: 32.22 cm: 36 weeks, 3 days AC: 32.09 cm: 36 weeks, 0 days FL: 7.04 cm: 36 weeks, 1 days Age by LMP: 36 weeks, 0 days. MICHAEL by LMP: March 03, 2024. age by current US: 36 weeks, 3 days. MICHAEL by current US: February 29, 2024. Estimated weight: 2900 grams, +/- 435 grams, 59.2 percentile. US/OB Limited With Biometrics IMPRESSION: Single live uterine gestation with mean gestational age of 36 weeks and 3days Electronically Signed: Darwin Cunningham MD at 14:57 EDT ,
== END | disposition home or self-care (01) ==
LOC: US 11:27
PROVIDERS: PCP Family Medicine; Referring Provider Obstetrics & Gynecology; Visit Provider Obstetrics & Gynecology
DX: O24.410 Gestational diabetes mellitus in pregnancy, diet controlled (principal); O09.93 Supervision of high risk pregnancy, unspecified, third trimester; Z3A.00 Weeks of gestation of pregnancy not specified
CPT/HCPCS: 76816

== ENCOUNTER → 2024-02-05 | Outpatient (CLI) | payer OTHER, SELFPAY | END | disposition home or self-care (01) | LOC: LAB 10:45 | PROVIDERS: Referring Provider Advanced Practice Midwife; Visit Provider Advanced Practice Midwife | DX: O09.93 Supervision of high risk pregnancy, unspecified, third trimester (principal); Z3A.00 Weeks of gestation of pregnancy not specified | CPT/HCPCS: 87081 ==

== ENCOUNTER 2024-03-03 07:00 | Inpatient (IN) | payer OTHER, SELFPAY ==
[2024-03-03] VITALS (39 sets, daily range): BP systolic 108–136; BP diastolic 57–85; PULSE 74–120; RESP 15–17; TEMP 36.1–37; O2SAT 97–100; BMI 29.9
--- NOTE | 2024-03-03 07:28 | HP.PCM.OB_ITS ---
HPI - General General Date of Admission: 03/03/24 Date of Service: 03/03/24 HPI Narrative MERON SALAS, is a 28 F 40.0 weeks who presents to unit for IOL for GDM. 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 Gestational diabetes History of kidney stones Thyroid nodule Thyroid disease Home Medications ?Medication ?Instructions ?Recorded ?Last Taken ?Type multivitamin no.47-iron fum 27 cap PO DAILY 07/13/23 Unknown History mg-folate no.1 1 mg-dha 300 mg capsule (PNV-DHA) blood sugar diagnostic (Blood #120 ea 12/11/23 Unknown Rx Glucose Test strips) blood-glucose meter #1 ea 12/11/23 Unknown Rx lancets #200 ea 12/11/23 Unknown Rx Unithroid 200 mcg tablet 400 mcg (2 x 200 mcg) PO .COMPLEX 02/01/24 Unknown Rx (levothyroxine) #40 tabs Allergy/AdvReac Type Severity Reaction Status Date / Time ibuprofen (From Advil) Allergy Severe mouth Verified 02/29/24 08:51 tingles and tounge swells naproxen (From Aleve) Allergy Severe Anaphylaxis Verified 02/29/24 08:51 Family History Grandfather Diabetes Paternal Heart disease Grandmother Diabetes maternal Heart disease Maternal Other Colon cancer Hypertension Surgical History H/O wisdom tooth extraction History of cholecystectomy H/O thyroidectomy (~2009) History of tonsillectomy and adenoidectomy Social History adopted: No household members: spouse and children number of children: 1 current occupational status: employed current occupation: [employer] pets and animals: Yes pets and animals: dog(s) history of recent travel: No Smoking Status: Never smoker second hand exposure: No alcohol intake: never substance use type: does not use diet: diabetic well-balanced diet: daily or most days caffeine: Yes Type: coffee Number of servings: 1 eating out: 1-3 times/week during the past year weight has: remained stable what type of physical activity do you participate in: walking frequency: daily duration: 30-45 minutes/day sanket/confucianist: Taoist seatbelt use: always do you feel safe at home: Yes additional social history: BF- [place]- Self Employed History 2 Elective abortions Hx Para 1 Spontaneous abortions Hx # Term Pregnancies 1 Ectopic pregnancies Hx # Pregnancies Multiple births # of living children 1 Past Pregnancies Del. Date Name GA/Weeks Outcome Route Bth Weight Infant Gen Labor Lgth Anesthesia Del Locatn Provider FOB 01/08/21 Tiffanie 39 live - full term Female [facility] Zachariahony Delivery Date: 01/08/21 Last Updated by: Gillian Duran IOL [email or web address] Visit Details Expected Delivery Route/Plan Labor Preferences- CB/BF classes: no labor support person: [place] labor intervention preferences: [] pain management options preferred: epidural cut cord/dad catch: her mom cut cord : yes PP control planned: discussed discussed possible routes of delivery and associated risks: [] special requests: [] Plans Covid status: declined Flu vaccine: declined Tdap vaccine: declines Rhogam: NA LARC form signed: yes movement and labor precautions reviewed. Problem list reviewed and updated with the most current plan of care details and appropriate orders placed. Relevant counseling for the gestational age provided. Continue routine care and follow up unless otherwise noted in visit notes/problem list details OB Flowsheet Initial Weight: Not Recorded Date -?-?-?-?-?-?-?-?-?-?-?-?- EGA Weight BP Urine Prot -?-?-?-?-?-?-?-?-?-?-?-?- Glucose FHR FuHt Pres Dilation -?-?-?-?-?-?-?-?-?-?-?-?- Effaced St Visit Note 08/23/23 -?-?-?-?-?-?-?-?-?-?-?-?- 12w 3d 172 lb 8 oz 106/70 Nega tive -?-?-?-?-?-?-?-?-?-?-?-?- Negative 160 -?-?-?-?-?-?-?-?-?-?-?-?- SM- n ovb crampi ng 09/17/23 -?-?-?-?-?-?-?-?-?-?-?-?- 16w 0d 177 lb 8 oz 102/64 Nega tive -?-?-?-?-?-?-?-?-?-?-?-?- Negative 154 -?-?-?-?-?-?-?-?-?-?-?-?- MH-No VB. Has fe lt flutters. Denies concerns 10/16/23 -?-?-?-?-?-?-?-?-?-?-?-?- 20w 1d 178 lb 121/81 Negative -?-?-?-?-?-?-?-?-?-?-?-?- Negative 155 20 -?-?-?-?-?-?-?-?-?-?-?-?- KW- no vb/crampi ng. feeling movement. Repeating thyroid labs today. Discussed anatomy scan. no concerns today. Considering skipping 1 hour GCT and doing 3 hour due to hx of GDM. 11/14/23 -?-?-?-?-?-?-?-?-?-?-?-?- 24w 2d 181 lb 8 oz 113/72 Nega tive -?-?-?-?-?-?-?-?-?-?-?-?- Negative 150 23 -?-?-?-?-?-?-?-?-?-?-?-?- JV- no lof, vagi nal bleeding, or cramping. pt wants to go straight to the 3 hr gtt and not the 1 hr due to h/o GDM. She has a rpt tsh scheduled for 6 weeks since her last one and follows with Dr. jay. 12/11/23 -?-?-?-?-?-?-?-?-?-?-?-?- 28w 1d 185 lb 8 oz 104/68 Nega tive -?-?-?-?-?-?-?-?-?-?-?-?- Negative 153 28 -?-?-?-?-?-?-?-?-?-?-?-?- MH-No VB, LOF. G ood FM. Now GDM and started check glucose yesterday. Diet controlled last . Larc. Declines tdap 12/24/23 -?-?-?-?-?-?-?-?-?-?-?-?- 30w 0d 186 lb 118/62 Trace -?-?-?-?-?-?-?-?-?-?-?-?- Negative 154 30 -?-?-?-?-?-?-?-?-?-?-?-?- MH-NO VB, LOF. G ood FM. All glucose readings WNL. Note urine/has not had much to drink this AM. Denies GUZMAN, vision changes. 36 wk growth US orderd. 01/08/24 -?-?-?-?-?-?-?-?-?-?-?-?- 32w 1d 186 lb 106/82 Negative -?-?-?-?-?-?-?-?-?-?-?-?- Negative 140 32 -?-?-?-?-?-?-?-?-?-?-?-?- SM- no vb lof go od fm no regular ctx BS controlled 01/23/24 -?-?-?-?-?-?-?-?-?-?-?-?- 34w 2d 187 lb 8 oz 100/70 Nega tive -?-?-?-?-?-?-?-?-?-?-?-?- Negative 161 34 -?-?-?-?-?-?-?-?-?-?-?-?- JV- bs well cont rolled. thyroid was not but was adjusted by Dr. Jay. no complaints. has growth scan on 02/0302/05/24 -?-?-?-?-?-?-?-?-?-?-?-?- 36w 1d 187 lb 4 oz 108/72 Nega tive -?-?-?-?-?-?-?-?-?-?-?-?- Negative 145 36 0 -?-?-?-?-?-?-?-?-?-?-?-?- kw- no vb/lof/ct x. good fm. GBS today 02/13/24 -?-?-?-?-?-?-?-?-?-?-?-?- 37w 2d 187 lb 116/75 -?-?-?-?-?-?-?-?-?-?-?-?- 130 36 1 -?-?-?-?-?-?-?-?-?-?-?-?- -3 KW- no v b/lof/ctx. good fm. bs controlled. 02/19/24 -?-?-?-?-?-?-?-?-?-?-?-?- 38w 1d 189 lb 113/79 -?-?-?-?-?-?-?-?-?-?-?-?- 130 37 0.5 -?-?-?-?-?-?-?-?-?-?-?-?- SM- no vb lof go od fm no regular ctx BS well controlled 02/29/24 -?-?-?-?-?-?-?-?-?-?-?-?- 39w 4d 187 lb 4 oz 122/82 Nega tive -?-?-?-?-?-?-?-?-?-?-?-?- Negative 130 38 Cephalic 1 .5 -?-?--?-?-?-?-?-?-?-?-?-?- SM- no vb lof go od fm no regular ctx plan IOL sunday BS controlled NST FHR Rate Baby A Baseline: 135 Variability:: Moderate Uterine Activity:: irregular ROS Constitutional Constitutional: Denies change in weight, fatigue, fever(s), headache(s), poor appetite or weakness Eyes Eyes: Denies blurry vision, change in vision, floaters, seeing flashes or spots in vision ENT HEENT: Denies dizziness, headache(s), loss taste/smell or sore throat Cardiovascular Cardiovascular: Denies chest pain, dizziness, dyspnea, irregular heart rhythm, lightheadedness, palpitations or rapid heart rate Respiratory/Chest Respiratory/Chest: Denies change in mental status, chest tightness, cough, dyspnea or breast pain Gastrointestinal Gastrointestinal: Denies anorexia, chewing difficulty, constipation, diarrhea or weight changes Genitourinary Genitourinary: Denies difficulty urinating, dysuria, flank pain, genital pain, urinary frequency or urinary urgency Musculoskeletal Musculoskeletal: Denies back pain, difficulty walking, extremity pain, joint pain, muscle cramps or muscle weakness Integumentary Integumentary: Denies lesions or unusual bruising Neurologic Neurologic: Denies abnormal movements, abnormal speech, dizziness, numbness, seizure-like activity, syncope or weakness Psychiatric Psychiatric: Denies behavioral changes, change in appetite, confusion, depression, homicidal ideation, suicidal ideation or suicidal thoughts Endocrine Endocrinology: Denies excessive sweating, polydipsia or polyuria Hematologic/Lymphatic Hematologic/Lymphatic: Denies anemia Allergic/Immunologic Allergic/Immunologic: Denies itchy eyes, lip swelling, throat swelling, tongue swelling or wheezing Vital Signs Vital Signs Vital Signs: 03/03/24 07:27 Temperature 98.4 F Physical Exam Const alert, oriented x3 and no apparent distress General Appearance: cooperative Orientation / Consciousness: awake HEENT normocephalic Neck full ROM Lymph Lymphatic: no lymphadenopathy noted Chest inspection of chest normal Resp normal respiratory effort and normal air movement Effort and Inspection: able to speak in complete sentences and symmetric chest movement GI soft to palpation and non-tender Inspection: gravid Palpation: soft; Negative for tender external exam normal Manual OB Exam: dilated 2.5, effaced 70 and station -2 Back/Spine normal to inspection Extremity normal to inspection and full ROM Skin no rashes or lesions noted Psych mental status grossly normal Appearance: grossly normal Speech: normal speech Labs Labs Labs: Blood Type O POSITIVE Antibody Screen NEGATIVE Hct 36.1 % (37-47) L Hgb 12.0 g/dL (12.0-15.0) Obstetrics Ultrasound Syphilis Total Ab Non-reactive Rubella IgG Antibody Reactive (Nonreactive) Hep Bs Antigen Non-Reactive (Nonreactive) Hepatitis C Antibody Non-Reactive (Nonreactive) Chlamydia DNA (NASEEM) Negative (Negative) N.gonorrhoeae DNA (NASEEM) Negative (Negative) HIV 1&2 Antibody Non-Reactive (Nonreactive) Glucose 1 Hr 50 gm 139 mg/dL (70-140) Gest Glucose Tolerance MG/DL Miscellaneous Test Assessment & Plan (1) Encounter for induction of labor: PLAN: Patient presents IOL, plan management for with pitocin/AROM. Pain management: plans epidural. GBS negative. Management of any complications: none I have reviewed the [facility] and made any clinically relevant updates. Dr Romero aware of admission and assessment and agrees with above plan (2) Gestational diabetes: QUALIFIERS: Gestational diabetes mellitus control: diet-controlled Trimester: third trimester Qualified Code(s): O24.410 - Gestational diabetes mellitus in , diet controlled COMMENT: diet controlled plan iol 40 weeks (3) Supervision of high-risk : QUALIFIERS: Trimester: third trimester Qualified Code(s): O09.93 - Supervision of high risk , unspecified, third trimester COMMENT: PRR , MICHAEL 03/03/24 PC Tiffanie, [place] GIRL (4) : QUALIFIERS: Weeks of gestation: 39 weeks Qualified Code(s): Z3A.39 - 39 weeks gestation of COMMENT: GBS neg, declined genetic & carrier testing. 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 Charges/Coding Multi Select Codes Urinary/Genital Urinary/Genital CPT Codes: No Charge
[2024-03-03] MEDS: Lactated Ringers 1,000 ML 50 ML IV (07:40)
[2024-03-03] MEDS: Oxytocin 15 Units/NS 250ml 15 UNITS/250 ML IV.SOLN 2 UNITS IV (07:50)
[2024-03-03 08:04] LABS: Absolute Lymphocyte Count 1.79 X10^3/uL (0.83-4.51); Absolute Neutrophil Count 8.7 X10^3/uL (2.0-7.7); Basophil# 0.04 X10^3/uL; Basophil% 0.4 % (0-1); Eosinophil# 0.13 X10^3/uL; Eosinophils% 1.1 % (0-5); Hematocrit 36.2 % (37-47); Hemoglobin 11.8 g/dL (12.0-15.0); Lymphocyte # 1.79 X10^3/ul (0.83-4.51); Lymphocyte % 15.7 % (19-41); Mean Corp Hgb Conc 32.6 g/dL (32-36); Mean Corpuscular Hgb 27.5 pg (27.0-32.0); Mean Corpuscular Volume 84.4 fL (81-99); Mean Platelet Vol. 10.2 fl (6.2-12.0); Monocyte# 0.67 X10^3/uL; Monocyte% 5.9 % (0-10); NRBC Flagged by Analyzer 0 % (0-5); Neutrophil # 8.73 X10^3/uL (2.7-7.7); Neutrophil % 76.4 % (47-70); Platelet Count 273 K/mm3 (150-450); RBC Distribution Width CV 15.7 % (11.6-14.6); RBC Distribution Width SD 47.8 fl (35.1-43.9); Red Blood Count 4.29 M/mm3 (4.2-5.4); White Blood Count 11.4 K/mm3 (4.4-11.0)
[2024-03-03 08:17] LABS: Bedside Glucose 105 mg/dL (74-106)
[2024-03-03 09:08] LABS: Syphilis Antibodies Non-reactive
[2024-03-03] MEDS: Lactated Ringers 1,000 ML 999 ML IV (10:18)
[2024-03-03 10:30] LABS: Bedside Glucose 68 mg/dL (74-106)
[2024-03-03] MEDS: fentaNYL-bupivacaine (epidural) 100 ML BAG EPIDURAL ×2 (11:41→15:51)
--- NOTE | 2024-03-03 13:01 | PCM.PN.BLA ---
Progress Note comfortable with epidural current tracing: FHT: 140 Moderate variability reactive no decelerations category I tracing [place]: 2-3 Contractions Membranes:AROM clear SVE:4/70/-2 A/P: Continue with position changes Titrate pitocin per protocol Epidural per anesthesia GBS neg Anticipate Dr Romero aware of above assessment and agrees with plan of care Assessment & Plan Assessment/Plan (1) Encounter for induction of labor: (2) Gestational diabetes: QUALIFIERS: Gestational diabetes mellitus control: diet-controlled Trimester: third trimester Qualified Code(s): O24.410 - Gestational diabetes mellitus in , diet controlled (3) Supervision of high-risk : QUALIFIERS: Trimester: third trimester Qualified Code(s): O09.93 - Supervision of high risk , unspecified, third trimester (4) : QUALIFIERS: Weeks of gestation: 39 weeks Qualified Code(s): Z3A.39 - 39 weeks gestation of (5) Thyroid disease affecting : (6) 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
[2024-03-03] MEDS: Amnioinfusion- 0.9% NS 1,000 ML IV.SOLN. 1000 ML INTRA-UTER (13:51)
[2024-03-03 14:41] LABS: Bedside Glucose 79 mg/dL (74-106)
[2024-03-03] MEDS: Lactated Ringers 1,000 ML 200 ML IV (15:51)
[2024-03-03] MEDS: LACTATED RINGERS 500 ML 999 ML IV (16:38)
[2024-03-03 17:10] LABS: Bedside Glucose 67 mg/dL (74-106)
--- NOTE | 2024-03-03 17:22 | OP.PCM_ITS ---
Assessment & Plan (1) Vaginal delivery: COMMENT: KW IOL GDM 40.0 Girl (2) Encounter for induction of labor: (3) Gestational diabetes: QUALIFIERS: Gestational diabetes mellitus control: diet-controlled Trimester: third trimester Qualified Code(s): O24.410 - Gestational diabetes mellitus in , diet controlled COMMENT: diet controlled plan iol 40 weeks (4) Supervision of high-risk : QUALIFIERS: Trimester: third trimester Qualified Code(s): O09.93 - Supervision of high risk , unspecified, third trimester COMMENT: PRR , MICHAEL 03/03/24 PC T[place], [place] GIRL (5) : QUALIFIERS: Weeks of gestation: 39 weeks Qualified Code(s): Z3A.39 - 39 weeks gestation of COMMENT: GBS neg, declined genetic & carrier testing. 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 Maternal Data Information MICHAEL Calculator Estimated Delivery Date Method Current WG Current Estimate 03/03/24 LMP (Certain) 40w 0d Final MICHAEL: 03/03/24 Final MICHAEL Source: [place] >20 weeks Gestational age: 40.0 Vaginal Delivery Maternal Presentation Maternal Presentation: Medically Indicated Induction Maternal Presentation: Progressed well to 10cm dilated and made steady progress with effective maternal pushing. Delivered the head in LEANDRO presentation. The head was delivered atraumatically and no nuchal cord was identified. The anterior and posterior shoulders delivered without complication followed by the rest of the infant and the infant was placed on the maternal abdomen. Delayed cord clamping was employed for approximately 3 minutes. Cord was clamped and cut and gentle traction was applied to the cord and the placenta delivered spontaneously. Immediately following, it was noted to be intact with a 3 vessel cord. The perineum and vagina were inspected and noted to have a first degree laceration which was repaired with 3-0 Vicryl in the usual fashion. EBL was 100cc. Patient and infant tolerated delivery well. Apgars 8/9. Dr Ponce notified of vaginal delivery and orders reviewed. Physician agrees with current plan of care. 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: Latoya Menjivar Type of Anesthesia: Epidural Estimated Blood Loss: 100 Time of Delivery: 17:03 Findings Presentation: Vertex Amniotic Membrane Rupture Type: Artificial Amniotic Fluid Description: Clear Placental Delivery Description: Spontaneous Placenta Disposition: [facility] Cord Vessel Description: 3 Vessels Cord Entanglement: None Infant A Gender: Female (1 minute): 8 (5 minute): 9 Delayed Cord Clamping: Yes Post Vaginal Delivery Medications Given After Delivery: IV Pitocin Episiotomy Description: None Laceration: 1st degree Complication Complications: None Multi Select Codes Urinary/Genital Urinary/Genital CPT Codes: 71415 Vaginal Delivery [facility]
--- NOTE | 2024-03-03 17:25 | DCINST_ITS ---
Discharge Instructions Diet Discharge Diet: No restrictions Activity Discharge Activity: Return to Normal Activity May resume sexual activity in: 6-8 weeks Dressing / Incision Call your doctor if you observe: Fever of 101 or Higher, Coldness, Increased Pain, Numbness or Tingling, Change in Color, Inability to urinate, Inability to have a bowel movement, Using more than 1 pad per hour, Shortness of breath, Dizziness, Fainting spells, Swelling in the ankles, Chest pain, Increased palpitations (irregular heartbeat), Calf discomfort and Uncontrolled pain Follow Up Care Please Follow Up With: Latoya Menjivar CNM When: Please call the office to schedule your follow up appointment in 6 weeks. If you had high blood pressure please call to schedule an appointment in 2 weeks. Test Results: Test results from this visit will be discussed in further detail at your follow- up appointment, if applicable. Discharge Plan Admission Admit Date/Time: 03/03/24 07:00 Attending Provider: Latoya Menjivar Primary Care Provider: Care Physician,Ines Primary Discharge Orders/Prescriptions Prescriptions: No Action levothyroxine [Unithroid] 200 mcg tablet 400 mcg PO .COMPLEX Qty: 40 8RF Rx Instructions: 400 mcg orally Mon, Wed PNV-DHA 27 mg iron-1 mg -300 mg capsule 1 cap PO DAILY (DME) Blood Glucose Test Strip See Rx Instructions .MEDSUPPLY Qty: 120 5RF Rx Instructions: As directed-fasting & 2 hr post meals (DME) blood-glucose meter Misc See Rx Instructions .MEDSUPPLY Qty: 1 0RF Rx Instructions: As directed- Test fasting and 2 hours after meals (DME) lancets Misc See Rx Instructions .MEDSUPPLY Qty: 200 5RF Rx Instructions: As directed-fasting & 2 hr post meals Referrals / Follow Up: Care Physician,No Primary [Primary Care Provider] -
[2024-03-03] MEDS: Oxytocin 15 Units/NS 250ml 15 UNITS/250 ML IV.SOLN 83 UNITS IV (17:42)
[2024-03-03 18:46] LABS: Bedside Glucose 113 mg/dL (74-106)
[2024-03-04] VITALS (8 sets, daily range): BP systolic 99–122; BP diastolic 61–75; PULSE 76–93; RESP 16; TEMP 36.3–36.8; O2SAT 98
[2024-03-04] MEDS: Acetaminophen 500 MG Tablet 1000 MG PO (00:05)
[2024-03-04 05:30] LABS: Bedside Glucose 69 mg/dL (74-106)
--- NOTE | 2024-03-04 07:42 | PCM.PN.OB ---
Subjective Subjective Patient doing well without complaints. Tolerating PO. Ambulating and voiding without difficulty. Feeding well. Denies chest pain, shortness of breath, calf pain/swelling, fevers, chills, lightheadedness. Objective Data Objective Data Vital Signs: Vital Signs Temp Pulse Resp BP Pulse Ox O2 Del Method 98.2 F 76 16 99/61 98 Room Air 03/04/24 05:05 03/04/24 05:05 03/04/24 05:05 03/04/24 05:05 03/04/24 05:05 03/04/24 05:05 Oxygen Delivery Method Room Air Weight: 186 lb Body Mass Index (BMI) 29.9 Intake & Output: Intake and Output for Last 24 Hours 03/02/24 03/03/24 03/04/24 23:59 23:59 23:59 Intake Total 4088.33 / 4088.33 Output Total 2200 / 2200 400 / 400 Balance 1888.33 / 1888.33 -400 / -400 Lab / Micro Data 03/03/24 07:40 Labs: Laboratory Results - last 24 hr 03/03/24 07:40: WBC 11.4 H, RBC 4.29, Hgb 11.8 L, Hct 36.2 L, MCV 84.4, MCH 27.5, MCHC 32.6, RDW Std Deviation 47.8 H, RDW Coeff of Abdiaziz 15.7 H, Plt Count 273, MPV 10.2, Immature Gran % (Auto) 0.500, Neut % (Auto) 76.4 H, Lymph % (Auto) 15.7 L, [place] % (Auto) 5.9, Eos % (Auto) 1.1, Baso % (Auto) 0.4, Absolute Neuts (auto) 8.7 H, Absolute Lymphs (auto) 1.79, Nucleated RBC % 0, Syphilis Total Ab Non-reactive, Blood Type O POSITIVE, Antibody Screen NEGATIVE 03/03/24 07:59: POC Glucose 105 03/03/24 10:10: POC Glucose 68 L 03/03/24 14:22: POC Glucose 79 03/03/24 16:51: POC Glucose 67 L 03/03/24 18:27: POC Glucose 113 H 03/04/24 05:10: POC Glucose 69 L Physical Exam Const alert and oriented x3 HEENT normocephalic Eyes PERRL Neck full ROM Resp normal respiratory effort GI soft to palpation GI Narrative: FF below U Assessment & Plan (1) Vaginal delivery: COMMENT: KW IOL GDM 40.0 Girl Marcia (2) Gestational diabetes: QUALIFIERS: Gestational diabetes mellitus control: diet-controlled Trimester: third trimester Qualified Code(s): O24.410 - Gestational diabetes mellitus in , diet controlled COMMENT: diet controlled plan iol 40 weeks. Resolved pp PLAN: Plan s/p PPD # 1 1. routine post delivery care 2. breast feeding- support given 3. rh positive 4. rubella immune 5. home today
== END 2024-03-04 18:30 | disposition home or self-care (01) | DRG 807 ==
PROVIDERS: Admitting Provider Advanced Practice Midwife; Visit Provider Advanced Practice Midwife
DX: O24.420 Gestational diabetes mellitus in childbirth, diet controlled (principal); Z37.0 Single live birth; E06.3 Autoimmune thyroiditis; E89.0 Postprocedural hypothyroidism; O99.284 Endocrine, nutritional and metabolic diseases complicating childbirth; Z3A.40 40 weeks gestation of pregnancy; Z79.890 Hormone replacement therapy; O70.0 First degree perineal laceration during delivery
CPT/HCPCS: 59025; 59050; 82962; 85025; 86780; 86850; 86900; 86901; 99221; J7030; J7120; G0378

== ENCOUNTER → 2024-05-12 | Outpatient (CLI) | payer OTHER, SELFPAY ==
[2024-05-12 11:11] LABS: T4 Free Direct 1.13 ng/dL (0.76-1.46)
== END | disposition home or self-care (01) ==
PROVIDERS: PCP Family Medicine; Referring Provider Nurse Practitioner Family; Visit Provider Nurse Practitioner Family
DX: E03.8 Other specified hypothyroidism (principal); E06.3 Autoimmune thyroiditis
CPT/HCPCS: 36415; 84439; 84443

== ENCOUNTER → 2025-02-05 | Outpatient (CLI) | payer OTHER, SELFPAY | END | disposition home or self-care (01) | LOC: BIMLAB 09:08 | PROVIDERS: PCP Family Medicine; Referring Provider Internal Medicine Endocrinology, Diabetes & Metabolism; Visit Provider Internal Medicine Endocrinology, Diabetes & Metabolism | DX: E03.8 Other specified hypothyroidism (principal); E06.3 Autoimmune thyroiditis | CPT/HCPCS: 36415; 84439; 84443 ==

== ENCOUNTER → 2025-04-16 | Outpatient (CLI) | payer OTHER, SELFPAY ==
[2025-04-16 10:43] LABS: Cholesterol 180 mg/dL (<=200); Low Density Lipoprotein Calc. 108 mg/dL; Triglycerides 60 mg/dL; Very Low Density Lipoprotein 12 mg/dL (5-40); cholesterol:hdl ratio screen 3.02
[2025-04-16 10:58] LABS: Anion Gap 12 (5-15); BUN 11 mg/dL (4-19); BUN/Creat Ratio 16.3 RATIO (10-20); Calcium,Total 8.9 mg/dL (7.6-11.0); Carbon Dioxide 23.0 mmol/L (21.0-32.0); Chloride 103 mmol/L (98-108); Glucose 92 mg/dL (70-99); Potassium 4.0 mmol/L (3.3-5.1)
[2025-04-16 11:53] LABS: Vitamin B12 669 pg/mL (180-914); Vitamin D,25 Hydroxy 22.5 ng/mL (30-100)
== END | disposition home or self-care (01) ==
LOC: BWCLAB 08:22
PROVIDERS: Internal Medicine Endocrinology, Diabetes & Metabolism; PCP Family Medicine; Referring Provider Advanced Practice Midwife; Visit Provider Advanced Practice Midwife
DX: E03.8 Other specified hypothyroidism (principal); E06.3 Autoimmune thyroiditis; Z13.220 Encounter for screening for lipoid disorders
CPT/HCPCS: 36415; 80048; 80061; 82306; 82607; 84439; 84443